=== PATIENT | female | born 1990 | race Caucasian/White ===

== ENCOUNTER 2023-03-21 16:25 | Emergency (ER) | payer OTHER, SELFPAY ==
[2023-03-21 16:32] VITALS: BP 110/76; PULSE 82; RESP 16; TEMP 36.8; O2SAT 100; BMI 21.0
--- NOTE | 2023-03-21 17:09 | ED.DENTAL1 ---
HPI - Dental/Oral General Chief complaint: Dental/Oral Stated complaint: DENTAL PAIN Time Seen by Provider: 03/21/23 16:53 Source: patient Mode of arrival: walk-in History of Present Illness HPI Narrative: patient is a 33-year-old female presents to the emergency department for continued swelling and pain to the left side of the face. Patient was seen at [facility] emergency department several weeks ago for swelling to the left side of face and was diagnosed with a dental abscess. Her pharmacy records, she was prescribed 300 mg of clindamycin 3 times a day for seven days. She states she has had a return of the swelling and no improvement of pain. She continues to have a foul taste in the mouth. No difficulty swallowing or breathing. No objective fevers or injuries. 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 She is not concerned for . Related Data Home Medications Medication Instructions Recorded Confirmed aripiprazole 2 mg tablet (Abilify) 2 mg PO DAILY 03/21/23 03/21/23 buprenorphine 300 mg/1.5 mL 300 mg subcut .monthy 03/21/23 03/21/23 solution,exten.rel.subcutaneous syringe (Sublocade) prazosin 1 mg capsule 1 mg PO DAILY 03/21/23 03/21/23 Previous Rx's Medication Instructions Recorded clindamycin HCl 150 mg capsule 300 mg PO Q6H 10 days #80 caps 03/21/23 ketorolac 10 mg tablet 10 mg PO TID PRN pain #10 tabs 03/21/23 ondansetron 4 mg disintegrating 4 mg PO Q6H PRN nausea and 03/21/23 tablet vomiting #12 tabs Allergies Allergy/AdvReac Type Severity Reaction Status Date / Time cefaclor [From [facility]] Allergy Severe Verified 03/21/23 16:32 Review of Systems ROS Constitutional Denies: fever or chills Ears, nose, mouth, and throat Denies: throat pain Cardiovascular Denies: chest pain Respiratory Denies: shortness of breath or cough Gastrointestinal Denies: nausea or vomiting Musculoskeletal Denies: back pain Integumentary/Breast Denies: rash Neurological Reports: headache Endocrine Denies: excessive urination Hematologic/Lymphatic Denies: easy bruising Exam Narrative Exam Narrative: Gen.: Awake, alert, in no distress Head: Normocephalic, atraumatic ENT: Moist mucous membranes; mild edema noted in the left mandible, airway widely open and patent with uvula midline. Normal speech. No trismus or drooling. Left tympanic membrane is clear. Multiple dental caries noted in the mouth with root exposure and erosion of tooth #16 and tooth #17. No redness or swelling under the tongue. Respiratory: No respiratory distress Extremities: Moves extremities equally Psych: Normal mood and affect Neuro: No focal neuro deficit Skin: Warm, dry, intact Constitutional Vital Signs, click to edit/add: Last Vital Signs Temp 98.2 F 03/21/23 16:32 Pulse 82 03/21/23 16:32 Resp 16 03/21/23 16:32 BP 110/76 03/21/23 16:32 Pulse Ox 100 03/21/23 16:32 O2 Del Method Room Air 03/21/23 16:32 Course Vital Signs Vital signs: Vital Signs Temperature 98.2 F 03/21/23 16:32 Pulse Rate 82 03/21/23 16:32 Respiratory Rate 16 03/21/23 16:32 Blood Pressure 110/76 03/21/23 16:32 Pulse Oximetry 100 03/21/23 16:32 Oxygen Delivery Method Room Air 03/21/23 16:32 Temperature 98.2 F 03/21/23 16:32 Pulse Rate 82 03/21/23 16:32 Respiratory Rate 16 03/21/23 16:32 Blood Pressure 110/76 03/21/23 16:32 Pulse Oximetry 100 03/21/23 16:32 Oxygen Delivery Method Room Air 03/21/23 16:32 MDM - Dental/Oral MDM Narrative Medical decision making narrative: patient with multiple dental caries and generally poor dentition. She is given a referral for [facility] dentistry so that she has a tertiary care referral for dentistry if needed. She is given topical analgesia and NSAIDs for pain. She is prescribed an appropriate length of clindamycin for dental abscess. He is encouraged to finish the antibiotics, follow-up with dentist and return to the Emergency Room if symptoms change or worsen. Medical Records Attestation: I reviewed the patient's medical records. Discharge Plan Discharge Chief Complaint: Dental/Oral Clinical Impression: Dental caries, Toothache, Dental abscess Patient Disposition: Home, Self-Care Time of Disposition Decision: 17:06 Condition: Good Prescriptions / Home Meds: New clindamycin HCl 150 mg capsule 300 mg PO Q6H 10 Days Qty: 80 0RF ketorolac 10 mg tablet 10 mg PO TID PRN (Reason: pain) Qty: 10 0RF ondansetron 4 mg tablet,disintegrating 4 mg PO Q6H PRN (Reason: nausea and vomiting) Qty: 12 0RF No Action aripiprazole [Abilify] 2 mg tablet 2 mg PO DAILY Sublocade 300 mg/1.5 mL solution, extended rel syringe 300 mg SUBCUT .monthy prazosin 1 mg capsule 1 mg PO DAILY Instructions: Dental Abscess (ED), Toothache (ED) Additional Instructions: Follow up dental; [facility] [phone] Stand Alone Forms: Portal Instructions Referrals: Physician,Non-Staff, MD [Primary Care Provider] - 1 week
[2023-03-21] MEDS: BENZOCAINE 30 ML, lidocaine HCL 15 ML MM (17:16)
== END 2023-03-21 17:19 | disposition home or self-care (01) ==
PROVIDERS: Emergency Provider Emergency Medicine Emergency Medical Services
DX: K04.7 Periapical abscess without sinus (principal); K02.9 Dental caries, unspecified; K08.89 Other specified disorders of teeth and supporting structures; Z79.899 Other long term (current) drug therapy
CPT/HCPCS: 99283

== ENCOUNTER 2023-11-26 12:35 | Emergency (ER) | payer OTHER, SELFPAY ==
[2023-11-26 12:45] VITALS: BP 142/75; PULSE 84; TEMP 36.9; O2SAT 99; BMI 23.4
--- NOTE | 2023-11-26 13:37 | ED.DENTAL1 ---
HPI - Dental/Oral General Chief complaint: Dental/Oral Stated complaint: MOUTH PAIN Time Seen by Provider: 11/26/23 12:51 Source: patient Mode of arrival: walk-in Limitations: no limitations History of Present Illness HPI Narrative: 33-year-old female presents for tooth ache. She is complaining of pain to the left lower dentition posteriorly. She is , 15 weeks, and she states they cannot take her tooth out until December. She has been on some antibiotics recently. No fever or difficulty swallowing. The pain is moderate to severe and throbbing and continuous. This is an ongoing problem that she has had for weeks. Related Data Home Medications ?Medication ?Instructions ?Recorded ?Confirmed aripiprazole 2 mg tablet (Abilify) 2 mg PO DAILY 03/21/23 03/21/23 buprenorphine 300 mg/1.5 mL 300 mg subcut .monthy 03/21/23 03/21/23 solution,exten.rel.subcutaneous syringe (Sublocade) prazosin 1 mg capsule 1 mg PO DAILY 03/21/23 03/21/23 Previous Rx's ?Medication ?Instructions ?Recorded clindamycin HCl 150 mg capsule 300 mg (2 x 150 mg) PO Q6H 10 days 03/21/23 #80 caps ketorolac 10 mg tablet 10 mg PO TID PRN pain #10 tabs 03/21/23 ondansetron 4 mg disintegrating 4 mg PO Q6H PRN nausea and 03/21/23 tablet vomiting #12 tabs clindamycin HCl 300 mg capsule 300 mg PO Q6H 10 days #40 caps 11/26/23 Allergies Allergy/AdvReac Type Severity Reaction Status Date / Time cefaclor [From [facility]] Allergy Severe Verified 03/21/23 16:32 Review of Systems ROS Narrative A ten point review of systems is negative except as noted above. Exam Narrative Exam Narrative: Nurses note and vital signs reviewed and patient is not hypoxic. General: The patient appears well and in no apparent distress. Patient is resting comfortably on cart. Skin: Warm, dry, no pallor noted. There is no rash noted. Head: Normocephalic, atraumatic Eye: Normal conjunctiva, no drainage Ears, Nose, Mouth, and Throat: oral mucosa is moist. Nares patent. No facial swelling or erythema. Dental caries is noted in the left lower posterior dentition. No bleeding or pus present. No gingival swelling or erythema. No swelling to the floor of her mouth. Cardiovascular: Regular Rate and Rhythm Respiratory: Patient is in no distress, no accessory muscle use, lungs are clear to auscultation, no wheezing, rales or rhonchi Back: non-tender GI: Soft and nontender Musculoskeletal: The patient has no evidence of calf tenderness, no pitting edema, symmetrical pulses noted bilaterally Neurological: A&O, normal speech Psychiatric: Cooperative Constitutional Vital Signs, click to edit/add: Last Vital Signs Temp 98.4 F 11/26/23 12:45 Pulse 84 11/26/23 12:45 Resp 16 11/26/23 12:45 BP 142/75 H 11/26/23 12:45 Pulse Ox 99 11/26/23 12:45 Course Vital Signs Vital signs: Vital Signs Temperature 98.4 F 11/26/23 12:45 Pulse Rate 84 11/26/23 12:45 Respiratory Rate 16 11/26/23 12:45 Blood Pressure 142/75 H 11/26/23 12:45 Pulse Oximetry 99 11/26/23 12:45 Temperature 98.4 F 11/26/23 12:45 Pulse Rate 84 11/26/23 12:45 Respiratory Rate 16 11/26/23 12:45 Blood Pressure 142/75 H 11/26/23 12:45 Pulse Oximetry 99 11/26/23 12:45 MDM - Dental/Oral MDM Narrative Medical decision making narrative: We discussed her and how it affects her care regarding the dental issue. She is prescribed clindamycin and will follow-up with her dentist. Treatment diagnosis and follow-up were discussed with the patient. Differential Diagnosis Differential diagnosis: Likely gingival abscess, dental caries, toothache and dental abscess Discharge Plan Discharge Stand Alone Forms: Portal Instructions Chief Complaint: Dental/Oral Clinical Impression: Dental caries, Toothache Patient Disposition: Home, Self-Care Time of Disposition Decision: 13:36 Condition: Good Mode of Transportation: Private Vehicle Prescriptions / Home Meds: New clindamycin HCl 300 mg capsule 300 mg PO Q6H 10 Days Qty: 40 0RF No Action aripiprazole [Abilify] 2 mg tablet 2 mg PO DAILY Sublocade 300 mg/1.5 mL solution, extended rel syringe 300 mg SUBCUT .monthy prazosin 1 mg capsule 1 mg PO DAILY clindamycin HCl 150 mg capsule 300 mg PO Q6H 10 Days Qty: 80 0RF ketorolac 10 mg tablet 10 mg PO TID PRN (Reason: pain) Qty: 10 0RF ondansetron 4 mg tablet,disintegrating 4 mg PO Q6H PRN (Reason: nausea and vomiting) Qty: 12 0RF Print Language: Wallisian Instructions: Toothache (ED) Additional Instructions: Follow-up with your dentist when able Referrals: Physician,Non-Staff, MD [Primary Care Provider] - 1 week
[2023-11-26 13:42] VITALS: PULSE 74; O2SAT 100
== END 2023-11-26 13:44 | disposition home or self-care (01) ==
PROVIDERS: Emergency Provider Emergency Medicine
DX: O99.611 Diseases of the digestive system complicating pregnancy, first trimester (principal); K02.9 Dental caries, unspecified; K08.89 Other specified disorders of teeth and supporting structures; Z3A.15 15 weeks gestation of pregnancy; Z79.899 Other long term (current) drug therapy
CPT/HCPCS: 99283

== ENCOUNTER 2024-02-05 09:40 | Emergency (ER) | payer OTHER, SELFPAY ==
[2024-02-05 09:44] VITALS: BP 119/62; PULSE 70; TEMP 36.6; O2SAT 99; BMI 25.8
--- OUTSIDE RECORDS SUMMARY | 2024-02-05 10:06 | XMS_ITS | CCD ---
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 Translations: [Tobacco use] Onset: 09-14-2016 01-12-2021 Episodic Residual codes; unclassified (12 sources) History of gestational hypertension; Translations: [Personal history of other complications of , childbirth and the puerperium] Onset: 08-04-2020 08-04-2020 Episodic Residual codes; unclassified (1 source) Personal history of other specified conditions; Translations: [Personal history of other specified conditions] Onset: 10-06-2023 Episodic Residual codes; unclassified (1 source) Personal history of other complications of , childbirth and the puerperium; Translations: [Personal history of other complications of , childbirth and the puerperium] Onset: 08-04-2020 Episodic Residual codes; unclassified (1 source) 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; Translations: [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] Onset: 09-26-2023 Episodic Residual codes; unclassified (1 source) Less than 8 weeks gestation of ; Translations: [Less than 8 weeks gestation of ] Onset: 09-26-2023 Episodic Sexually transmitted infections (not HIV or hepatitis) (11 sources) Chlamydial cervicitis; Translations: [Other chlamydial infection of lower genitourinary tract] Onset: 04-18-2017 Resolved: 09-11-2017 09-11-2017 Episodic Results Test Name Value Interpretation Reference Range Facility Buprenorphine Ql (U)on 01-16 BUPRENORPHINE, URINE QUALITATIVE Negative Normal NEG [facility] Comment on above: Result Comment: Urin e Buprenorphine cut of value = 10 ng/mL This report is intended for use in clinical monitoring or management of patients. Performed By: #### C BCA, FEPR, 2276-4, 3209-4 #### [facility] ([id number]) [address], [address] [place] [address] DRUG SCREEN, URINEon 024 AMPHETAMINE/METHAMP Negative Normal NEG [facility] Comment on above: Result Comment: AMPH /METH screening cut off = 1000 ng/mL Performed By: #### C BCA, FEPR, 2276-4, 3209-4 #### [facility] ([id number]) [address] [facility], [address] [place] [address] BARBITURATES Negative Normal NEG [facility] Comment on above: Result Comment: Pamela iturates screening cut off value = 200 ng/mL Performed By: #### C BCA, FEPR, 6-4, 3209-4 #### [facility] ([id number]) [address], [address] [place] [address] BENZODIAZEPINES Negative Normal NEG [facility] Comment on above: Result Comment: Chip odiazepines screening cut off value = 200 ng/mL Performed By: #### C BCA, FEPR, 6-4, 3209-4 #### [facility] ([id number]) [address], [address] [place] [address] CANNABINOIDS Negative Normal NEG [facility] Comment on above: Result Comment: Dm abinoids/THC screening cut off value = 50 ng/mL Performed By: #### C BCA, FEPR, 6-4, 3209-4 #### [facility] ([id number]) [address], [address] [place] [address] COCAINE METABOLITE Negative Normal NEG [facility] Comment on above: Result Comment: Coca ine screening cut off value = 300 ng/mL Performed By: #### C BCA, FEPR, 2275-4, 3209-4 #### [facility] ([id number]) [address], [address] [place] [address] ECSTASY Negative Normal NEG [facility] Comment on above: Result Comment: Ecst asy screening cut off value = 500 ng/mL This report is intended for use in clinical monitoring or management of patients. Performed By: #### C BCA, FEPR, 6-4, 3209-4 #### [facility] ([id number]) [address], [address] [place] [address] METHADONE Negative Normal NEG [facility] Comment on above: Result Comment: Meth adone screening cut off value = 300 ng/mL. Performed By: #### C BCA, FEPR, 6-4, 3209-4 #### [facility] ([id number]) [address] [place] [address], [address] [place] [address] OPIATES Negative Normal NEG [facility] Comment on above: Result Comment: Opia jason screening cut off value = 300 ng/mL NOTE: This test is used for the detection of codeine, hydrocodone (>1000 ng/mL), morphine and hydromorphone (>900 ng/mL) in urine. Performed By: #### C BCA, FEPR, 6-4, 3209-4 #### [facility] ([id number]) [address] [place] [address], [address] [place] [address] OXYCODONE Negative Normal NEG [facility] Comment on above: Result Comment: Oxyc odone screening cut off value = 300 ng/mL NOTE: This test is used for the detection of oxycodone and oxymorphone in urine. Performed By: #### C PRERNA, FEPR, 6-4, 3209-4 #### [facility] ([id number]) [address] [place] [address], [address] [place] [address] PHENCYCLIDINE Negative Normal NEG [facility] Comment on above: Result Comment: Phen cyclidine screening cut off value = 25 ng/mL Performed By: #### C PRERNA, FEPR, 6-4, 3209-4 #### [facility] ([id number]) [address] [place] [address], [address] [place] [address] fentaNYL+Norfentanyl Screen Ql (U)on 01-17-2024 FENTANYL, URINE QUAL. Negative Normal NEG [facility] Comment on above: Result Comment: Fent anyl screening cutoff = 5ng/ml This report is intended for use in clinical monitoring or management of patients. Performed By: #### C BCA, FEPR, 6-4, 3209-4 #### [facility] ([id number]) [address] [facility], [address] [place] [address] AFP panelon 12-20-2023 AFP SINGLE MARKER SCRN, MATERNAL, SERUM SEE COMMENTS 12/21/2023 02:04 PM Normal [facility] Comment on above: Result Comment: NOTE Test Result Flag Unit RefValue AFP Single Marker SCRN, Maternal, S Results Summary Normal risk Neural tube defect risk estimate 1/10,000 AFP 61.8 ng/mL AFP MoM 1.09 MoM <2.50 INTERPRETATION Screen negative for neural tube defects. RECOMMENDED FOLLOW UP None. Specimen collection date 12/20/23 Maternal date of 89 Calculated age at ZION 34 years Maternal Weight 146 lbs Insulin dependent diabetes No Patient race Black Current cigarette smoking status non-Smoker ZION by LMP 05/17/2024 GA on collection by dates 18,5 wk,d GA used in risk estimate Dates estimate Number of Fetuses 1 Number of Chorions Unknown IVF No Prev w/ Neural Tube Unknown Defect Patient or father of baby has a Unknown NTD Initial or repeat testing Initial testing Physician GENERAL TEST INFORMATION See Note This screening provides an estimation of risk, not a diagnosis. Incorrect or incomplete information may significantly alter results. Results may be unreliable in twin pregnancies with a demise. Results are not available for pregnancies with triplets and higher-order multiples. A positive result occurs when the AFP MoM equals or exceeds 2.5. Screen results and family history influence individual risk. If there is a family history of a neural tube defect, chromosome abnormality, or other inherited condition, consider the option of a genetic consultation. For further information, please contact the maternal screening laboratory at . ADDITIONAL INFORMATION This test was developed and its performance characteristics determined by [facility] in a manner consistent with CLIA requirements. This test has not been cleared or approved by the U.S. Food and Drug Administration. Test Performed by: [facility] - [address] [address] Dimensional Inspector: Vini Periera M.D. Ph.D.; CLIA# [id number] Buprenorphine Ql (U)on 12-19 BUPRENORPHINE, URINE QUALITATIVE Positive Abnormal NEG [facility] Comment on above: Result Comment: Urin e Buprenorphine cut of value = 10 ng/mL This report is intended for use in clinical monitoring or management of patients. Performed By: #### C PRERNA, FEPR, 6-4, 9-4 #### [facility] ([id number]) [address], [address] [place] [address] CHLAMYDIA/GC BY PCRon 2023 CHLAMYDIA/GC BY PCR SPECIMEN SOURCE CERVIX CHLAMYDIA DNA(PCR) Negative (qualifier value) Chlamydia trachomatis not detected by nucleic acid amplification. This does not exclude the possibility of infection because results are dependent on adequate specimen collection. GONORRHOEAE DNA(PCR) Negative (qualifier value) Neisseria gonorrhoeae not detected by nucleic acid amplification. This does not exclude the possibility of infection because results are dependent on adequate specimen collection. Normal [facility] Comment on above: Performed By: #### C PRERNA, FEPR, 2275-4, 3208-4 #### [facility] ([id number]) [address], [address] [place] [address] DRUG SCREEN, URINEon 024 AMPHETAMINE/METHAMP Negative Normal NEG [facility] Comment on above: Result Comment: AMPH /METH screening cut off = 1000 ng/mL Performed By: #### C PRERNA, FEPR, 2275-4, 3208-4 #### [facility] ([id number]) [address], [address] [place] [address] BARBITURATES Negative Normal NEG [facility] Comment on above: Result Comment: Pamela iturates screening cut off value = 200 ng/mL Performed By: #### C BCA, FEPR, 6-4, 3209-4 #### [facility] ([id number]) [address], [address] [place] [address] BENZODIAZEPINES Negative Normal NEG [facility] Comment on above: Result Comment: Chip odiazepines screening cut off value = 200 ng/mL Performed By: #### C BCA, FEPR, 6-4, 3209-4 #### [facility] ([id number]) [address], [address] [place] [address] [facility] Comment on above: Result Comment: Dm abinoids/THC screening cut off value = 50 ng/mL Performed By: #### C BCA, FEPR, 6-4, 9-4 #### [facility] ([id number]) [address], [address] [place] [address] COCAINE METABOLITE Negative Normal [facility] Comment on above: Result Comment: Coca ine screening cut off value = 300 ng/mL Performed By: #### C BCA, FEPR, 2275-4, 3209-4 #### [facility] ([id number]) [address], [address] [place] [address] ECSTASY Negative [facility] Comment on above: Result Comment: Ecst asy screening cut off value = 500 ng/mL This report is intended for use in clinical monitoring or management of patients. Performed By: #### C BCA, FEPR, 2275-4, 9-4 #### [facility] ([id number]) [address], [address] [place] [address] [address] [facility] Comment on above: Result Comment: Meth adone screening cut off value = 300 ng/mL. Performed By: #### C BCA, FEPR, 6-4, 3209-4 #### [facility] ([id number]) [address], [address] [place] [address] [address] [facility] Comment on above: Result Comment: Opia jason screening cut off value = 300 ng/mL NOTE: This test is used for the detection of codeine, hydrocodone (>1000 ng/mL), morphine and hydromorphone (>900 ng/mL) in urine. Performed By: #### C BCA, FEPR, 2275-4, 3208-4 #### [facility] ([id number]) [address], [address] [place] [address] OXYCODONE Negative Normal NEG [facility] Comment on above: Result Comment: Oxyc odone screening cut off value = 300 ng/mL NOTE: This test is used for the detection of oxycodone and oxymorphone in urine. Performed By: #### C BCA, FEPR, 2275-4, 3208-4 #### [facility] ([id number]) [address], [address] [place] [address] PHENCYCLIDINE Negative Normal NEG [facility] Comment on above: Result Comment: Phen cyclidine screening cut off value = 25 ng/mL Performed By: #### C BCA, FEPR, 2275-, 3208-4 #### [facility] ([id number]) [address], [address] [place] [address] HBV surface Ab IA Qnon 12-19 Anti HBs quant. 3751.65 mIU/mL Normal [facility] Comment on above: Result Comment: Vacc inated: >=12mIU/mL, Positive (Immune) Unvaccinated: <8mIU/mL, Negative (Not Immune) 8-11.99 mIU/mL: Indeterminate, (Considered Not Immune) Performed By: #### C BCA, FEPR, 2275-4, 3208-4 #### [facility] ([id number]) [address], [address] [place] [address] HBV surface Ag IA Qlon 12-19 HEPATITIS B SURF AG Negative Normal NEG [facility] Comment on above: Performed By: #### C BCA, FEPR, 6-4, 9-4 #### [facility] ([id number]) [address], [address] [place] [address] HCV Ab IA Qlon 12-20-2023 ANTI HCV W/PCR REFLX Non-Reactive Normal NRCT [facility] Comment on above: Result Comment: If recent infection suspected, recommend repeat testing (>2 months). Eiqjex-ts-kvzdik ratio is <0.80. Performed By: #### C PRERNA, NIKUNJ, 6-4, 3208-4 #### [facility] ([id number]) [address], [address] [place] [address] VAGINITIS PANEL PCRon 2023 VAGINITIS PANEL PCR BACT. VAGINOSIS DNA Not detected (qualifier value) Qualitative results are reported based on detection and quantitation of targeted organism markers which include: Lactobacillus spp. (L. crispatus and L. jensenii), Gardnerella vaginalis, Atopobium vaginae, Bacterial Vaginosis Associated Bacteria-2 (BVAB-2) and Megasphaera-1 BOO SPECIES DNA Not detected (qualifier value) Boo species not detected include: C. albicans, C. tropicalis, C. parapsilosis or C. dubliniensis BOO KRUSEI DNA Not detected (qualifier value) No Boo krusei detected BOO GLABRATA DNA Not detected (qualifier value) No Boo glabrata detected TRICHOMONAS VAG DNA Not detected (qualifier value) No Trichomonas vaginalis detected NOTE BD MAX Vaginal Panel has not been evaluated for patients under 18 years old. Results for these patients should be reviewed and assessed in accordance with clinical presentation to determine patient diagnosis. Normal [facility] Comment on above: Performed By: #### C NIKUNJ GRAFF, 2275-10, 3208-10 #### [facility] ([id number]) [address], [address] [place] [address] Coagulation factor VIII acti vity actual/normal Coag (PPP) [Relative time]on 12-19-2023 FACTOR 8 ASSAY 70 % act Normal 50-150 [facility] Comment on above: Performed By: #### C PRERNA, FEPR, 2275-4, 3208-4 #### [facility] ([id number]) [address], [address] [place] [address] Buprenorphine Ql (U)on 11-22 BUPRENORPHINE, URINE QUALITATIVE Positive Abnormal NEG [facility] Comment on above: Result Comment: Urin e Buprenorphine cut of value = 10 ng/mL This report is intended for use in clinical monitoring or management of patients. Performed By: #### C BCA, FEPR, 6-4, 3209-4 #### [facility] ([id number]) [address], [address] [place] [address] DRUG SCREEN, URINEon 024 AMPHETAMINE/METHAMP Negative Normal NEG [facility] Comment on above: Result Comment: AMPH /METH screening cut off = 1000 ng/mL Performed By: #### C BCA, FEPR, 6-4, 3209-4 #### [facility] ([id number]) [address], [address] [place] [address] BARBITURATES Negative Normal NEG [facility] Comment on above: Result Comment: Pamela iturates screening cut off value = 200 ng/mL Performed By: #### C BCA, FEPR, 6-4, 3209-4 #### [facility] ([id number]) [address], [address] [place] [address] BENZODIAZEPINES Negative Normal NEG [facility] Comment on above: Result Comment: Chip odiazepines screening cut off value = 200 ng/mL Performed By: #### C BCA, FEPR, 6-4, 3209-4 #### [facility] ([id number]) [address], [address] [place] [address] CANNABINOIDS Negative Normal NEG [facility] Comment on above: Result Comment: Dm abinoids/THC screening cut off value = 50 ng/mL Performed By: #### C BCA, FEPR, 6-4, 3209-4 #### [facility] ([id number]) [address], [address] [place] [address] COCAINE METABOLITE Negative Normal NEG [facility] Comment on above: Result Comment: Coca ine screening cut off value = 300 ng/mL Performed By: #### C BCA, FEPR, 2275-, 3208-4 #### [facility] ([id number]) [address] [facility], [address] [place] [address] ECSTASY Negative Normal NEG [facility] Comment on above: Result Comment: Ecst asy screening cut off value = 500 ng/mL This report is intended for use in clinical monitoring or management of patients. Performed By: #### C BCA, FEPR, 2275-, 3208-4 #### [facility] ([id number]) [address] [facility], [address] [place] [address] METHADONE Negative Normal NEG [facility] Comment on above: Result Comment: Meth adone screening cut off value = 300 ng/mL. Performed By: #### C BCA, FEPR, 2275-10, 3208-4 #### [facility] ([id number]) [address] [facility], [address] [place] [address] OPIATES Negative Normal NEG [facility] Comment on above: Result Comment: Opia jason screening cut off value = 300 ng/mL NOTE: This test is used for the detection of codeine, hydrocodone (>1000 ng/mL), morphine and hydromorphone (>900 ng/mL) in urine. Performed By: #### C BCA, FEPR, 2275-, 3208-4 #### [facility] ([id number]) [address] [facility], [address] [place] [address] OXYCODONE Negative Normal NEG [facility] Comment on above: Result Comment: Oxyc odone screening cut off value = 300 ng/mL NOTE: This test is used for the detection of oxycodone and oxymorphone in urine. Performed By: #### C BCA, FEPR, 2275-, 3208-4 #### [facility] ([id number]) [address] [facility], [address] [place] [address] PHENCYCLIDINE Negative Normal NEG [facility] Comment on above: Result Comment: Phen cyclidine screening cut off value = 25 ng/mL Performed By: #### C PRERNA, FEPR, 2276-4, 3209-4 #### [facility] ([id number]) [address] [facility], [address] [place] [address] fentaNYL+Norfentanyl Screen Ql (U)on 11-23-2023 FENTANYL, URINE QUAL. Negative Normal NEG [facility] Comment on above: Result Comment: Fent anyl screening cutoff = 5ng/ml This report is intended for use in clinical monitoring or management of patients. Performed By: #### C PRERNA, FEPR, 2276-4, 3209-4 #### [facility] ([id number]) [address] [facility], [address] [place] [address] CHLAMYDIA/GC BY PCRon 2023 CHLAMYDIA/GC BY PCR SPECIMEN SOURCE CERVIX Corrected on 11/12 AT 2154: Previously reported as URINE MULTISTIX NEGATIVE CONTROL CHLAMYDIA DNA(PCR) Negative (qualifier value) Chlamydia trachomatis not detected by nucleic acid amplification. This does not exclude the possibility of infection because results are dependent on adequate specimen collection. GONORRHOEAE DNA(PCR) Negative (qualifier value) Neisseria gonorrhoeae not detected by nucleic acid amplification. This does not exclude the possibility of infection because results are dependent on adequate specimen collection. Normal [facility] Comment on above: Performed By: #### C GS #### [facility] ([id number]) [address] [facility], [address] [place] [address] COMPLETE BLOOD COUNTon 11-12 Erythrocyte distribution width (RBC) [Ratio] 13.9 % Normal 11.5-15.0 [facility] Comment on above: Performed By: #### 2 0415-6, CBC, CMP #### [facility] ([id number]) [address] [place] [address], [place] [address] Hematocrit (Bld) [Volume fraction] 34.9 % Low 35-47 [facility] Comment on above: Performed By: #### 2 0415-6, CBC, CMP #### [facility] ([id number]) [address] [place] [address] Hemoglobin (Bld) [Mass/Vol] 12.2 g/dL Normal 11.7-15. 5 [facility] Comment on above: Performed By: #### 2 0415-6, CBC, CMP #### [facility] ([id number]) [address] [place] [address] MCH (RBC) [Entitic mass] 31.6 pg Normal 27-34 [facility] Comment on above: Performed By: #### 2 0415-6, CBC, CMP #### [facility] ([id number]) [address] [place] [address] MCHC (RBC) [Mass/Vol] 35.1 g/dL Normal 32-36 [facility] Comment on above: Performed By: #### 2 0415-6, CBC, CMP #### [facility] ([id number]) [address] [place] [address] MCV (RBC) [Entitic vol] 90 fL Normal 80-100 [facility] Comment on above: Performed By: #### 2 0415-6, CBC, CMP #### [facility] ([id number]) [address] [place] [address] Platelet mean volume (Bld) [Entitic vol] 9.0 fL Normal 7-12 [facility] Comment on above: Performed By: #### 2 0415-6, CBC, CMP #### [facility] ([id number]) [address] [place] [address] Platelets (Bld) [#/Vol] 220 10*3/uL Normal 150-450 [facility] Comment on above: Performed By: #### 2 0415-6, CBC, CMP #### [facility] ([id number]) [address] [place] [address] RBC COUNT 3.87 X10E12/L Normal 3.80-5.20 [facility] Comment on above: Performed By: #### 2 0415-6, CBC, CMP #### [facility] ([id number]) [address] [place] [address] WBC (Bld) [#/Vol] 10.7 10*3/uL Normal 4.0-11.0 [facility] Comment on above: Performed By: #### 2 0415-6, CBC, CMP #### [facility] ([id number]) [address] [place] [address] COMPREHENSIVE METABOLIC PANE Rohit 11-13-2023 Albumin [Mass/Vol] 3.8 g/dL Normal 3.2-5.3 [facility] Comment on above: Performed By: #### 2 0415-6, CBC, CMP #### [facility] ([id number]) [address] [place] [address] ALP [Catalytic activity/Vol] 44 U/L Normal 39-130 [facility] Comment on above: Performed By: #### 2 0415-6, CBC, CMP #### [facility] ([id number]) [address] [place] [address] ALT [Catalytic activity/Vol] 11 U/L Normal 0-31 [facility] Comment on above: Performed By: #### 2 0415-6, CBC, CMP #### [facility] ([id number]) [address] [place] [address] Anion gap [Moles/Vol] 6 mmol/L Normal 5-15 [facility] Comment on above: Performed By: #### 2 0415-6, CBC, CMP #### [facility] ([id number]) [address] [place] [address] [place] [address] AST [Catalytic activity/Vol] 19 U/L Normal 0-41 [facility] Comment on above: Performed By: #### 2 0415-6, CBC, CMP #### [facility] ([id number]) [address] [place] [address] Bilirubin [Mass/Vol] 0.3 mg/dL Normal 0.3-1.2 [facility] Comment on above: Performed By: #### 2 0415-6, CBC, CMP #### [facility] ([id number]) [address] [place] [address] Calcium [Mass/Vol] 8.8 mg/dL Normal 8.5-10.5 [facility] Comment on above: Performed By: #### 2 0415-6, CBC, CMP #### [facility] ([id number]) [address] [place] [address] Chloride [Moles/Vol] 102 mmol/L Normal 98-109 [facility] Comment on above: Performed By: #### 2 0415-6, CBC, CMP #### [facility] ([id number]) [address] [place] [address] CO2 [Moles/Vol] 27 mmol/L Normal 22-32 [facility] [facility] Comment [facility]: Performed By: #### 2 0415-6, CBC, CMP #### [facility] ([id number]) [address] [place] [address] 51132 Creatinine [Mass/Vol] 0.54 mg/dL Normal 0.40-1.00 [facility] Comment on above: Result Comment: METH OD TRACEABLE TO IDMS STANDARD Performed By: #### 2 0415-6, CBC, CMP #### [facility] ([id number]) [address] [place] [address] 75531 eGFR (CKD-EPI) NON-RACE DEPENDENT >90 Normal >59 [facility] Comment on above: Result Comment: Reported eGFR is based on the CKD-EPI 2020 equation that does not use a race coefficient. Performed By: #### 2 0415-6, CBC, CMP #### [facility] ([id number]) [address] [place] [address] 09655 Glucose [Mass/Vol] 101 mg/dL High 65-99 [facility] Comment on above: Performed By: #### 2 0415-6, CBC, CMP #### [facility] ([id number]) [address] [place] [address] 90008 Potassium [Moles/Vol] 3.9 mmol/L Normal 3.5-5.0 [facility] Comment on above: Performed By: #### 2 0415-6, CBC, CMP #### [facility] ([id number]) [address] [place] [address] 76596 Protein [Mass/Vol] 7.2 g/dL Normal 6.0-8.0 [facility] Comment on above: Performed By: #### 2 0415-6, CBC, CMP #### [facility] ([id number]) [address] [place] [address] 20596 Sodium [Moles/Vol] 135 mmol/L Normal 134-146 [facility] Comment on above: Performed By: #### 2 0415-6, CBC, CMP #### [facility] ([id number]) [address] [place] [address] 85799 Urea nitrogen [Mass/Vol] 10 mg/dL Normal 5-23 [facility] Comment on above: Performed By: #### 2 0415-6, CBC, CMP #### [facility] ([id number]) [address] [place] [address] 56338 HCG.beta subunit IA 3rd IS Q non 11-13-2023 [place] [address] m[IU]/mL Normal P [facility] Comment on above: Result Comment: NEW REFERENCE RANGE WEEKS (SINCE LMP) MIU/mL 3 WEEKS 5 - 50 4 WEEKS 5 - 426 5 WEEKS 18 - 7,340 6 WEEKS 1,080 - 56,500 7-8 WEEKS 7,650 - 229,000 9-12 WEEKS 25,700 - 288,000 13-16 WEEKS 13,300 - 254,000 17-24 WEEKS 4,060 - 165,400 25-40 WEEKS 3,640 - 117,000 MALES AND NON- FEMALES - <5 MIU/mL This test has been FDA approved for use in only. Elevated levels are not necessarily diagnostic for trophoblastic or nontrophoblastic neoplasms. Performed By: #### 2 0415-6, CBC, CMP #### [facility] ([id number]) [address] [place] [address] 44210 URINE CULTUREon 11-13-2023 Bacteria identified Cx Nom (U) CULTURE RESULTS <10,000 ORGANISMS/ML NORMAL URO GENITAL EBONI Normal [facility] Comment on above: Performed By: #### 6 30-4 #### [facility] ([id number]) [address], [address] [place] [address] URN MACROSCOPIC NURon 2023 BILIRUBIN BEN Negative Normal NEG [facility] Comment on above: Performed By: #### N UM #### [facility] ([id number]) [address] [place] [address] 97126 BLOOD/HGB BEN Negative Normal NEG [facility] Comment on above: Performed By: #### N UM #### [facility] ([id number]) [address] [place] [address] 73327 GLUCOSE BEN Negative Normal NEG [facility] Comment on above: Performed By: #### N UM #### [facility] ([id number]) [address] [place] [address] 89349 KETONES BEN Negative Normal NEG [facility] Comment on above: Performed By: #### N UM #### [facility] ([id number]) [address] [place] [address] 01110 LEUKOCYTE ESTERASE BEN Negative Normal NEG [facility] Comment on above: Performed By: #### N UM #### [facility] ([id number]) [address] [place] [address] 04213 NITRITE BEN Negative Normal NEG [facility] Comment on above: Performed By: #### N UM #### [facility] ([id number]) [address] [place] [address] 89980 PH BEN 6.0 Normal 5.0-8.5 [facility] Comment on above: Performed By: #### N UM #### [facility] ([id number]) [address] [place] [address] 95409 PROTEIN BEN Negative Normal NEG [facility] Comment on above: Performed By: #### N UM #### [facility] ([id number]) [address] [place] [address] 69284 SPECIFIC GRAVITY BEN >=1.030 Normal 1.003-1.035 [facility] Comment on above: Performed By: #### N UM #### [facility] ([id number]) [address] [place] [address] 98449 UROBILINOGEN BEN 0.2 eu/dL Normal <1.1 [facility] Comment on above: Performed By: #### N UM #### [facility] ([id number]) [address] [place] [address] 25763 US PREG LESS THAN 14 WKS OLGA Fernández 11-13-2023 US PREG LESS THAN 14 WKS SINGLE US PREG LESS THAN 14 WKS SINGLE Pelvic ultrasound History:Vaginal spotting and bleeding Comparison:None Findings: Single live IUP at 13 weeks 3 days. Glasford-rump length 7.42 cm. Heart rate 143 beats minute.. The gestational sac is normal in morphology. Gestational sac fluid volume is normal for this very early gestational age. Placental morphology and location cannot be determined based on this early gestational age. Maternal right ovary unremarkable. Left not visualized due to overlying bowel gas. Impression: * Single live IUP at 13 weeks 3 days. Workstation:[id number] Finalized by Jose Schultz MD on 11/13/2023 4:15 PM Normal [facility] VAGINITIS PANEL PCRon 2023 VAGINITIS PANEL PCR BACT. VAGINOSIS DNA Not detected (qualifier value) Qualitative results are reported based on detection and quantitation of targeted organism markers which include: Lactobacillus spp. (L. crispatus and L. jensenii), Gardnerella vaginalis, Atopobium vaginae, Bacterial Vaginosis Associated Bacteria-2 (BVAB-2) and Megasphaera-1 BOO SPECIES DNA Detected (qualifier value) Boo species result based on detection of one or more of the following species: C. albicans, C. tropicalis, C. parapsilosis or C. dubliniensis BOO KRUSEI DNA Not detected (qualifier value) No Boo krusei detected BOO GLABRATA DNA Not detected (qualifier value) No Boo glabrata detected TRICHOMONAS VAG DNA Not detected (qualifier value) No Trichomonas vaginalis detected NOTE BD MAX Vaginal Panel has not been evaluated for patients under 18 years old. Results for these patients should be reviewed and assessed in accordance with clinical presentation to determine patient diagnosis. Normal [facility] Comment on above: Performed By: #### V PPCR #### [facility] ([id number]) [address], [address] [place] [address] CHLAMYDIA/GC BY PCRon 2023 CHLAMYDIA/GC BY PCR SPECIMEN SOURCE CERVIX CHLAMYDIA DNA(PCR) Negative (qualifier value) Chlamydia trachomatis not detected by nucleic acid amplification. This does not exclude the possibility of infection because results are dependent on adequate specimen collection. GONORRHOEAE DNA(PCR) Negative (qualifier value) Neisseria gonorrhoeae not detected by nucleic acid amplification. This does not exclude the possibility of infection because results are dependent on adequate specimen collection. Normal [facility] Comment on above: Performed By: #### C BCA, FEPR, 2276-4, 3209-4 #### [facility] ([id number]) [address] [place] [address], [address] [place] [address] Cytologyon 10-27-2023 Cytology Normal [facility] Comment on above: Result Comment: [facility] [address] [place] [address] Gynecologic Cytology Consultation Patient Name:NAHOMY GALVAN:1990 (Age: 33)Gender:FTaken:4Reported:11/14/2023hysician(s) :Nicole Kern CNP ([phone])Copy To: Rec. #:[id number]: #[id number] Final Cytologic Interpretation ThinPrep Pap Test (Vaginal/Cervical): Satisfactory for evaluation. A transformation zone component was not noted. The lack of a transformation zone component in a patient is not unusual. NEGATIVE FOR INTRAEPITHELIAL LESION OR MALIGNANCY. jja/11/14/2023 Interpretation performed at [facility], [address] [place] [address], License number: [id number]. 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 Normal [facility] Comment on above: Performed By: #### C PRERNA, FEPR, 2276-4, 3209-4 #### [facility] ([id number]) [address], [address] [place] [address] Buprenorphine Ql (U)on 10-05 Interpretation and review of laboratory results Abnormal [facility] BUPRENORPHINE, URINE QUALITATIVE Positive Abnormal NEG [facility] Comment on above: Result Comment: Resulted with reagent depletion. Most common causes include recent dose, change in meds or adulterated sample. Clinical correlation necessary. Urine Buprenorphine cut of value = 10 ng/mL This report is intended for use in clinical monitoring or management of patients. Performed By: #### C PRERNA, FEPR, 2276-4, 3209-4 #### [facility] ([id number]) [address] [facility], [address] [place] [address] Buprenorphine, urineon 10-05 Buprenorphine Ql (U) Positive Abnormal Negativ e^Neg ative [facility] Comment on above: Resulted with reagent depletion. Most common causes include recent dose, change in meds or adulterated sample. Clinical correlation necessary. Urine Buprenorphine cut of value = 10 ng/mL This report is intended for use in clinical monitoring or management of patients. CBC without diffon Erythrocyte distribution width (RBC) [Ratio] 13.5 % 11.5 - 15.0 % [facility] Hematocrit (Bld) [Volume fraction] 37.9 % 35 - 47 % [facility] Hemoglobin (Bld) [Mass/Vol] 12.9 g/dL 11.7 - 15.5 g/dL [facility] MCH (RBC) [Entitic mass] 30.8 pg 27 - 34 pg [facility] MCHC (RBC) [Mass/Vol] 34.2 g/dL 32 - 36 g/dL P [facility] MCV (RBC) [Entitic vol] 90 fL 80 - 100 fL [facility] Platelet mean volume (Bld) [Entitic vol] 10.0 fL 7 - 12 fL [facility] Platelets (Bld) [#/Vol] 215 10*3/uL [facility] RBC (Bld) [#/Vol] 4.21 10*6/uL [facility] WBC corrected for nucl RBC Auto (Bld) [#/Vol] 10.8 [facility] COMPLETE BLOOD COUNTon 10-05 Erythrocyte distribution width (RBC) [Ratio] 13.5 % Normal 11.5-15.0 [facility] Comment on above: Performed By: #### C BC, CMP, 2532-0, 3084-1, 5196-1, 82218-6, 44968-3, 30915-2, 51035-0, 20048-8 #### [facility] ([id number]) [address], [address] [place] [address] Hematocrit (Bld) [Volume fraction] 37.9 % Normal 35-47 [facility] Comment on above: Performed By: #### C BC, CMP, 2532-0, 3084-1, 5196-1, 47818-5, 74121-3, 21914-7, 28465-0, 69750-4 #### [facility] ([id number]) [address], [address] [place] [address] Hemoglobin (Bld) [Mass/Vol] 12.9 g/dL Normal 11.7-15. 5 [facility] Comment on above: Performed By: #### C BC, CMP, 2532-0, 3084-1, 5196-1, 52715-1, 99271-4, 95816-6, 49134-3, 93341-2 #### [facility] ([id number]) [address], [address] [place] [address] MCH (RBC) [Entitic mass] 30.8 pg Normal 27-34 [facility] Comment on above: Performed By: #### C BC, CMP, 2532-0, 3084-1, 5196-1, 86786-0, 05600-4, 63601-2, 26629-0, 92468-2 #### [facility] ([id number]) [address], [address] [place] [address] MCHC (RBC) [Mass/Vol] 34.2 g/dL Normal 32-36 [facility] Comment on above: Performed By: #### C BC, CMP, 2532-0, 3084-1, 5196-1, 27833-6, 69364-1, 05612-5, 94368-0, 83639-9 #### [facility] ([id number]) [address], [address] [place] [address] MCV (RBC) [Entitic vol] 90 fL Normal 80-100 [facility] Comment on above: Performed By: #### C BC, CMP, 2532-0, 3084-1, 5196-1, 65042-1, 07533-9, 98403-6, 90786-5, 01438-2 #### [facility] ([id number]) [address], [address] [place] [address] Platelet mean volume (Bld) [Entitic vol] 10.0 fL Normal 7-12 [facility] Comment on above: Performed By: #### C BC, CMP, 2532-0, 3084-1, 5196-1, 91744-0, 64142-1, 76048-8, 03281-0, 54882-0 #### [facility] ([id number]) [address], [address] [place] [address] Platelets (Bld) [#/Vol] 215 10*3/uL Normal 150-450 [facility] Comment on above: Performed By: #### C BC, CMP, 2532-0, 3084-1, 5196-1, 17029-1, 74066-5, 50162-8, 68840-5, 90802-7 #### [facility] ([id number]) [address], [address] [place] [address] RBC COUNT 4.21 X10E12/L Normal 3.80-5.20 [facility] Comment on above: Performed By: #### C BC, CMP, 2532-0, 3084-1, 5196-1, 56468-7, 68709-7, 46639-0, 29363-1, 56162-7 #### [facility] ([id number]) [address], [address] [place] [address] WBC (Bld) [#/Vol] 10.8 10*3/uL Normal 4.0-11.0 [facility] Comment on above: Performed By: #### C BC, CMP, 2532-0, 3084-1, 5196-1, 48559-6, 03334-0, 86970-4, 80910-4, 44512-8 #### [facility] ([id number]) [address] [place] [address] COMPREHENSIVE METABOLIC PANE Rohit 10-06-2023 Albumin [Mass/Vol] 4.3 g/dL Normal 3.2-5.3 [facility] Comment on above: Performed By: #### C BC, CMP, 2532-0, 3084-1, 5196-1, 73847-2, 18840-6, 58038-1, 34209-7, 14056-9 #### [facility] ([id number]) [address], [address] [place] [address] ALP [Catalytic activity/Vol] 63 U/L Normal 39-130 [facility] Comment on above: Performed By: #### C BC, CMP, 2532-0, 3084-1, 5196-1, 46326-3, 85501-0, 66958-4, 07529-9, 92969-1 #### [facility] ([id number]) [address], [address] [place] [address] ALT [Catalytic activity/Vol] 11 U/L Normal 0-31 [facility] Comment on above: Performed By: #### C BC, CMP, 2532-0, 3084-1, 5196-1, 20653-9, 52969-3, 63479-0, 79099-4, 15884-6 #### [facility] ([id number]) [address], [address] [place] [address] Anion gap [Moles/Vol] 9 mmol/L Normal 5-15 [facility] Comment on above: Performed By: #### C BC, CMP, 2532-0, 3084-1, 5196-1, 41521-9, 08342-8, 66695-2, 33974-8, 24501-8 #### [facility] ([id number]) [address], [address] [place] [address] AST [Catalytic activity/Vol] 20 U/L Normal 0-41 [facility] Comment on above: Performed By: #### C BC, CMP, 2532-0, 3084-1, 5196-1, 50026-4, 63692-9, 02921-3, 83152-0, 10761-7 #### [facility] ([id number]) [address], [address] [place] [address] Bilirubin [Mass/Vol] 0.5 mg/dL Normal 0.3-1.2 [facility] Comment on above: Performed By: #### C BC, CMP, 2532-0, 3084-1, 5196-1, 40115-0, 29269-3, 92185-8, 69925-1, 24543-6 #### [facility] ([id number]) [address], [address] [place] [address] Calcium [Mass/Vol] 9.7 mg/dL Normal 8.5-10.5 [facility] Comment on above: Performed By: #### C BC, CMP, 2532-0, 3084-1, 5196-1, 15290-6, 49246-6, 37120-5, 20222-8, 27607-0 #### [facility] ([id number]) [address], [address] [place] [address] Chloride [Moles/Vol] 101 mmol/L Normal 98-109 [facility] Comment on above: Performed By: #### C BC, CMP, 2532-0, 3084-1, 5196-1, 34131-6, 63253-3, 73542-0, 82639-7, 87796-1 #### [facility] ([id number]) [address], [address] [place] [address] CO2 [Moles/Vol] 27 mmol/L Normal 22-32 [facility] Comment on above: Performed By: #### C BC, CMP, 2532-0, 3084-1, 5196-1, 68769-7, 32299-8, 13962-9, 58658-2, 62513-7 #### [facility] ([id number]) [address], [address] [place] [address] Creatinine [Mass/Vol] 0.66 mg/dL Normal 0.40-1.00 [facility] Comment on above: Result Comment: METH OD TRACEABLE TO IDMS STANDARD Performed By: #### C BC, CMP, 2532-0, 3084-1, 5196-1, 85853-7, 36549-7, 88721-2, 28701-4, 55983-2 #### [facility] ([id number]) [address], [address] [place] [address] eGFR (CKD-EPI) NON-RACE DEPENDENT >90 Normal >59 [facility] Comment on above: Result Comment: Reported eGFR is based on the CKD-EPI 2020 equation that does not use a race coefficient. Performed By: #### C BC, CMP, 2532-0, 3084-1, 5196-1, 17012-6, 41282-8, 98622-5, 23643-3, 06168-2 #### [facility] ([id number]) [address] [place] [address] Glucose [Mass/Vol] 89 mg/dL Normal 65-99 [facility] Comment on above: Performed By: #### C BC, CMP, 2532-0, 3084-1, 5196-1, 19814-3, 84560-2, 22377-7, 21501-7, 29956-8 #### [facility] ([id number]) [address], [address] [place] [address] Potassium [Moles/Vol] 4.3 mmol/L Normal 3.5-5.0 [facility] Comment on above: Performed By: #### C BC, CMP, 2532-0, 3084-1, 5196-1, 16674-9, 11371-4, 41344-3, 27057-6, 27224-4 #### [facility] ([id number]) [address], [address] [place] [address] Protein [Mass/Vol] 7.6 g/dL Normal 6.0-8.0 [facility] Comment on above: Performed By: #### C BC, CMP, 2532-0, 3084-1, 5196-1, 45869-7, 28644-9, 27047-6, 26269-2, 14869-1 #### [facility] ([id number]) [address] [place] [address] Sodium [Moles/Vol] 137 mmol/L Normal 134-146 [facility] Comment on above: Performed By: #### C BC, CMP, 2532-0, 3084-1, 5196-1, 46137-3, 87870-2, 82065-1, 45243-9, 26086-9 #### [facility] ([id number]) [address] [place] [address] Urea nitrogen [Mass/Vol] 8 mg/dL Normal 5-23 [facility] Comment on above: Performed By: #### C BC, CMP, 2532-0, 3084-1, 5196-1, 20309-4, 44253-3, 75042-5, 12589-6, 95794-3 #### [facility] ([id number]) [address] [place] [address] Comprehensive metabolic pane rohit 10-06-2023 Albumin [Mass/Vol] 4.3 g/dL 3.2 - 5.3 g/dL [facility] ALP [Catalytic activity/Vol] 63 U/L 39 - 13 0 U/L [facility] ALT No additional P-5'-P [Catalytic activity/Vol] 11 U/L 0 - 31 U/L [facility] Anion gap [Moles/Vol] 9 mmol/L 5 - 15 mmol/L [facility] AST [Catalytic activity/Vol] 20 U/L 0 - 41 U/L [facility] Bilirubin [Mass/Vol] 0.5 mg/dL 0.3 - 1 .2 mg/dL [facility] Calcium [Mass/Vol] 9.7 mg/dL 8.5 - 10. 5 mg/dL [facility] Chloride [Moles/Vol] 101 mmol/L 98 - 10 9 mmol/L [facility] CO2 [Moles/Vol] 27 mmol/L 22 - 32 mmol/L [facility] Creatinine [Mass/Vol] 0.66 mg/dL 0.40 - 1.00 mg/dL [facility] Comment on above: METHOD TRACEABLE TO ID[facility] STANDARD eGFR (CKD-EPI)non-race dependent - PINF [facility] Comment on above: Reported eGFR is based on the CKD-EPI 2020 equation that does not use a race coefficient. Glucose [Mass/Vol] 89 mg/dL 65 - 99 mg/dL [facility] Potassium [Moles/Vol] 4.3 mmol/L 3.5 - 5.0 mmol/L [facility] Protein [Mass/Vol] 7.6 g/dL 6.0 - 8.0 g/dL [facility] Sodium [Moles/Vol] 137 mmol/L 134 - 146 mmol/L [facility] Urea nitrogen [Mass/Vol] 8 mg/dL 5 - 23 mg/d L [facility] DRUG SCREEN, URINEon 024 AMPHETAMINE/METHAMP Negative Normal NEG [facility] Comment on above: Result Comment: AMPH /METH screening cut off = 1000 ng/mL Performed By: #### C BCA, FEPR, 6-4, 3209-4 #### [facility] ([id number]) [address], [address] [place] [address] BARBITURATES Negative Normal NEG [facility] Comment on above: Result Comment: Pamela iturates screening cut off value = 200 ng/mL Performed By: #### C BCA, FEPR, 6-4, 3209-4 #### [facility] ([id number]) [address], [address] [place] [address] BENZODIAZEPINES Negative Normal NEG [facility] Comment on above: Result Comment: Chip odiazepines screening cut off value = 200 ng/mL Performed By: #### C BCA, FEPR, 2275-4, 3209-4 #### [facility] ([id number]) [address], [address] [place] [address] CANNABINOIDS Positive Abnormal NEG [facility] Comment on above: Result Comment: Conf irmation available upon request. Cannabinoids/THC screening cut off value = 50 ng/mL Performed By: #### C BCA, FEPR, 6-4, 3209-4 #### [facility] ([id number]) [address], [address] [place] [address] COCAINE METABOLITE Negative Normal NEG [facility] Comment on above: Result Comment: Coca ine screening cut off value = 300 ng/mL Performed By: #### C BCA, FEPR, 6-4, 3209-4 #### [facility] ([id number]) [address], [address] [place] [address] ECSTASY Negative Normal NEG [facility] Comment on above: Result Comment: Ecst asy screening cut off value = 500 ng/mL This report is intended for use in clinical monitoring or management of patients. Performed By: #### C BCA, FEPR, 6-4, 3209-4 #### [facility] ([id number]) [address], [address] [place] [address] METHADONE Negative Normal NEG [facility] Comment on above: Result Comment: Meth adone screening cut off value = 300 ng/mL. Performed By: #### C BCA, FEPR, 6-4, 3208-4 #### [facility] ([id number]) [address], [address] [place] [address] [facility] Comment on above: Result Comment: Opia jason screening cut off value = 300 ng/mL NOTE: This test is used for the detection of codeine, hydrocodone (>1000 ng/mL), morphine and hydromorphone (>900 ng/mL) in urine. Performed By: #### C BCA, FEPR, 2275-4, 3208-4 #### [facility] ([id number]) [address], [address] [place] [id number] OXYCODONE Negative Normal NEG [facility] Comment on above: Result Comment: Oxyc odone screening cut off value = 300 ng/mL NOTE: This test is used for the detection of oxycodone and oxymorphone in urine. Performed By: #### C BCA, FEPR, 6-4, 9-4 #### [facility] ([id number]) [address], [address] [place] [address] [facility] Comment on above: Result Comment: Phen cyclidine screening cut off value = 25 ng/mL Performed By: #### C BCA, FEPR, 6-4, 3209-4 #### [facility] ([id number]) [address], [address] [place] [address] Drug Screen, Urineon 024 Amphetamines Screen method >1000 ng/mL Ql (U) Negative Negative^Neg [facility] Comment on above: AMPH/METH screening cut off = 1000 ng/mL Barbiturates Screen Ql (U) Negative N egative^Neg [facility] Comment on above: Barbiturates screeni ng cut off value = 200 ng/mL Benzodiazepines Ql (U) Negative Negat chika^Neg [facility] Comment on above: Benzodiazepines scre ening cut off value = 200 ng/mL Cocaine Ql (U) Negative Negative^Neg [facility] Comment on above: Cocaine screening cu t off value = 300 ng/mL Interpretation and review of laboratory results Abnormal [facility] Methadone Screen Ql (U) Negative Nega tive^Neg [facility] Comment on above: Methadone screening cut off value = 300 ng/mL. Methylenedioxymethamphetamin e Screen Ql (U) Negative Negative^Neg [facility] Comment on above: Ecstasy screening cu t off value = 500 ng/mL This report is intended for use in clinical monitoring or management of patients. Opiates Screen Ql (U) Negative Negati ve^Neg [facility] Comment on above: Opiates screening cu t off value = 300 ng/mL NOTE: This test is used for the detection of codeine, hydrocodone (>1000 ng/mL), morphine and hydromorphone (>900 ng/mL) in urine. oxyCODONE Ql (U) Negative [facility]: Oxycodone screening cut off value = 300 ng/mL NOTE: This test is used for the detection of oxycodone and oxymorphone in urine. Phencyclidine Screen method >25 ng/mL Ql (U) Negative Negative^Neg [facility] Comment on above: Phencyclidine screen ing cut off value = 25 ng/mL Tetrahydrocannabinol Screen method >50 ng/mL Ql (U) Positive Abnormal Negative^Neg [facility] Comment on above: Confirmation availab le upon request. Cannabinoids/THC screening cut off value = 50 ng/mL [facility] Fentanyl, Urine Qualitativeo n 10-06-2023 fentaNYL+Norfentanyl Screen Ql (U) Negative Negative^Neg ative [facility] Comment on above: Fentanyl screening c utoff = 5ng/ml This report is intended for use in clinical monitoring or management of patients. HBV surface Ag IA Qlon 10-05 HEPATITIS B SURF AG Negative Normal NEG [facility] [place] Comment on above: Performed By: #### C BC, CMP, 2532-0, 3084-1, 5196-1, 39662-3, 66826-5, 78454-6, 29799-5, 06005-0 #### [facility] ([id number]) [address], [address] [place] [address] HCV Ab IA Qlon 10-06-2023 ANTI HCV W/PCR REFLX Non-Reactive Normal NRCT Pr [facility] Comment on above: Result Comment: If recent infection suspected, recommend repeat testing (>2 months). Uzvfcc-sp-sxvbba ratio is <0.80. Performed By: #### C BC, [facility], 2532-0, 3084-1, 5196-1, 78029-7, 21112-1, 16854-7, 91998-8, 34321-9 #### [facility] ([id number]) [address] [facility], [address] [place] [address] HIV 1&2 AB/AG Screen (P24 AG )on 10-06-2023 HIV 1+2 Ab+HIV1 p24 Ag IA Ql Non-Reactive Non-Reactive ^Non-Reactiv e [facility] Comment on above: This information has been disclosed to you from confidential records protected from disclosure by state law. You shall make no further disclosure of this information without the specific, written and informed release of the individual to whom it pertains, or as otherwise permitted by state law. A general authorization for the release of medical or other information is not sufficient for the purpose of the release of HIV test results or diagnoses. HIV 1+2 Ab+HIV1 p24 Ag IA Ql on 10-06-2023 HIV 1 and 2 Ab/Ag Screen Non-Reactive Normal NRCT [facility] Comment on above: Result Comment: This information has been disclosed to you from confidential records protected from disclosure by state law. You shall make no further disclosure of this information without the specific, written and informed release of the individual to whom it pertains, or as otherwise permitted by state law. A general authorization for the release of medical or other information is not sufficient for the purpose of the release of HIV test results or diagnoses. Performed By: #### C BCA, FEPR, 2276-4, 3209-4 #### [facility] ([id number]) [address] [place] [address], [place] [address] Hepatitis B surface antigeno n 10-06-2023 HBV surface Ag IA Ql Negative Negativ e^Neg ative [facility] Hepatitis C(HCV) Ab w/ Refle x to PCRon 10-06-2023 HCV Ab IA Ql Non-Reactive Non-Reactive ^Non-Reactiv e [facility] Comment on above: If recent infection suspected, recommend repeat testing (>2 months). Kmnhja-ou-gayhxy ratio is <0.80. LDHon 10-06-2023 LDH [Catalytic activity/Vol] 242 U/L High 100 - 235 U/L [facility] LDH [Catalytic activity/Vol] on 10-06-2023 Interpretation and review of laboratory results Abnormal [facility] LDH 242 U/L High 100-235 [facility] Comment on above: Performed By: #### C BC, CMP, 2532-0, 3084-1, 5196-1, 49348-4, 53797-4, 37766-1, 95323-0, 43655-2 #### [facility] ([id number]) [address] [place] [address], [address] [place] [address] No Panel Informationon 10-[address] [facility] PROTEIN CREAT RATIOon 2023 RANDOM URINE PROTEIN 120 mg/L High <120 [facility] Comment on above: Performed By: #### C BCA, FEPR, 2276-4, 3209-4 #### [facility] ([id number]) [address], [address] [address] U/PRO/STEAM BOX HAND RATIO CALC 0.06 Normal <0.2 [facility] Comment on above: Result Comment: Neph rotic Syndrome is associated with ratios >3.5 Performed By: #### C BCA, FEPR, 2276-4, 3209-4 #### [facility] ([id number]) [address], [address] [address] URINE CREATININE,RDM 185.32 mg/dL Normal Pr [facility] Comment on above: Performed By: #### C BCA, FEPR, 2276-4, 3209-4 #### [facility] ([id number]) [address], [address] [address] Rubella IGG immune statuson 10-06-2023 Rubella virus Ab Ql (S) 2.4 AI P [facility] Comment on above: Interpretation-------- <0.8 NEGATIVE-considered Not Immune 0.8-0.9 EQUIVOCAL-consider retesting with new specimen >0.9 POSITIVE-considered Immune Rubella virus Ab Ql (S)on RUBELLA IMMUNE IgG 2.4 AI Normal [facility] Comment on above: Result Comment: Interpretation-------- <0.8 NEGATIVE-considered Not Immune 0.8-0.9 EQUIVOCAL-consider retesting with new specimen >0.9 POSITIVE-considered Immune Performed By: #### C PRERNA, FEPR, 2276-4, 3209-4 #### [facility] ([id number]) [address], [address] [place] [address] Syphilis Total(Unknown Syphi lis Status)on 10-06-2023 T. pallidum IgG+IgM IA Ql (S) 0.3 [facility] Comment on above: NON REACTIVE No serologic evidence of infection to Treponema pallidum (syphilis). Repeat testing may be considered in patients with suspected acute or primary syphilis in 2 to 4 weeks. T. pallidum IgG+IgM IA Ql (S )on 10-06-2023 [facility] Syphilis Total 0.3 AI Normal 0.0-0.8 [facility] Comment on above: Result Comment: NON REACTIVE No serologic evidence of infection to Treponema pallidum (syphilis). Repeat testing may be considered in patients with suspected acute or primary syphilis in 2 to 4 weeks. Performed By: #### C PRERNA, FEPR, 6-4, 4469-4 #### [facility] ([id number]) [address] [place] [address], [address] [place] [address] Type and screenon 10-06-2023 ABO B [facility] Rh Nom (Bld) Positive [facility] URIC ACIDon 10-06-2023 Urate [Mass/Vol] 3.2 mg/dL Normal 2.6-7.2 [facility] Comment on above: Performed By: #### C BC, CMP, 2532-0, 3084-1, 5196-1, 73071-9, 45887-9, 23016-7, 77903-4, 27844-3 #### [facility] ([id number]) [address] [place] [address], [address] [place] [address] URINALYSISon 10-06-2023 Bilirubin Ql (U) Negative Normal NEG [facility] Comment on above: Performed By: #### C BCA, FEPR, 2276-4, 3209-4 #### [facility] ([id number]) [address], [address] [place] [address] BLOOD/HGB Negative Normal NEG [facility] Comment on above: Performed By: #### C BCA, FEPR, 2276-4, 3209-4 #### [facility] ([id number]) [address], [address] [place] [address] Color (U) YELLOW Normal YELLOW [facility] Comment on above: Performed By: #### C BCA, FEPR, 2276-4, 3209-4 #### [facility] ([id number]) [address], [address] [place] [address] Glucose Ql (U) Negative Normal NEG [facility] Comment on above: Performed By: #### C BCA, FEPR, 2276-4, 3209-4 #### [facility] ([id number]) [address], [address] [place] [address] Ketones Ql (U) Negative Normal NEG [facility] Comment on above: Performed By: #### C BCA, FEPR, 2276-4, 3209-4 #### [facility] ([id number]) [address], [address] [place] [address] Leukocyte esterase Test stri p Ql (U) Negative Normal NEG [facility] Comment on above: Performed By: #### C BCA, FEPR, 2276-4, 3209-4 #### [facility] ([id number]) [address], [address] [place] [address] MUCOUS PRESENT Abnormal NONE [facility] Comment on above: Performed By: #### C BCA, FEPR, 2276-4, 3209-4 #### [facility] ([id number]) [address], [address] [place] [address] Nitrite Ql (U) Negative Normal NEG [facility] Comment on above: Performed By: #### C BCA, FEPR, 6-4, 3209-4 #### [facility] ([id number]) [address], [address] [place] [address] pH (U) 7.0 [pH] Normal 5.0-8.5 [facility] Comment on above: Performed By: #### C BCA, FEPR, 6-4, 3209-4 #### [facility] ([id number]) [address], [address] [place] [address] Protein Ql (U) Trace Abnormal NEG [facility] Comment on above: Performed By: #### C BCA, FEPR, 6-4, 3209-4 #### [facility] ([id number]) [address], [address] [place] [address] R.B.CELLS <1 Normal 0-5 [facility] Comment on above: Performed By: #### C BCA, FEPR, 2275-4, 3209-4 #### [facility] ([id number]) [address], [address] [place] [address] Specific gravity (U) [Rel density] 1.025 Normal 1.003-1.035 [facility] Comment on above: Performed By: #### C BCA, FEPR, 6-4, 9-4 #### [facility] ([id number]) [address], [address] [place] [address] SQUAMOUS EPITHELIUM <1 Normal 0-5 [facility] Comment on above: Performed By: #### C BCA, FEPR, 2276-4, 3209-4 #### [facility] ([id number]) [address], [address] [place] [address] TURBIDITY CLEAR Normal CLEAR [facility] Comment on above: Performed By: #### C BCA, FEPR, 6-4, 3209-4 #### [facility] ([id number]) [address], [address] [place] [address] Urobilinogen (U) [Mass/Vol] mg/dL Normal <1.1 [facility] Comment on above: Performed By: #### Sheron GRAFF, FEPR, 6-4, 3209-4 #### [facility] ([id number]) [address], [address] [place] [address] W.B.CELLS <1 Normal 0-5 [facility] Comment on above: Performed By: #### Sheron GRAFF, FEPR, 6-4, 3209-4 #### [facility] ([id number]) [address], [address] [place] [address] URINE CULTUREon 10-06-2023 Bacteria identified Cx Nom (U) CULTURE RESULTS 10-50,000 ORGANISMS/mL NORMAL UROGENITAL EBONI Normal [facility] Comment on above: Performed By: #### Sheron GRAFF, FEPR, 6-4, 3209-4 #### [facility] ([id number]) [address], [address] [place] [address] Uric acidon 10-06-2023 Urate [Mass/Vol] 3.2 mg/dL 2.6 - 7.2 mg/dL [facility] Urinalysison 10-06-2023 Bilirubin Ql (U) Negative Negative^Ne g ative [facility] Color (U) YELLOW YELLOW^YELLO W [facility] Epithelial cells Auto (Urine sed) [#/Area] [facility] Glucose (U) [Mass/Vol] Negative Negat chika^Neg ative mg/dL [facility] Hemoglobin Auto test strip Q l (U) Negative Negative^Neg ative [facility] Interpretation and review of laboratory results Abnormal [facility] Ketones (U) [Mass/Vol] Negative Negat chika^Neg ative mg/dL [facility] Leukocyte esterase Auto test strip Ql (U) Negative Negative^Neg ative [facility] Mucus Ql (Urine sed) PRESENT Abnormal NONE^NONE [facility] Nitrite Auto test strip Ql (U) Negative Negative^Neg ative [facility] pH (U) 7.0 [pH] 5.0 - 8.5 [facility] Protein (U) [Mass/Vol] Trace Abnormal Negat chika^Neg ative mg/dL [facility] RBC Auto (Urine sed) [#/Area] [facility] Specific gravity Refractometry automated (U) [Rel density] 1.025 1.003 - 1.035 [facility] Turbidity Ql (U) CLEAR CLEAR^CLEAR [facility] Urobilinogen Qn (U) NINF [facility] WBC Auto (Urine sed) [#/Area] [facility] Urine protein creatinine rat ioon 10-06-2023 Creatinine (U) [Mass/Vol] 185.32 mg/dL [facility] Interpretation and review of laboratory results Abnormal [facility] Protein (U) [Mass/Vol] 120 mg/L High [facility] - 120 mg/L [facility] Protein/Creatinine (U) [Ratio] 0.06 [facility] - 0.2 [facility] Comment on above: Nephrotic Syndrome i s associated with ratios >3.5 [facility] VZV IgG IA Ql (S)on 10-06-19 Interpretation and review of laboratory results Abnormal [facility] VARICELLA IgG 6.2 AI High <0.9 [facility] Comment on above: Result Comment: Interpretation-------- <0.9 Negative 0.9 - 1.0 Equivocal >1.0 Positive Performed By: #### C BCA, FEPR, 2276-4, 3209-4 #### [facility] ([id number]) [address] [place] [address], [address] [place] [address] Varicella zoster antibody, I gGon 10-06-2023 VZV IgG IA Ql (S) 6.2 High NINF [facility] Comment on above: Interpretation-------- <0.9 Negative 0.9 - 1.0 Equivocal >1.0 Positive fentaNYL+Norfentanyl Screen Ql (U)on 10-06-2023 [facility] FENTANYL, URINE QUAL. Negative Normal NEG [facility] Comment on above: Result Comment: Fent anyl screening cutoff = 5ng/ml This report is intended for use in clinical monitoring or management of patients. Performed By: #### C NIKUNJ GRAFF, 2275-, 3208-4 #### [facility] ([id number]) [address], [address] [place] [address] CBC AND AUTO DIFFon 09-26-19 24 ABSOLUTE BASOPHIL 0.0 X10E9/L Normal 0.0-0.2 [facility] Comment on above: Performed By: #### NIKUNJ Holbrook BCA, 2275-10, 3208-4 #### [facility] ([id number]) [address], [address] [place] [address] ABSOLUTE NEUTROPHIL 6.2 X10E9/L Normal 1.5-6.6 [facility] Comment on above: Performed By: #### Sheron GRAFF FEPMaryanne, 2275-, 3208-4 #### [facility] ([id number]) [address], [facility] [address] [place] [address] Basophils/100 WBC (Bld) 0.6 % Normal P [facility] Comment on above: Performed By: #### Sheron GRAFF, FEPR, 2275-10, 9-4 #### [facility] ([id number]) [address], [address] [place] [address] Eosinophils (Bld) [#/Vol] 0.1 10*3/uL Normal 0.0-0.4 [facility] Comment on above: Performed By: #### C BCA, FEPR, 2275-4, 3208-4 #### [facility] ([id number]) [address], [address] [place] [address] Eosinophils/100 WBC (Bld) 0.9 % Normal [facility] Comment on above: Performed By: #### C BCA, FEPR, 2275-4, 3208-4 #### [facility] ([id number]) [address], [facility] [address] [place] [address] Erythrocyte distribution width (RBC) [Ratio] 13.3 % Normal 11.5-15.0 [facility] Comment on above: Performed By: #### C BCA, FEPR, 2275-, 3208-4 #### [facility] ([id number]) [address], [address] [place] [address] Hematocrit (Bld) [Volume fraction] 36.3 % Normal 35-47 [facility] Comment on above: Performed By: #### C BCA, FEPR, 2275-, 3208-4 #### [facility] ([id number]) [address], [facility] [address] [place] [address] Hemoglobin (Bld) [Mass/Vol] 12.4 g/dL Normal 11.7-15. 5 [facility] Comment on above: Performed By: #### C BCA, FEPR, 2275-4, 9-4 #### [facility] ([id number]) [address], [facility] [address] [place] [address] Lymphocytes (Bld) [#/Vol] 2.0 10*3/uL Normal 1.0-3.5 [facility] Comment on above: Performed By: #### C BCA, FEPR, 6-4, 9-4 #### [facility] ([id number]) [address], [address] [place] [address] Lymphocytes/100 WBC (Bld) 22.2 % Normal [facility] Comment on above: Performed By: #### C BCA, FEPR, 6-4, 3209-4 #### [facility] ([id number]) [address], [address] [place] [address] MCH (RBC) [Entitic mass] 31.0 pg Normal 27-34 [facility] Comment on above: Performed By: #### C BCA, FEPR, 6-4, 3209-4 #### [facility] ([id number]) [address], [address] [place] [address] MCHC (RBC) [Mass/Vol] 34.0 g/dL Normal 32-36 [facility] Comment on above: Performed By: #### C BCA, FEPR, 2275-4, 3208-4 #### [facility] ([id number]) [address], [address] [place] [address] MCV (RBC) [Entitic vol] 91 fL Normal 80-100 P [facility] Comment on above: Performed By: #### C BCA, FEPR, 2275-4, 9-4 #### [facility] ([id number]) [address], [address] [place] [address] Monocytes (Bld) [#/Vol] 0.5 10*3/uL Normal 0-0.9 [facility] Comment on above: Performed By: #### C BCA, FEPR, 6-4, 3209-4 #### [facility] ([id number]) [address], [address] [place] [address] Monocytes/100 WBC (Bld) 5.4 % Normal P [facility] Comment on above: Performed By: #### C BCA, FEPR, 6-4, 3209-4 #### [facility] ([id number]) [address] [address] [place] [address] Neutrophils/100 WBC (Bld) 70.9 % Normal [facility] Comment on above: Performed By: #### Sheron BCA, FEPR, 6-4, 3209-4 #### [facility] ([id number]) [address] [address] [place] [address] Platelet mean volume (Bld) [Entitic vol] 9.0 fL Normal 7-12 [facility] Comment on above: Performed By: #### Sheron GRAFF, FEPR, 6-4, 3209-4 #### [facility] ([id number]) [address] [address] Platelets (Bld) [#/Vol] 230 10*3/uL Normal 150-450 [facility] Comment on above: Performed By: #### Sheron GRAFF, FEPR, 6-4, 9-4 #### [facility] ([id number]) [address] [address] [place] [address] RBC COUNT 3.99 X10E12/L Normal 3.80-5.20 [facility] Comment on above: Performed By: #### Sheron BCA, FEPR, 6-4, 9-4 #### [facility] ([id number]) [address] [address] WBC (Bld) [#/Vol] 8.8 10*3/uL Normal 4.0-11.0 [facility] Comment on above: Performed By: #### Sheron GRAFF, FEPR, 6-4, 3209-4 #### [facility] ([id number]) [address] [address] [place] [address] CBC auto differentialon 09-14 Basophils (Bld) [#/Vol] 0.0 10*3/uL [facility] Basophils/100 W[facility] (Bld) 0.6 % [facility] Eosinophils (Bld) [#/Vol] 0.1 10*3/uL [facility] Eosinophils/100 WBC (Bld) 0.9 % [facility] Erythrocyte distribution width (RBC) [Ratio] 13.3 % 11.5 - 15.0 % [facility] Hematocrit (Bld) [Volume fraction] 36.3 % 35 - 47 % [facility] Hemoglobin (Bld) [Mass/Vol] 12.4 g/dL 11.7 - 15.5 g/dL [facility] Lymphocytes (Bld) [#/Vol] 2.0 10*3/uL [facility] Lymphocytes/100 WBC (Bld) 22.2 % [facility] MCH (RBC) [Entitic mass] 31.0 pg 27 - 34 pg [facility] MCHC (RBC) [Mass/Vol] 34.0 g/dL 32 - 36 g/dL P [facility] MCV (RBC) [Entitic vol] 91 fL 80 - 100 fL [facility] Monocytes (Bld) [#/Vol] 0.5 10*3/uL [facility] Monocytes/100 WBC (Bld) 5.4 % [facility] Neutrophils (Bld) [#/Vol] 6.2 10*3/uL [facility] Neutrophils/100 WBC (Bld) 70.9 % [facility] Platelet mean volume (Bld) [Entitic vol] 9.0 fL 7 - [address] [facility] Platelets (Bld) [#/Vol] 230 10*3/uL [facility] RBC (Bld) [#/Vol] 3.99 10*6/uL [facility] WBC corrected for nucl RBC Auto (Bld) [#/Vol] 8.8 [facility] Coagulation factor VIII acti vity actual/normal Coag (PPP) [Relative time]on 09-26-2023 FACTOR 8 ASSAY 35 % act Low 50-150 [facility] Comment on above: Performed By: #### C BCA, FEPR, 2276-4, 3209-4 #### [facility] ([id number]) [address], [address] [place] [address] FERRITINon 09-26-2023 Ferritin [Mass/Vol] 16 ng/mL Normal 11-307 [facility] Comment on above: Performed By: #### C BCA, FEPR, 2276-4, 3209-4 #### [facility] ([id number]) [address], [address] [place] [address] Ferritinon 09-26-2023 Ferritin [Mass/Vol] 16 ng/mL 11 - 307 ng/mL [facility] Ferritin [Mass/Vol]on [address] [facility] IRON PROFILEon 09-26-2023 Iron [Mass/Vol] 129 ug/dL Normal 50-170 [facility] Comment on above: Performed By: #### C BCA, FEPR, 2276-4, 3209-4 #### [facility] ([id number]) [address] [facility] [facility], [address] [place] [address] IRON BINDING 318 ug/dL Normal 250-425 [facility] Comment on above: Performed By: #### C BCA, FEPR, 2276-4, 3209-4 #### [facility] ([id number]) [address] [facility], [address] [place] [address] IRON SATURATION 41 % SATURATION Normal 15-50 [facility] Comment on above: Performed By: #### C BCA, FEPR, 2276-4, 3209-4 #### [facility] ([id number]) [address], [address] [place] [address] Iron and TIBCon 09-26-2023 Iron [Mass/Vol] 129 ug/dL 50 - 170 ug/dL [facility] Iron binding capacity [Mass/Vol] 318 ug/dL 250 - 425 ug/dL [facility] Iron saturation [Mass fraction] 41 [facility] Telephone Encounteron 2023 Twister Hand Authentication Interface Message Text Situation: Caller is 7 weeks and 3 days and lives in [place] and is taking Suboxone and is asking about MH Substance Program. Caller states they are referring her there from her doctor in [place]. Was just going to update her phone number and address and the phone disconnected. Background: N/A Assessment: N/A Recommendation: Did speak with Sendy on L AND [facility] and she states pt would be a candidate for this program, but she would need to speak with L AND D doctor aviation consultant. Did try to call pt back and left message on her voice mail to call [facility] Nurse Advice Line back at # [phone] for further assistance. Did try a second time to reach caller and she did answer the phone, and did update her phone number and address, and discussed what Sendy said in L AND [facility], transferred caller there to talk with an [employer] doctor aviation consultant. No further questions. Vivian Mcgrath, RN, RN Normal [facility] Coding Summaryon 03-04-2023 Coding Summary HTMLBase 64 HyxodyybGUa5eHj+P GhlYWQ+LJ6OEWIiT8 6gvDGfhL2uJ0WVNJw OSywgQVBQTElOSyIg avIkEN9ifLRkCHBs IC8+NE0bYPZdAjcvz LQxw2G6aSK0S82xjd 8iAJaelFM0RBSzXkF ecsais2mylEe3DUfg NmluOyBt VMOlpH57DLS8xJ33Q p05fIUnpEUiy4cteI l1HwLkOSJcLFI8rAq jLKsxe2LiSZKcG64m vYEkr6P6 IGNvbGxhcHNlOyBlb VV6sU3cZKieuitqa4 txjfmbUyr9hc88vCB gu6K0rXZ8B4EtvqP1 IGJvbGQg ZtgfeHMItS8cpshet 2xvcjogIzAwMDAwMD g3YFf8AJPcfZgcIhW iWN70JWU0RCYswsWp L6ElRFDy oUnyPcR4g3P2Nh1WS 4XCIjtvX9MSCCVPLS wvdGQ+FM29bj45H7Y fKfyqWqe9VOJtTFS8 xKG2dA4e XSGmZTdyn4N4eRF7U 4SzfnStrc5cn4dbJJ VjRGxtC59vhBDac2U 3EZBoaJQ5XASecQew LrKmbM31 Oyc+ZNTnlZzob6KsT szzp5rav6ajcLe2Sp gwJSIgdmFsaWduPSJ 7d9GfZl4hULNcsWN2 rPH3nM1z QdTbBiY0RTvcQ804Y yCbvXNhBwpxY12xL4 JvdXA+FEKkJev7FWE fhBwhUL2mX0YrAVSd bmctbGVm uSldPW3sWZRcgspoL QEtgK2kTQZaT6j2Ch AoOvV5UUynA4HlNEF uegslFf13qD9gPwTb WjL3ISfo S3HuypL5OGYgnXMqJ VkmBJO4U49kk7J8OU KbGBMqPCE2dIU5bD2 hbGlnbjogbGVmdDsg dmVydGlj UPvcHAryK952UJCkb DsnPkNvZGluZyBEYX RlOiAgMDgvMTkvMjA yMzwvdGQ+PHRkIHN0 eWxlPSAn sNXzDGxuKy2lbBrcj BgfDM7tHVZjsejqIB BnoJ8yDZUurACtyCz nEU7bMUDiexhgf724 OiAxMHB0 WTNasZKfI0HanV1vE lHbDWKwVROdO6GhfC ZfKVssP404HRehGdQ 2FQZthlGqG3KaLSUs aWduOiB0 n7N1Er1Cx0LzifriG 3RhdHVzOiAgRmluYW q8Y2CqAnzmpOD+PC9 6SWAiAA24VCh6QGM8 eWxlPSdi MRJeS0GaqE3cGfDaT GRkZGRkOyc+PHRhYm xlIHdpZHRoPScxMDA uCtXkvEjsMQ2zAd6b ZGVyLWNv hYqkwAKjOsUog8xqA SPcTYhdLJ0rwSuqM8 TywRI9HRGbk0v7Zq2 7B06aC9QuaIM+PGNv cRC3wIS6 yA0tGfLjUsD9MVgsH 233TpUugJPgIhbwy4 soj3kgmVr3VsT5SFN iisTuvEbbUUV4b0Zk Na10X54l IHdpZHRoPSIxNSUiI UYsfThcho5nxY8hRr 8+WQTosOP6oZU0hF6 yLdKzVrG1VSovI911 InRvcCIv Yuamv6luj7chwRg8U jIwJSIgdmFsaWduPS H4p8PuSz50T3VegVb yn1JqVez6qq56dUMu i2F9hES1 T1GdGYPjprrvpYKvc HhkWV1aLYVcbtxkLE IhlR4xISTvC1a7ZgM tKzX1GIahB3ApwiL8 IGJvbGQg XLNzaYUNhE7rhucri 2xvcjogIzAwMDAwMD b1PNw8QZHsvTvuTuQ fFDT9JlO5KDQ3nZYo qV9luLua rcxtkS4lTls+UGF0a HIolSAIOV3iPdwruD Q+LILzQUU4yGetTQv lJYFgrE7lNSZcH7z3 OiAwLjA1 HJmgX4VzthZ0ZDKzr ZWiMREtmDDAjB2ycx hbb4serfebKoXmFIX nFNw6AQa9HOGagAhc OiBsZWZ0 DtC9CAX9xZBbvE3to TkdlauhkZ0zVnu+Qm rxdYpdFJF8WRu9E8C kTlf2UGFohOrcAP2t cGFkZGlu Dg0eeOxtoMrfXQ3dW IVwxuijo422AzBqw7 xkIDEwcHQgVGltZXM 8L91zo7Z6GEPtRFMe FAU8rFG7 uM0emJhnlhuxuCCnv DsgdmVydGljYWwtYW ntS688CLAvjIshMpD gYUq0D8SyWug7YYDo kFxcOK9d sFFkBMgzQg5oyVruj JjeCU0oUNMqaigzj8 89XmIex2maFRJohDE dLAxiUMI0J34zy0U5 ICMwMDAw QAI4uZG1yI1raMmaq jogbGVmdDsgdmVydG vrUSxdJJlgI199BNG ajZvbElCbsFd3Q3Yc Lru2RMIn dSafKA2qmSEbRFlrN h6xvBkdnUlkOY1fXN Sbqcnib849VtCqu8a kIDEwcHQgVGltZXM7 Z54sb4B3 ILCxBZQwRZF7eSL0h Y2jjWraqvnhvMEmfT sgdmVydGljYWwtYWx dX163QKAykFraYfFz dGllbnQg ZGpsRQq8J0NnCwztd HI+XZ61YCEfGL44xJ AltSMgs6ytoTb8MnP sMKJpVEL2aQbgQDqq z5MoNWRy G17tuHXvx3Z5WKZgk CmyrJJrBfBmkOG8eG 9wGRdancmxj4hyaut fFmlks6qvrw85mX31 J89sYMqo ZHRoPSIzMCUiIHZhb Epuke5jxV4rYb8+PG BliHG9hHC8yR9jHMX dRnT4UFztP700CyJx cCIvPjxj a1hhc8zhfIx6WhP9G SRcbjByxCsuHSC9z6 KeOl57Q24cWImzETM oPSIyMCUiIHZhbGln ls7qzW1g Ii8+RNDosJZ7qFG2c A7wLvCvGtF2ADxrW2 97IaPqwGDoGxzgQ64 fR5MgkMO+PHRyPjx0 ZCBzdHls GB7viPXxGXuzAh4hS EZ3OeDcEgQbBLzvF9 BhZGRpbmctcmlnaHQ 2AYKnSOUpfS52Hm5t dDogMTBw yVKBrU3wzmxyq3adb izuInNzEZSfSZs0VF d3CKPiiNmyZlUmQOP 5RdD1RPR3tPUilQ4v bGlnbjog uA6mA2DcGDQaatsdU k57bY3nBiMkZiN6AM luOyc+THwBZ1lXGjb cZ5ABX6AASTRGKtK4 Z3LyDhw2 EDDqcDoqBU6hcNDzR RymWu5avDyitFplND 1lTLFmuvktEHVowJ2 bGJHmfHGroNwuIC1l NTBpbjtm p601JlVeHKE2FCWdk SMsY4YuhQ8eXtZsVD KkMPUqU5NobDJtEJm uL039JDjeBgU0QOTw heBgJ7Wa JFWtlUmyNdI1x6K6Y u9tVy1sNq0fACjoDA 69IE67lBYgc8N5aDB 4V2BlZSMsawwlmjzq yWK6RRRg MEEclM46lBNvLMtzO c3wq3Q6n035JIIzUV AflV09Xf5gnLtySIK asBYMqT8yhpatc1uz cjogIzAw BWGwZLn4QDv5OGSfd JcgOuUcKQB9ReH0XM C2sDOwdL3xzRspvcu czK2oEux+MzEgWWVh izG2F0Jc Cxl1FLKsmUgmXX1rr PWdFHrsKp9plKhqdK uyAZ7iPZBqwastMUD baK6wQAFuaWNamYaj UJ3bZWGj yeixw137CjFeYPK3V SGivCWoY5QmaR5oKd VhGGPlPDKsI3CnaSV dOYseN104AZrxWoK3 IHZlcnRp H1QiJCPrsAcuNgI0s 8I2Pe2EBP3GULG7I2 IgAsd9MKAjwGxvBP8 bzHBmBEogTt7nfDcm tQwpDK1m KUGqnphlMGEbfI7yI FCtqBDjvEodVH8pUQ Bhearsr114LlSqYZA 2VNSceVHyX3MziK4m OiAjMDAw OVBvC5ZdeRPyRHmkU 433TTlgArE3YELrhc LvH5KlVGAypVgtMcR 0u6B5Ti5RSJayyCQ+ IB14kr60 T7OaIgvaEdt9KLCmH OF6dMI6eA5nIBXdYY zyj2J4kER2P3CthoL mcx1qj7hlNNKtCAmi E30yzRNw w8O5MJLloWF2HEQrr AwaPyAsnF35Mfb+PG VicZwey9FuRkeob5p uo4ikfUy7VqGsOLTx dmFsaWdu XBO1g2ApXz25J04wR HdpZHRoPSIzMCUiIH RdhTvtai9icT3aLg0 +FWGtfTZ1nKS3aK2g MjAlIiB2 NZneC040EvChmVCnJ ruwq2hev5abjVo4Qq IwJSIgdmFsaWduPSJ 1d8PiJc66M3RauQhu d2YuRri0 of99fQQap3F7gGH4M 3BhZGRpbmctbGVmdD ubRE2mYJTixqnvOBH zaW0zXEJxF4y9JcJs PkH2DAdh K4ScroT8AAWadPLsX ECyjSHWjB8wuyvga1 xvcjogIzAwMDAwMDt 1TAh7PMBebBnhIrIo AHD3NvM8 LNM1zZZchT6ivOthv frwrG0xZzv+UGh5c2 yrrXCcTO7bjPN6GY0 1ZS64qVOes7C5oBG7 I6DyLJUa srhtfmgjeAS8UCPcB BEshF00Hf8jxSuwPe 0mUMYlMPN9ZEVuvXK cX0HtyK2aWdUjRBQe HSBiO7Oh mYSkXHheY207KXqnH mP0IDLakdHeF4OtLL MmyGgkXhJ5r8U6Hr4 AKZ92LO27BJ52aDZu j9I1tNX2 R3ThABTzjkgnykpjs IE6HSBzBPQmmF37Nu 8koAwjCt4dSWHlJPG 1QHRfnOPeT5EtxL0c OiAjMDAw OJLxJ8UvhIAeQEypH 403LNwsDvA9PCZvuw HgQ4TtWOBexYvuUkP 6t7N7Na6VXj26JN68 UM64hKEl a9P8kOP2S7BaSSYyh hgadrqzjGW3QIQkJZ OxuN96Jp4exQzsZs9 eRNUfFSB1ELBmyCJx B6JqwM5z BqDjACTiNWOcY3Xng EImWDifN495RUdrWo M8DQQvrxUpD0KnRUL viMugOjB5b0S7Fq1A YXllcjo8 N4UdSaqbeDM+PC90Y MEqUQ08eRLbbREnu0 bvkMz7CcMvRAVmMMV 7sEfdVUdod7YnHBDd D41pcBYq c2U (more content not included)... Normal [facility] ED Clinical Summaryon [address] [facility] ? Urgent Care [address] [place], [place] [id number] Clinical Summary PERSON INFORMATION Name: NAHOMY GALVAN Age: 33 Years Sex: FEMALE : 1990 MRN: Acct#: Visit Reason: Dental pain; DENTAL PAIN Arrival: 02/23/2023 13:01:25 Discharge: 02/23/2023 13:33:00 LOS: 000 00:32 Check In: 02/23/2023 13:01:25 Checkout: 02/23/2023 13:33:00 Address: [address] [place] [address] PCP: Provider, None PROVIDER INFORMATION Provider Role Assigned Unassigned Benjie Xavier ED PA 02/23/2023 13:03:00 Kandy Louis CSO Nurse 02/23/2023 13:18:45 VITALS INFORMATION Vital Sign Triage Latest Temperature Tympanic Temperature Temporal Artery Pulse Rate O2 Sat 96 % 96 % Respiratory Rate Blood Pressure /70 mmHg /70 mmHg MEDICAL INFORMATION Medications Given: Allergy Information: Ceclor PHYSICIAN DOCUMENTATION DISCHARGE INFORMATION: Discharge Disposition: Home Discharge Location: Home PATIENT EDUCATION INFORMATION Instructions: Dental Abscess Follow-Up: With: Address: When: [facility] Within 3 to 5 days Comments: Diagnosis is dental infection. From evaluation you have pain and swelling in the localized area of your mouth. We are starting you on antibiotics take these as prescribed. Also providing medication the form of antibiotic rinse, use as prescribed. May take Tylenol ibuprofen to help with pain relief, do not take more than 4000 mg of Tylenol in 24. Follow-up with your own dentist, or I gave you multiple dental options with information pamphlets, in the next 3-5 days for evaluation. Follow-up with [facility] dental clinic,[phone], You may also follow-up with [facility] . From Adult Dental emergency, Call Return to emergency department/urgent care for worsening symptoms or concerns, spiking high fevers, redness going up or down the side your face, swollen eyes, any questions. With: Address: When: None Provider [address] [place] [address] DIAGNOSIS: 1:Dental abscess Patient Understands: Yes - Patient/family/ca regiver verbalizes understanding of instructions given Comment: Normal [facility] ED Patient Summaryon [address] [facility] ? Urgent Care [address] [place] [address] PATIENT DISCHARGE INSTRUCTIONS Patient Information Name: NAHOMY GALVAN Age: 33 Years Date of : 1990 Reason For Visit: Dental pain; DENTAL PAIN Arrival Time: 02/23/2023 13:01:25 Primary Care Physician: Provider, None Attending Physician: Benjie Xavier Comment: Patient Education With: Address: When: [facility] Within 3 to 5 days Comments: Diagnosis is dental infection. From evaluation you have pain and swelling in the localized area of your mouth. We are starting you on antibiotics take these as prescribed. Also providing medication the form of antibiotic rinse, use as prescribed. May take Tylenol ibuprofen to help with pain relief, do not take more than 4000 mg of Tylenol in 24. Follow-up with your own dentist, or I gave you multiple dental options with information pamphlets, in the next 3-5 days for evaluation. Follow-up with [facility] dental clinic,[phone], You may also follow-up with [facility] . From Adult Dental emergency, Call Return to emergency department/urgent care for worsening symptoms or concerns, spiking high fevers, redness going up or down the side your face, swollen eyes, any questions. With: Address: When: None Provider [address] [place] [address] Dental Abscess A dental abscess is an infection around a tooth that may involve pain, swelling, and a collection of pus, as well as other symptoms. Treatment is important to help with symptoms and to prevent the infection from spreading. The general types of dental abscesses are: ? Pulpal abscess. This abscess may form from the inner part of the tooth (pulp). ? Periodontal abscess. This abscess may form from the gum. What are the causes? This condition is caused by a bacterial infection in or around the tooth. It may result from: ? Severe tooth decay (cavities). ? Trauma to the tooth, such as a broken or chipped tooth. What increases the risk? This condition is more likely to develop in males. It is also more likely to develop in people who: ? Have cavities. ? Have severe gum disease. ? Eat sugary snacks between meals. ? Use tobacco products. ? Have diabetes. ? Have a weakened disease-fighting system (immune system). ? Do not brush and care for their teeth regularly. What are the signs or symptoms? Mild symptoms of this condition include: ? Tenderness. ? Bad breath. ? Fever. ? A bitter taste in the mouth. ? Pain in and around the infected tooth. Moderate symptoms of this condition include: ? Swollen neck glands. ? Chills. ? Pus drainage. ? Swelling and redness around the infected tooth, in the mouth, or in the face. ? Severe pain in and around the infected tooth. Severe symptoms of this condition include: ? Difficulty swallowing. ? Difficulty opening the mouth. ? Nausea. ? Vomiting. How is this diagnosed? This condition is diagnosed based on: ? Your symptoms and your medical and dental history. ? An examination of the infected tooth. During the exam, your dental care provider may tap on the infected tooth. You may also need to have X-rays taken of the affected area. How is this treated? This condition is treated by getting rid of the infection. This may be done with: ? Antibiotic medicines. These may be used in certain situations. ? Antibacterial mouth rinse. ? Incision and drainage. This procedure is done by making an incision in the abscess to drain out the pus. Removing pus is the first priority in treating an abscess. ? A root canal. This may be performed to save the tooth. Your dental care provider accesses the visible part of your tooth (crown) with a drill and removes any infected pulp. Then the space is filled and sealed off. ? Tooth extraction. The tooth is pulled out if it cannot be saved by other treatment. You may also receive treatment for pain, such as: ? Acetaminophen or NSAIDs. ? Gels that contain a numbing medicine. ? An injection to block the pain near your nerve. Follow these instructions at home: Medicines ? Take isyh-tup-prkzogk and prescription medicines only as told by your dental care provider. ? If you were prescribed an antibiotic, take it as told by your dental care provider. Do not stop taking the antibiotic even if you start to feel better. ? If you were prescribed a gel that contains a numbing medicine, use it exactly as told in the directions. Do not use these gels for children who are younger than 2 years of age. ? Use an antibacterial mouth rinse as told by your dental care provider. General instructions ? Gargle with a mixture of salt and water 3?4 times a day or as needed. To make salt water, completely dissolve ??1 tsp (3?6 g) of salt in 1 cup (237 mL (more content not included)... Normal [facility] [address] [facility] ? Urgent Care [address] [place] [address] PATIENT DISCHARGE INSTRUCTIONS Patient Information Name: NAHOMY GALVAN Age: 33 Years Date of : 1990 Reason For Visit: Dental pain; DENTAL PAIN Arrival Time: 02/23/2023 13:01:25 Primary Care Physician: Provider, None Attending Physician: Benjie Xavier Comment: Visit Diagnosis: Diagnoses This Visit Dental abscess (K04.7) Dental pain ([id number]) If you received any narcotics, sedation, or any other medication that causes drowsiness for the next 24 hours, unless otherwise directed: ? Do not drive a car. ? Do not operate machinery such as power tools, lawn mowers, drills, sewing machines, or stoves ? Avoid alcoholic beverages and drugs for allergies, nerves, or sleep ? Do not make important personal or business decisions or sign any legal documents With: Address: When: [facility] Within 3 to 5 days Comments: Diagnosis is dental infection. From evaluation you have pain and swelling in the localized area of your mouth. We are starting you on antibiotics take these as prescribed. Also providing medication the form of antibiotic rinse, use as prescribed. May take Tylenol ibuprofen to help with pain relief, do not take more than 4000 mg of Tylenol in 24. Follow-up with your own dentist, or I gave you multiple dental options with information pamphlets, in the next 3-5 days for evaluation. Follow-up with [facility] dental clinic,[phone], You may also follow-up with [facility] . From Adult Dental emergency, Call Return to emergency department/urgent care for worsening symptoms or concerns, spiking high fevers, redness going up or down the side your face, swollen eyes, any questions. With: Address: When: None Provider [address] [place] [address] Medication Information: The exam and treatment you received today in the [facility] were for an urgent problem and are not intended as complete care. It is important for you to follow up with a doctor, nurse practitioner, or physician?s marketing assistant manager for ongoing care. If your symptoms become worse or you do not improve as expected and you are unable to reach your usual health care provider, you should return to the Emergency Department, we are available 24 hours a day. For those patients who have received Radiology results, the interpretation of your X-ray as given to you by our Urgent Care physician is only a preliminary report. The Radiologist will review your films and if there is a change in the diagnosis you will be notified by phone. Please make sure you have provided a working phone number so we can reach you if necessary. In the event that you had a lab culture while you were a patient in the Urgent Care, you will be notified by phone if there is a need to change your antibiotic. Please make sure you have provided a working phone number so we can reach you if necessary. [facility] has provided you with a complete list of medications post discharge. 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 Any specific questions regarding your chronic medications and dosages should be discussed with your primary care physician(s) and/or pharmacist. New Medications [facility], [address] [place] [phone], [phone] chlorhexidine topical (Peridex 0.12% mucous membrane liquid) 15 Milliliter Oral 2 times a day for 7 Days. (swish and spit; do not swallow). Refills: 0. clindamycin (clindamycin 150 mg oral capsule) 2 cap(s) Oral Every 8 hours for 7 Days. Refills: 0. Additional medications on your home medication list not specifically addressed. Please contact the ordering physician if you have questions about these medications. buprenorphine-nal oxone (Suboxone 12 mg-3 mg sublingual film) 1 Each Sublingual every day. cloNIDine (cloNIDine 0.1 mg oral tablet) 1 tab(s) Oral 2 times a day. hydrOXYzine (hydrOXYzine pamoate 25 mg oral capsule) 1 cap(s) Oral 4 times a day as needed for anxiety. naloxone (naloxone 4 mg/0.1 mL nasal spray) Visit Information Allergies: Substance Reaction Symptoms Type Comments Ceclor Rash Drug Vital Signs: Vitals and Measurements this Visit (last charted value for your 02/23/2023 visit) Vital Signs This Visit Temperature Tympanic: 37.2 DegC Peripheral Pulse Rate: 82 bpm Respiratory Rate: 16 br/min Systolic Blood Pressure: 114 mmHg Diastolic Blood Pressure: 70 mmHg SpO2: 96 % Oxygen Therapy: Room air Blood Pressure Method: Manual Measurements This Visit Height/Length Measured: 170.18 cm Weight Measured: 62.78 kg Body Mass Index: 21.68 kg/m2 BSA Measured: 1.72 m2 Problems List: Problem Onset Comments No Problems found Patient Education Dental Abscess (Ins (more content not included)... Normal [facility] Alanine aminotransferase [En zymatic activity/volume] in Serum or PlasmaOrdered By: Jj Salinas on 01-28-2023 ALT [Catalytic activity/Vol] 10 U/L 7-52 [facility] Albumin [Mass/volume] in Ser um or Plasma by Bromocresol green (BCG) dye binding methoOrdered By: Jj Salinas on 01-28-2023 Albumin BCG dye [Mass/Vol] 4.8 g/dL 3.5-5.7 [facility] Alkaline phosphatase [Enzyma tic activity/volume] in Serum or PlasmaOrdered By: Jj Salinas on 01-28-2023 ALP [Catalytic activity/Vol] 84 U/L 34-104 [facility] Amylaseon 01-28-2023 Amylase [Catalytic activity/Vol] 71 U/L Normal [facility] Comment on above: Result Comment: PERF ORMED BY: [place] [address] PATHOLOGIST STILL CLEANER ARA AGUILAR M.D. Performed By: #### A MY #### [address] Amylase [Enzymatic activity/ volume] in Serum or PlasmaOrdered By: Jj Salinas on 01-28-2023 Amylase [Catalytic activity/Vol] 71 U/L 29103 [facility] Aspartate aminotransferase [ Enzymatic activity/volume] in Serum or PlasmaOrdered By: Jj Salinas on 01-28-2023 AST [Catalytic activity/Vol] 13 U/L 13-39 [facility] Automated erythrocytes count in urine sediment (number/area)Ordered By: Jj Salinas on 01-28-2023 RBC Auto (Urine sed) [#/Area] 3-4 [HPF] 0-4 [facility] Automated leukocytes count i n urine sediment (number/area)Ordered By: Jj Salinas on 01-28-2023 WBC Auto (Urine sed) [#/Area] 0-1 [HPF] 0-4 [facility] Automated urine sediment fátima cium oxalate crystal count by microscopy (number/high powOrdered By: Jj Salinas on 01-28-2023 Calcium oxalate crystals LM.HPF (Urine sed) [#/Area] 1+ [HPF] [facility] Basic Metabolic Panelon 01-14 Anion gap [Moles/Vol] 11.1 mmol/L Normal 6.0-15.0 [facility] Comment on above: Performed By: #### B MP, HEPATIC, CBC, LIPASE #### [facility] [address] Calcium [Mass/Vol] 10.2 mg/dL Normal 8.6-10.3 [facility] Comment on above: Performed By: #### B MP, HEPATIC, CBC, LIPASE #### [facility] [address] [place] [address] [place] Chloride [Moles/Vol] 100 mmol/L Normal 98-107 [facility] Comment on above: Performed By: #### B MP, HEPATIC, CBC, LIPASE #### [facility] [address] [place] [address] [place] CO2 [Moles/Vol] 30.3 mmol/L Normal 21.0-31.0 [facility] Comment on above: Performed By: #### B MP, HEPATIC, CBC, LIPASE #### [facility] [address] [place] [address] [place] Creatinine [Mass/Vol] 0.91 mg/dL Normal 0.60-1.20 [facility] Comment on above: Performed By: #### B MP, HEPATIC, CBC, LIPASE #### [facility] [address] [place] [address] [place] Creatinine Clr Calc Pharmacy 87.11 [facility] Comment on above: Performed By: #### B MP, HEPATIC, CBC, LIPASE #### [facility] [address] [place] [address] [place] GFR/1.73 sq M.predicted MDRD (S/P/Bld) [Vol rate/Area] mL/min/{1.73_m2} [facility] Comment on above: Performed By: #### B MP, HEPATIC, CBC, LIPASE #### [facility] [address] Glucose [Mass/Vol] 89 mg/dL Normal 70-100 [facility] Comment on above: Result Comment: [facility] Glucose Reference Range is dependent on time and content of last meal. Glucose of more than 200 mg/dL in a nonstressed, ambulatory subject supports the diagnosis of Diabetes Mellitus. ADA recommended reference range Performed By: #### B MP, HEPATIC, CBC, LIPASE #### [facility] [address] Potassium [Moles/Vol] 3.4 mmol/L Low 3.5-5.1 [facility] Comment on above: Performed By: #### B MP, HEPATIC, CBC, LIPASE #### [facility] [address] Sodium [Moles/Vol] 138 mmol/L Normal 136-145 [facility] Comment on above: Performed By: #### B MP, HEPATIC, CBC, LIPASE #### [facility] [address] Urea nitrogen [Mass/Vol] 11 mg/dL Normal 7-25 [facility] Comment on above: Performed By: #### B MP, HEPATIC, CBC, LIPASE #### [facility] [address] Basophils Auto (Bld) [#/Vol] Ordered By: Jj Salinas on 01-28-2023 Basophils (Bld) [#/Vol] 0.1 10*3/uL 0.0-0.2 [facility] Basophils/100 WBC Auto (Bld) Ordered By: Jj Salinas on 01-28-2023 Basophils/100 WBC (Bld) 0.5 % . F [facility] Bilirubin Test strip Ql (U)O rdered By: Jj Salinas on 01-28-2023 Bilirubin Ql (U) Negative Negative [facility] Bilirubin.direct [Mass/volum e] in Serum or PlasmaOrdered By: Jj Salinas on 01-28-2023 Bilirubin.direct [Mass/Vol] 0.10 mg/dL 0.03-0.1 8 [facility] Bilirubin.total [Mass/volume ] in Serum or PlasmaOrdered By: Jj Salinas on 01-28-2023 Bilirubin [Mass/Vol] 0.6 mg/dL 0.3-1.0 [facility] Calcium [Mass/volume] in Ser um or PlasmaOrdered By: Jj Salinas on 01-28-2023 Calcium [Mass/Vol] 10.2 mg/dL 8.6-10.3 [facility] Carbon dioxide, total [Moles /volume] in Serum or PlasmaOrdered By: Jj Salinas on 01-28-2023 CO2 [Moles/Vol] 30.3 mmol/L 21.0-31.0 [facility] Chloride [Moles/volume] in S berna or PlasmaOrdered By: Jj Salinas on 01-28-2023 Chloride [Moles/Vol] 100 mmol/L 98-107 [facility] Color Auto (U)Ordered By: Dahiana Salinas on 01-28-2023 Color (U) Yellow Yellow [facility] Complete Blood Count Auto Di ffon 01-28-2023 Basophils (Bld) [#/Vol] 0.1 10*3/uL Normal 0.0-0.2 [facility] Comment on above: Result Comment: PERF ORMED BY: [place] [address] PATHOLOGIST STILL CLEANER ARA AGUILAR M.D. Performed By: #### B MP, HEPATIC, CBC, LIPASE #### [facility] [address] [place] [address] [place] Basophils/100 WBC (Bld) 0.5 % Normal . F [facility] Comment on above: Performed By: #### B MP, HEPATIC, CBC, LIPASE #### [facility] [address] [place] [address] [place] Eosinophils (Bld) [#/Vol] 0.0 10*3/uL Normal 0.0-0.45 [facility] Comment on above: Performed By: #### B MP, HEPATIC, CBC, LIPASE #### [facility] [address] [place] [address] [place] Eosinophils/100 WBC (Bld) 0.1 % Normal . [facility] Comment on above: Performed By: #### B MP, HEPATIC, CBC, LIPASE #### [address] Erythrocyte distribution width (RBC) [Ratio] 13.6 % Normal 11.9-15.3 [facility] Comment on above: Performed By: #### B MP, HEPATIC, CBC, LIPASE #### [address] Hematocrit (Bld) [Volume fraction] 44.0 % Normal 34.0-46.4 [facility] Comment on above: Performed By: #### B MP, HEPATIC, CBC, LIPASE #### [address] Hemoglobin (Bld) [Mass/Vol] 14.9 g/dL Normal 11.8-15. 4 [facility] Comment on above: Performed By: #### B MP, HEPATIC, CBC, LIPASE #### [address] Lymphocytes (Bld) [#/Vol] 1.7 10*3/uL Normal 1.00-4.8 [facility] Comment on above: Performed By: #### B MP, HEPATIC, CBC, LIPASE #### [address] Lymphocytes/100 WBC (Bld) 14.8 % Normal . [facility] Comment on above: Performed By: #### B MP, HEPATIC, CBC, LIPASE #### [address] MCH (RBC) [Entitic mass] 30.3 pg Normal 24.7-34.3 [facility] Comment on above: Performed By: #### B MP, HEPATIC, CBC, LIPASE #### [address] MCV (RBC) [Entitic vol] 89.8 fL Normal 80-100 F [facility] Comment on above: Performed By: #### B MP, HEPATIC, CBC, LIPASE #### [facility] [address] Mean Corpuscular HGB Conc 33.8 g/dL Normal 32.0-35.0 [facility] Comment on above: Performed By: #### B MP, HEPATIC, CBC, LIPASE #### [facility] [address] Monocytes (Bld) [#/Vol] 0.7 10*3/uL Normal 0.0-0.8 [facility] Comment on above: Performed By: #### B MP, HEPATIC, CBC, LIPASE #### [facility] [address] [place] [address] [place] Monocytes/100 WBC (Bld) 16.71 % Normal 0.00-20.00 [facility] Comment on above: Performed By: #### B MP, HEPATIC, CBC, LIPASE #### [facility] [address] [place] [address] [place] Monocytes/100 WBC (Bld) 6.0 % Normal . [facility] Comment on above: Performed By: #### B MP, HEPATIC, CBC, LIPASE #### [facility] [address] [place] [address] [place] Neutrophils (Bld) [#/Vol] 9.2 10*3/uL High 1.8-7.7 [facility] Comment on above: Performed By: #### B MP, HEPATIC, CBC, LIPASE #### [place] [address] [place] Neutrophils/100 WBC (Bld) 78.6 % Normal . [facility] Comment on above: Performed By: #### B MP, HEPATIC, CBC, LIPASE #### [facility] [address] [place] [address] [place] NRBC% 0.0 /100{WBC} Normal 0-0.5 [facility] Comment on above: Performed By: #### B MP, HEPATIC, CBC, LIPASE #### [facility] [address] [place] [address] [place] Platelet mean volume (Bld) [Entitic vol] 9.0 fL Normal 6.3-10.7 [facility] Comment on above: Performed By: #### B MP, HEPATIC, CBC, LIPASE #### [facility] [address] Platelets (Bld) [#/Vol] 288 10*3/uL Normal 150-450 [facility] Comment on above: Performed By: #### B MP, HEPATIC, CBC, LIPASE #### [address] RBC (Bld) [#/Vol] 4.90 10*6/uL Normal 3.60-5.00 [facility] Comment on above: Performed By: #### B MP, HEPATIC, CBC, LIPASE #### [address] WBC (Bld) [#/Vol] 11.7 10*3/uL High 3.8-11.6 [facility] Comment on above: Performed By: #### B MP, HEPATIC, CBC, LIPASE #### [address] Creatinine [Mass/volume] in Serum or PlasmaOrdered By: Jj Salinas on 01-28-2023 Creatinine [Mass/Vol] 0.91 mg/dL 0.60-1.20 [facility] Dipstick and Microscopicon 0 01-28-2023 Appearance (U) Cloudy Critically abnormal Clear [facility] Comment on above: Order Comment: Name Collection Type:: Clean-Voided Midstream Performed By: #### U HCG, ADDONUAPLUS #### [address] Bacteria,Urine 2+ High None Seen [facility] Comment on above: Order Comment: Name Collection Type:: Clean-Voided Midstream Performed By: #### U HCG, ADDONUAPLUS #### [address] Bilirubin,Urine Negative Normal Negative [facility] Comment on above: Order Comment: Name Collection Type:: Clean-Voided Midstream Performed By: #### U HCG, ADDONUAPLUS #### [facility] [address] [place] [address] Calcium Oxalate Crystals,Urine 1+ Normal [facility] Comment on above: Order Comment: Name Collection Type:: Clean-Voided Midstream Performed By: #### U HCG, ADDONUAPLUS #### [facility] [address] [place] [address] Color (U) Yellow Normal Yellow [facility] Comment on above: Order Comment: Name Collection Type:: Clean-Voided Midstream Performed By: #### U HCG, ADDONUAPLUS #### [facility] [address] [place] [address] Glucose Ql (U) Normal Normal Normal [facility] Comment on above: Order Comment: Name Collection Type:: Clean-Voided Midstream Performed By: #### U HCG, ADDONUAPLUS #### [facility] [address] [place] [address] Hyaline Casts,Urine 0-8 Normal 0-8 [facility] Comment on above: Order Comment: Name Collection Type:: Clean-Voided Midstream Performed By: #### U HCG, ADDONUAPLUS #### [facility] [address] [place] [address] Ketones Ql (U) Trace High Negative [facility] Comment on above: Order Comment: Name Collection Type:: Clean-Voided Midstream Performed By: #### U HCG, ADDONUAPLUS #### [facility] [address] [place] [address] Leukocyte esterase Test stri p Ql (U) 1+ High Negative [facility] Comment on above: Order Comment: Name Collection Type:: Clean-Voided Midstream Performed By: #### U HCG, ADDONUAPLUS #### [facility] [address] [place] [address] [place] Nitrite,Urine Negative Normal Negative [facility] Comment on above: Order Comment: Name Collection Type:: Clean-Voided Midstream Performed By: #### U HCG, ADDONUAPLUS #### [facility] [address] [place] [address] Occult Blood,Urine Negative Normal Negative [facility] Comment on above: Order Comment: Name Collection Type:: Clean-Voided Midstream Performed By: #### U HCG, ADDONUAPLUS #### [facility] [address] [place] [address] pH (U) 6.5 [pH] Normal 5.0-9.0 [facility] Comment on above: Order Comment: Name Collection Type:: Clean-Voided Midstream Performed By: #### U HCG, ADDONUAPLUS #### [address] Protein,Urine Trace High Negative [facility] Comment on above: Order Comment: Name Collection Type:: Clean-Voided Midstream Performed By: #### U HCG, ADDONUAPLUS #### [address] RBC,Urine 3-4 Normal 0-4 [facility] Comment on above: Order Comment: Name Collection Type:: Clean-Voided Midstream Performed By: #### U HCG, ADDONUAPLUS #### [address] Specificy [place],Urine 1.029 Normal 1.001-1.030 [facility] Comment on above: Order Comment: Name Collection Type:: Clean-Voided Midstream Performed By: #### U HCG, ADDONUAPLUS #### [address] Squamous Epithelial Cell,Urine 10-19 High 0-2 [facility] Comment on above: Order Comment: Name Collection Type:: Clean-Voided Midstream Performed By: #### U HCG, ADDONUAPLUS #### [address] Urobilinogen,Urine Normal Normal Normal [facility] Comment on above: Order Comment: Name Collection Type:: Clean-Voided Midstream Performed By: #### U HCG, ADDONUAPLUS #### [address] WBC LM.HPF (Urine sed) [#/Area] 0 /[HPF] Normal 0-4 [facility] Comment on above: Order Comment: Name Collection Type:: Clean-Voided Midstream Performed By: #### U HCG, ADDONUAPLUS #### [facility] [address] Eosinophils Auto (Bld) [#/Vo l]Ordered By: Jj Salinas on 01-28-2023 Eosinophils (Bld) [#/Vol] 0.0 10*3/uL 0.0-0.45 [facility] Eosinophils/100 WBC Auto (Bl d)Ordered By: Jj Salinas on 01-28-2023 Eosinophils/100 WBC (Bld) 0.1 % . [facility] Erythrocyte distribution wid th Auto (RBC) [Ratio]Ordered By: Jj Salinas on 01-28-2023 Erythrocyte distribution width (RBC) [Ratio] 13.6 % 11.9-15.3 [facility] Globulin Calc (S) [Mass/Vol] Ordered By: Jj Salinas on 01-28-2023 Globulin (S) [Mass/Vol] 3.9 g/dL F [facility] Glucose [Mass/volume] in Ser um or PlasmaOrdered By: Jj Salinas on 01-28-2023 Glucose [Mass/Vol] 89 mg/dL 70-100 [facility] Comment on above: ADA recommended refe rence rangeRandom Glucose Reference Range is dependent on time and content of last meal. Glucose of more than 200 mg/dL in a nonstressed, ambulatory subject supports the diagnosis of Diabetes Mellitus. HCG ( test) IA.rapi d Ql (U)Ordered By: Jj Salinas on 01-28-2023 HCG ( test) Ql (U) Negative [facility] HCG,Urineon 01-28-2023 Beta HCG ( test) Ql (U) Negative Normal [facility] Comment on above: Order Comment: Name Collection Type:: Clean-Voided Midstream Result Comment: PERF ORMED BY: [place] [address] PATHOLOGIST STILL CLEANER ARA AGUILAR M.D. Performed By: #### U HCG, ADDONUAPLUS #### [facility] [address] Hematocrit Auto (Bld) [Volum e fraction]Ordered By: Jj Salinas on 01-28-2023 Hematocrit (Bld) [Volume fraction] 44.0 % 34.0-46.4 [facility] Hemoglobin [Mass/volume] in BloodOrdered By: Jj Salinas on 01-28-2023 Hemoglobin (Bld) [Mass/Vol] 14.9 g/dL 11.8-15. 4 [facility] Hepatic Panelon 01-28-2023 Albumin [Mass/Vol] 4.8 g/dL Normal 3.5-5.7 [facility] Comment on above: Performed By: #### B MP, HEPATIC, CBC, LIPASE #### [facility] [address] Albumin/Globulin [Mass ratio] 1.2 {ratio} Normal [facility] Comment on above: Performed By: #### B MP, HEPATIC, CBC, LIPASE #### [facility] [address] ALP [Catalytic activity/Vol] 84 U/L Normal 34-104 [facility] Comment on above: Performed By: #### B MP, HEPATIC, CBC, LIPASE #### [facility] [address] [place] [id number] [place] ALT [Catalytic activity/Vol] 10 U/L Normal 7-52 [facility] Comment on above: Performed By: #### B MP, HEPATIC, CBC, LIPASE #### [facility] [address] [place] [id number] [place] AST [Catalytic activity/Vol] 13 U/L Normal 13-39 [facility] Comment on above: Performed By: #### B MP, HEPATIC, CBC, LIPASE #### [facility] [address] [place] [id number] [place] Bilirubin [Mass/Vol] 0.6 mg/dL Normal 0.3-1.0 [facility] Comment on above: Performed By: #### B MP, HEPATIC, CBC, LIPASE #### [facility] [address] [place] [id number] [place] Bilirubin,Indirect 0.5 mg/dL Normal [facility] Comment on above: Performed By: #### B MP, HEPATIC, CBC, LIPASE #### [facility] [address] Bilirubin.indirect [Mass/Vol] 0.10 mg/dL Normal 0.03-0 .18 [facility] Comment on above: Performed By: #### B MP, HEPATIC, CBC, LIPASE #### [facility] [address] Globulin (S) [Mass/Vol] 3.9 g/dL Normal [facility] Comment on above: Performed By: #### B MP, HEPATIC, CBC, LIPASE #### [facility] [address] Protein [Mass/Vol] 8.7 g/dL Normal 6.4-8.9 [facility] Comment on above: Performed By: #### B MP, HEPATIC, CBC, LIPASE #### [address] Ketones Auto test strip (U) [Mass/Vol]Ordered By: Jj Salinas on 01-28-2023 Ketones (U) [Mass/Vol] Trace Negative [facility] - UrinalysisOrder ed By: Jj Salinas on 01-28-2023 Hyaline casts LM Ql (Urine sed) 0-8 [LPF] 0-8 [facility] Leukocytes [#/volume] correc carmelita for nucleated erythrocytes in Blood by Automated counOrdered By: Jj Salinas on 01-28-2023 WBC corrected for nucl RBC Auto (Bld) [#/Vol] 11.7 10*3/uL 3.8-11.6 [facility] Lipaseon 01-28-2023 Lipase [Catalytic activity/Vol] 271.0 U/L High 11.0-82.0 [facility] Comment on above: Result Comment: PERF ORMED BY: [place] [address] PATHOLOGIST STILL CLEANER ARA AGUILAR M.D. Performed By: #### B MP, HEPATIC, CBC, LIPASE #### [facility] [address] Lipase [Enzymatic activity/v olume] in Serum or PlasmaOrdered By: Jj Salinas on 01-28-2023 Lipase [Catalytic activity/Vol] 271.0 U/L 11.0-82.0 [facility] Lymphocytes Auto (Bld) [#/Vo l]Ordered By: Jj Salinas on 01-28-2023 Lymphocytes (Bld) [#/Vol] 1.7 10*3/uL 1.00-4.8 [facility] Lymphocytes/100 WBC Auto (Bl d)Ordered By: Jj Salinas on 01-28-2023 Lymphocytes/100 WBC (Bld) 14.8 % . [facility] MCH Auto (RBC) [Entitic mass ]Ordered By: Jj Salinas on 01-28-2023 MCH (RBC) [Entitic mass] 30.3 pg 24.7-34.3 [facility] MCHC Auto (RBC) [Mass/Vol]Or dered By: Jj Slainas on 01-28-2023 MCHC (RBC) [Mass/Vol] 33.8 g/dL 32.0-35.0 [facility] MCV Auto (RBC) [Entitic vol] Ordered By: Jj Salinas on 01-28-2023 MCV (RBC) [Entitic vol] 89.8 fL 80-100 F [facility] Monocyte distribution width [Entitic volume] in Blood by AutomatedOrdered By: Jj Salinas on 01-28-2023 Monocyte distribution width Auto (Bld) [Entitic vol] 16.71 % 0.00-20.00 [facility] Monocytes Auto (Bld) [#/Vol] Ordered By: Jj Salinas on 01-28-2023 Monocytes (Bld) [#/Vol] 0.7 10*3/uL 0.0-0.8 [facility] Monocytes/100 WBC Auto (Bld) Ordered By: Jj Salinas on 01-28-2023 Monocytes/100 WBC (Bld) 6.0 % . F [facility] Neutrophils Auto (Bld) [#/Vo l]Ordered By: Jj Salinas on 01-28-2023 Neutrophils (Bld) [#/Vol] 9.2 10*3/uL 1.8-7.7 [facility] Neutrophils/100 WBC Auto (Bl d)Ordered By: Jj Salinas on 01-28-2023 Neutrophils/100 WBC (Bld) 78.6 % . [facility] Nitrite Test strip Ql (U)Ord ered By: Jj Salinas on 01-28-2023 Nitrite Ql (U) Negative Negative [facility] No Panel InformationOrdered By: Jj Salinas on 01-28-2023 Estimated GFR (CKD-EPI) > 60.0 mL/Min [facility] Creatinine Clearanc e (Chem 87.11 [facility] Nucleated erythrocytes [Pres ence] in Blood by Automated countOrdered By: Jj Salinas on 01-28-2023 Nucleated RBC Auto Ql (Bld) 0.0 /100{WBC} 0-0.5 [facility] Platelet mean volume Auto (B ld) [Entitic vol]Ordered By: Jj Salinas on 01-28-2023 Platelet mean volume (Bld) [Entitic vol] 9.0 fL 6.3-10.7 [facility] Platelets Auto (Bld) [#/Vol] Ordered By: Jj Salinas on 01-28-2023 Platelets (Bld) [#/Vol] 288 10*3/uL 150-450 [facility] Potassium [Moles/volume] in Serum or PlasmaOrdered By: Jj Salinas on 01-28-2023 Potassium [Moles/Vol] 3.4 mmol/L 3.5-5.1 [facility] Protein Auto test strip (U) [Mass/Vol]Ordered By: Jj Salinas on 01-28-2023 Protein (U) [Mass/Vol] Trace mg/dL Negative F [facility] Protein [Mass/volume] in Ser um or PlasmaOrdered By: Jj Salinas on 01-28-2023 Protein [Mass/Vol] 8.7 g/dL 6.4-8.9 [facility] RBC Auto (Bld) [#/Vol]Ordere d By: Jj Salinas on 01-28-2023 RBC (Bld) [#/Vol] 4.90 10*6/uL 3.60-5.00 [facility] Serum or plasma albumin/glob ulin mass ratioOrdered By: Jj Salinas on 01-28-2023 Albumin/Globulin [Mass ratio] 1.2 {ratio} [facility] Serum or plasma anion gap de terminationOrdered By: Jj Salinas on 01-28-2023 Anion gap [Moles/Vol] 11.1 mmol/L 6.0-15.0 [facility] Serum or plasma non-glucuron idated bilirubin measurement (mass/volume)Ordered By: Jj Salinas on 01-28-2023 Bilirubin.indirect [Mass/Vol] 0.5 mg/dL [facility] Sodium [Moles/volume] in Ser um or PlasmaOrdered By: Jj Salinas on 01-28-2023 Sodium [Moles/Vol] 138 mmol/L 136-145 [facility] Specific gravity Auto test s trip (U) [Rel density]Ordered By: Jj Salinas on 01-28-2023 Specific gravity (U) [Rel density] 1.029 1.001-1.030 [facility] Squamous epithelial cells de tection in urine sediment by light microscopyOrdered By: Jj Salinas on 01-28-2023 Epithelial cells.squamous LM Ql (Urine sed) 10-19 [HPF] 0-2 [facility] Urea nitrogen [Mass/volume] in Serum or PlasmaOrdered By: Jj Salinas on 01-28-2023 Urea nitrogen [Mass/Vol] 11 mg/dL 7-25 [facility] Urine bacteria detection by automated methodOrdered By: Jj Salinas on 01-28-2023 Bacteria Auto Ql (U) 2+ None Seen [facility] Urine clarity by refractomet ry automatedOrdered By: Jj Salinas on 01-28-2023 Clarity Refractometry automated (U) Cloudy Clear [facility] Urine glucose measurement by automated test strip (mass/volume)Ordered By: Jj Salinas on 01-28-2023 Glucose Auto test strip (U) [Mass/Vol] Normal mg/dL Normal [facility] Urine hemoglobin detection b y automated test stripOrdered By: Jj Salinas on 01-28-2023 Hemoglobin Auto test strip Q l (U) Negative Negative [facility] Urine leukocyte esterase det ection by automated test stripOrdered By: Jj Salinas on 01-28-2023 Leukocyte esterase Auto test strip Ql (U) 1+ Negative [facility] Urine sediment crystal ident ification by light microscopyOrdered By: Jj Salinas on 01-28-2023 Crystals LM Nom (Urine sed) N/A [facility] Urobilinogen Auto test strip (U) [Mass/Vol]Ordered By: Jj Salinas on 01-28-2023 Urobilinogen (U) [Mass/Vol] Normal mg/dL Normal [facility] WBC Auto (Bld) [#/Vol]Ordere d By: Jj Salinas on 01-28-2023 WBC (Bld) [#/Vol] 11.7 10*3/uL 3.8-11.6 [facility] pH Auto test strip (U)Ordere d By: Jj Salinas on 01-28-2023 pH (U) 6.5 [pH] 5.0-9.0 [facility] Coding Summaryon 04-21-2022 Coding Summary HTMLBase 64 MyksabwqQIm2ySy+P GhlYWQ+HV2BDJFjO5 3ihMMnyE3PX2wMWP6 DMGMXUVHVQB2RES1j cJS6CAufP8LtnfVl BlbijUVeRF07HGb7R WF4sXndPVogfO6lnF WeZ4h9UhNfBN55aV0 2THadZESjVjN0XmSq bjsgbWFy X9haCvXdsHBjRip+P HRhYmxlIHdpZHRoPS cxMDAlJyBzdHlsZT0 bUw0vWACfLBZgsIwl cHNlOiBj r6usPOLaLOwvLI6jp RbuW2CcdZB2BUDul2 n3Lt30sBO+PHRkIHN 3mXpaCYxlx533SuFm x2ycGRC8 kMRnJVvrQWJ8A06qz 0D8EFUsANDmPVM9iD S9xL2avIorpqlvV9J cdGYrZbL1ATH3yMBk eU2dcZia dlhayT1sEue+Q09ES I0SWHSXYF1QYmp7P4 RkPjwvdHI+KQ81SAC wTV27jNZduGKni9aj hZa1XaCh CMZmNUV1oIosLLwyj 7DeEPGaX63dsPCyb0 Y7LUOslEfrbTDpOwR zfFG0gI8uNOwscpgi c9rblhuq Aglch0dsaz41hP43M 64tOMkyHOInPKD8GF PoZDAziTdezt4giE0 wIi8+AVykr2gon1mi qBo3NxPe VCRpyiHxiEbzBXC4a 4VfUy75M9BzcRapq2 PyUgu7ak33gONyq6Y 1wGB2RHteMAUarY7k LWxlZnQ6 VJJxJyUqkH76tJBnZ DpvYx9agMlplPigRV 5zXWNceyguUFXasR5 eOSRbqBRdkAroSM9z NTBpbjtm t111YxXgEQX4TFTvw CYdV8YbaI9iSjXcVC NlXDEdK7SoiXWaPLj yS462QVufFbR9JZRq csAmP4Wn JSKuuYakRkI8x3B8M e0Hg0XzdjotRDL9YQ zfBHBwUoX2KfWsMfQ 0D5FpLpc0INBtrRha BY0sF6Dz VEYbvdeuxkjvwVJ0P OCtASJlyD27gWTcZG buTt1xl0R5n465MGW iEGNslS32Fo7siStq MTBwdCBU bV9dpchih5niizdtS vVrAEYpEMb6YPz2VG GlqLdoFyMwBCX6HwW 0WRA2zTFxfH6boGwe herwdV3l Oyc+F51doS2aKKM1I NJ8lxdxKMBepyAxWT 39WB10F2XhDrrwqUT ibGU+PGRpdiBzdHls LO5eJyPy u4nlg8SyEVudP5BmU WWhPPjeTnc7JMFoMY U7hFH7yT9kLCMxUAe df9J5rVT3A7FxplWj lt4tv7qg NMNwTMerN89llDFpc 8P1IDFmmHN3WMHkwT zyAjTwpF67Ele+PGN xuGbvk7TcCfefy4tr z9nkzMd6 IjMwJSIgdmFsaWduP BO9u9HgJj28C38iYU dpZHRoPSIxNSUiIHZ gnSsrea5ejX3qPz3+ PGNvbCB3 rZI7sY0xECXrEdG8N UkrF745GdQcaILfUm vni4wuk3jtvJj9XiC wJSIgdmFsaWduPSJ0 a6CmOq29 G09qDVrpDQCeSVNiM PEfCPTxwEelss7ajL 9wIi8+FE8as7bvhc9 7aQ24nAI+PHRkIHN0 eWxlPSdw HUMowO3gDLswNcA0J ILgPnSisS76jXLgWF hxTd9cbVwseBbfKR7 jTMUedooav618SaQc b8uoKYHc yHStTGglJZF5M53zl 1E7OVGyCMRyPWD9vG O8oV0jwTrzulfwoEH mdDsgdmVydGljYWwt ZOmjM169 IHRvcDsnPlBhdGllb wBySoFfNGj3M3WmFm h8YYElkBofJG7tkOT kAGnkZq2tjAhieZfc XA2pGYBk qufad846HcLvk7ohF OCbvEPsQYvmNAF1D2 2id1O1WWVqFIAqRHG 2dXX6rE7bcOxyotly bGVmdDsg dmVydGljYWwtYWxpZ 246IHRvcDsnPkJpcn AwYKRsqVY3CB10HT2 9nSTmu2I9vIB1E4Ez ZGRpbmct pmvcuDL1CKBrAUVhz R11Pi5xgYaoRa8yHS RsVBK6NAQvvZNmL4H xeD3dYcRmKYKcSJAh A7YhsHGr XCuqL246UCjpXmZ5V FExavWgG4CzRIXdqK rfHhX6m9Q6Vj7NK8F 8BQ81NL09sJKwy7D1 dZD9U1Gz GGFyjsievydlmAW3I CTrOUXkiC04Ay9rkT nvIl6aNHDqOLU0BSB nuWIkF0RylF4yFmRo MDAwMDAw F2ZweIHwLAsaT674Z EvkBwE5NAVnrcDaS7 NvJTPteWqzOpG1c8D 8Ea6LUGe8KC24HD18 fIPyy2U9 wXA2V9QjSXMhqoaci ejfmUH9PLLtDUJziJ 33Ec8ogSckGm5bCED qEVQ2CHWlhFGcN7Kr hK6cRwIe PVFrBGJjG2LztLOgD TiaT673XDflUjC7RR QvriKuB9UzGVQzcEd kJoZ6q9D4Wx4EZRZv IX03XZC4 tZT3RV07ZY63R9TtZ jwvdGFibGU+PHRhYm xlIHdpZHRoPScxMDA eZiThrVnbML2tSt2x ZGVyLWNv cHvxuUAhFaZbf0yoH OZhZLqrKX9vnJfhL8 XdvPQ4NQNlj6p0Po1 8S73jR7DdeYI+PGNv zXY7aZG9 hB8zMbEcZfC0FOrmX 357GgRclDPvTazsb4 vwe9jrcFr3CgZ9PMS sgvVyhCpgWRD0o8Fx Nk03T30r IHdpZHRoPSIxNSUiI FBceEahgg0ahI5cQu 8+OLYdnKW0fVL5vH1 xPyHoAzR2WJvoP327 InRvcCIv Covdi7rng5yepNd4R jIwJSIgdmFsaWduPS I7g2GoZw15S0WbqHr ag5AfLsq5gm44vAOz v9C7fNX5 N9JjOIWbtdabuNVfr HenOB3fTRJpjkwfSI JnlU5mPKXrI8e7EbS dUzS2ILhgA5UhtuH5 IDEwcHQg DWeoAMN6D01es6R9T MFaXVGvNKD7lXC6hC 1hbGlnbjogbGVmdDs gdmVydGljYWwtYWxp H379HSGj wBriKNAdxA9iNAMpg IEeaTtnIR2qIVKqzz lkKw8JT0YIHYUrJSi BPIUGYESBUV6TUK52 CV38qWTm v6Q4bWI8P1MtCFUtm jvrhiqssNJ7CDCtWC TxwZ79uOXwECheRs8 zu6X6i465YNJhFTNs vP03Dk9r mUioSDPecCOFcV0mt tugk5gjbqudOpSgAD XuYHu5MCf3GHYefCb nTgCwSIY1BtJ8DOG1 nLSclF6s pXimdpswsL2mBpz+M DZsCQrdRQe6TlhmbY Q+MMHjBZN3wUwkOMo sYVLjmT6yJZMkR7t9 OiAwLjA1 MIjfF0UuFFMxdzrgJ q93zV8cJvFqKwH6OO oaE1XdnjE5VLGnoOZ wXHheDCP2Z42mc8L9 ICMwMDAw JOG8aBI1eY9dpMhka jogbGVmdDsgdmVydG zfTPweRXwfM445PNJ vcDsnPjMwIFllYXJz DG76AL16 sYFaa3S9gNF2W2HhA MOghdsuqggxkCQ4BO GbGKPapM29vYTvIJg nZp5oo3H6f079EDKq GWCktI59 Gm8rrUokRKIbfPMTp L2woggtg4cfftziRu CuCOQsLLm3JQh7FNV eiSdeUdZjEFT2WnC0 NTZ7nOIl gH5wkSmvecvuxZ5pJ yc+SqNPMUeSDR67KS 46xMCrn4D4aDP0F1V hZGRpbmctcmlnaHQ6 IDAuMDUw hY30yCGxGKjgIo9of 7S4j770LPGcYUSvoJ 36It9trWttZBEilWV BeV4wblniw9jenmqw IzAwMDAw GZs0XYx4KQErrUscH oHmZJX6KgO8QQK5zH UsrL9vdUprafblfW2 wOyc+H8P1P1CpKnrg dHI+PC90 CTPdPZ66cPDtuDRra 5vqqQg6YtJtWYIyRX T8wQmnMMene4TdBMN kN55fsDZge9J0YYTb bGxhcHNl YiWfwRK8aH2cUUmgu xkgr3xrumlaYgmoy4 ihxj29eV82Y10zTYq pZHRoPSIzMCUiIHZh iUyzjj5n bB0eSk4+WXUaeSH5v LS4mZ6gMvVxAfU3FV ulC838InZgwOHlHws xx8rei7ejtZz8KyKp JSIgdmFs pEaxEYY5d3MqWb10L 29sIHdpZHRoPSIyMC NiWUSchVgrbo1cwS0 wIi8+JU7ic8bzll74 rE62oDR+ KJZzHCE9lNvcYSiaY SLxiH8nKKpcJwJ3NJ ArZdNwrL74iMNzEOo dKt2heTwfrXztGW6o NTBpbjtm b137ItXps7mfPRWan TIbWMjoWDB5Z54af9 G8TKRgPFIrBNJ8qXH 2hL3ysMqkvarowFMm dDsgdmVy uLctSJkeVJyqT884I HRvcDsnPlBoeXNpY2 exrxWCGF6vLtiuqZV +YHLcLVR9tUdlUCwu LZJjmA6i QUDmF6w1ZtKkVqR7Z OwhK6TipbE4XBAxzF MeTUIcaQJDrW8khkf im7xkenwlFyGtCCSl EWc4XGf5 MWNvvFdmMiFeCHJ8C cU9NGB6rSOctF4duB ypnmmruT1nUgk+Rkl OOjwvdGQ+PHRkIHN0 eWxlPSdw HZFehY6uFSWvC3a9V hCqKjS4GZoqU6Idxu V1PZTsaWEwZLTuuQT UdT2zecgxr4ythzsj IzAwMDAw MCb8EIg7XWCwuTskG wXfDHB0QjG1UIQ7qR GilG5hqYapgslkkN6 wOyc+TVJOOjwvdGQ+ PHRkIHN0 pKqqDDmyZUVddD8aZ QTyT8v9VpNuLlV2DY zyP3OyecM1SVKzwVJ cHCZiaILPmS8ahsoe c3whtijy KbSxRLIsSAq0DDj7B KZowGloPgEiAWP0Sp Y4ADN8vKJpsG2daNw phzvgoH8fNgl+UGF5 RIY9SH69 OL80X2GoHczuvYWhx +PHRhYmxlIHdpZH RoPScxMDAlJyBzdHl rJJ2iNr5fTOYaXYCy bGxhcHNl OiB (more content not included)... [facility] Coding Summary HTMLBase 64 FjxltsufPTh5xJi+P GhlYWQ+IO3EHQJbP5 3tuWEktW7ZF3dECY0 XYQUYNBTCRJ6BYC9l yOH6KQhlO9HmqqBe JmadxHJfVI03IIu1R XX6iIcwOHuwsJ0dhO QwQ1l4WcPtJS20gK3 9BZgnAIDsMlE1RsMu bjsgbWFy Z2gdStBjkJWfIcc+P HRhYmxlIHdpZHRoPS cxMDAlJyBzdHlsZT0 sPx7fBTVeMJNmsTzm cHNlOiBj i9vmHBUyISehKR3kn KmfB5QwdLG7MSNae4 f4Ok07nLN+PHRkIHN 9iZopKSpnk740GfHo r1poCKA4 vTXnDCesXQM2Y87zw 3W1ERYcXZEjYDT1qV L8mX4xmFyvmugzY6Z hmTIpKaM5AJA5xXCa uR5ioTke dnhrhX4sYym+Q09ES G2DXEJBHZ0CRzw5X3 RkPjwvdHI+LR87MEP tAW01fSNmeUSqq9hk zFm3ZdDh RSWlMEN5xTrlQDidu 9VyRYGtJ59pnNFgt5 T8QQOjyGmiaLLuZnV ldYO7iF9mPZxknvqt u9mnggye Rwjdh7gvey01rB52N 13oUQouSKEyACR6BI VsMJCafJbzpz6xqM9 wIi8+OOwag2kkx7ob rLd0SmSp EHIyawAmfAphIDY6o 1OqYk01F3PhfKixr4 BjNem8su00gQKte7N 7eYH5PRwnXTOpoO1z LWxlZnQ6 TBClBeAvgE69dUPoO JheHh8zcHusbJecBI 2qZLGsirooBCGegV9 eLEQxaMZsnQivZN8f NTBpbjtm o716IsLsLRE2AQLyu KCaH8GjcF8jNeLeUU BqIGChY5RqwTReQHn kK605BStzEeW6JGHg msCfP5Rx YTOaaFjfBxA1u3C1A w3Qp2CbjrafJXA1VR xsZWIbNhG0EuPeRhD 9M2BeZfe9IQIdnPhw WZ9yG6Ck QRAinpdrdjopiIO6A ZIuUOWzeP17xUNfBN gxKg6yb9C4d025EWH dCIZdmJ69Wi4zxLpl MTBwdCBU oS6mxjxym8grtcflA jAvHVHeCWg8ANd6GN DtoIqxGbKnHDN9HeW 3NNN9kIXbgQ9scIbh xhwsxH1g Oyc+T32itQ3lRXB0D JE3gjmcZUPipdWjPS 17MI52M8DoDcayyRT ibGU+PGRpdiBzdHls JG7bWkLh w6rki9SeXXxgX1OzG LIbKVcnPia0OJIuEU T0uQJ5zX1cDSOsRMx bp5H1tSH4Z0MxbxQl ed1qr4lj VLMbZQwlZ39tsSKip 7U7UYPhbVV1CGYmjU wuMwWyzQ10Ckg+PGN ppDkcr6GqOtgar4np a4uzvNh4 IjMwJSIgdmFsaWduP DG9k4CiTc34A76bQP dpZHRoPSIxNSUiIHZ unXqjyh0hsB7qWw9+ PGNvbCB3 kPW2jM6pFWJaMtO2K XoiH644IkZdzODtIh ajq5hci7fndVw5MxE wJSIgdmFsaWduPSJ0 p9KkKj88 D27bAVpbZCLvZGFbV LRyAYTvqLweao1lzF 9wIi8+YW9gw2bzlx2 6sL65wHO+PHRkIHN0 eWxlPSdw WAVbtB4fNYgkDbW0F EYzQgIrpQ32gVEvNR dwLt9puJjbhJecGA2 mTWWybxdlx732GnQf w6rrQEKm mLRgFLxbKHS6Y94ev 7O6RYJgIYDdMPG5bL B4iA0tzRhebdnnzYB mdDsgdmVydGljYWwt SJcjC923 IHRvcDsnPlBhdGllb bZlJvQtFRk1U0AzAk b2DLZpuGewEP6jyYC qMBqdRu9qeZvkpKqt HT3nGHFu lnyuo883TaTmo3ncQ KAyhKHiMPrrCOB4N2 3qy9C7YWPlHFSoYPI 3gLD6cI7ymDuesdvc bGVmdDsg dmVydGljYWwtYWxpZ 246IHRvcDsnPkJpcn LgVRXryBS9FG49VX4 4mDPlg4B7fJI9P9Ed ZGRpbmct dclubNA9FFNmOYZqu D13Wm8eaKftBb1gOV ApKKI7QEZehERaZ9E nbA7ySiHkLSTdKZRf I2AupWZj AJlkP061SWyrIyU1D YHvswZcQ6XbHMXwrV yhBrS5t8J7Yb9HR8J 2SR92PM20vLChn0N9 yCV3H2My GFBuffsqgpaetPR7M NNuUHVshO92Nx3boS xyPw3hSBBhIXM3KFX kaKLtE0YoeZ3sWuHx MDAwMDAw L3TedYOsHYsnJ339D OrjHoK5IOHyosPuP6 PmJHAhbLicJjT2v1Z 0Xt0HRXz1EW35WW35 nQZwx3A9 rWS2O4XsUESahwiqq ydxyBV1HJEsZVFkbE 47Bx8qsVooLw4tQJE mPWD0PVAfdABkM3Cx sF3oFoOx ADOtUFTaL1GyjSYfE KxdY999IMorDqI2AO TdkaVjF7GrUTZfqCg zAcR4h9J9Oj8MMASg XK58XBI2 oYM8EN15KY07G7MlR jwvdGFibGU+PHRhYm xlIHdpZHRoPScxMDA kVvCltMzaRV7gYo3y ZGVyLWNv cOdkxHZhPyFnn7mxG BPlGXyuZN3knTxwQ0 NmaWU4IMCug7o1Pg3 7N66nG1AfeOG+PGNv iSS4iNQ2 bG5nZyTxZnZ8MCmsK 852RwXojZRjJxlsm1 pcn8mrcTi6BpT1PBY fjtMhuVeqYIQ5d9Li Tq13M58y IHdpZHRoPSIxNSUiI QNqcTisfc9mnU9aNd 8+CZHqqDM3pUZ4aY4 kVfFcAwG3VUbbA264 InRvcCIv Geizi3bzc4gncKr9E jIwJSIgdmFsaWduPS Z5b2JdOb12A4UsnEh bh0OaCgk9bu97gUKb e4O0rKX8 E6QqZLFkvzcjvRSpj PnzPQ3gFYIzjjtkHK CnrW9iYNCwF0h6AdR lFzM7WTlbQ6InckV3 IDEwcHQg UOiwNVQ8Y66vf8J0A NNwNWCgJOT1lSW1fU 1hbGlnbjogbGVmdDs gdmVydGljYWwtYWxp G125BMHb gTmkRNBjxU9jMJSre RYvrWkrKV8eIDMtlz zvEw1JF5HRPZWdGYz NFHVCFQXTJA4BZL95 JU50bZIu x0N9wTQ0P4KpACNqf yokayvpxHN9VHEvUS UxaS81lYWgMNwhDs4 vd8W6x988DNNpMMXk eM60Ye0i aQmaSYPlaGDRmA6mk bvqz5awadjfNcRmCU LeYSk6HPh4ZKEejNs aOcJuXKH8KwU3QMF6 zOEusV6d yWbomgszwC2vZit+M SMuGRtlTEd8VyrusB Q+NVNeYLD2oTifZMu uEDVkaY1vAUFbV8e5 OiAwLjA1 UJbzV6LuADElbjwwG j83kY5gVwLmRvT6YE nwZ5HgzwT9LXQgxVR eWFkeXEC5G34ye6O2 ICMwMDAw DPA2tKY4hU7ssXrbl jogbGVmdDsgdmVydG bbHNvxHMihC857AGP vcDsnPjMwIFllYXJz GL42UY36 xHEyd4V2aSU4O8DrR YWnejczaxpbhQL9XR WbZIEtwW50oUAkFKf dYh6qn5S2l428YYVs CLLwcO68 Uh7jxIagBGDdtZGIk N8pirxgi8cfawzoTp HfAGZsDJj8WYg3MGG zkBnfVqTnHEE7BdN7 RLI1oQDk mD4xmAgkblsbdU9gK yc+CwHGNToVYW45AI 51hMSwl2O5uJH4N3A hZGRpbmctcmlnaHQ6 IDAuMDUw rU57rPPsLJobBu5qq 8L9q709DKBwMIXhdL 22Hb2xcJkrYBGfjGL YmM0jioavh7cdyapc IzAwMDAw FBg6RGa7DETtfZpwF uJvCFS6DiI1IRT3hT MlkW3jaTvahskfkA4 wOyc+ZN2cyjdifsZ4 SK91FQ30 Z6DgKebvuODhvMX+P HRhYmxlIHdpZHRoPS cxMDAlJyBzdHlsZT0 mTd2eYZXdUPWhjQat cHNlOiBj g9kxIQYgDTntJT4uo JaaD6SwhAN5PVRaq8 g4Xx59F25tQ9CiaWL +VMQjcCY0jFE4pF0m MzAlIiB2 OQtsD949ThCnzZHpP urxk8exm7aboSt6Qc MwJSIgdmFsaWduPSJ 3h0XaPj21M96rPQxp ZHRoPSIy UAWkEJJmaXtetv9nl G9wIi8+ANCywYI5aJ W9nT9uAmGcKpL9GCx tU249UvLleXNwNyvz L15fE3Zr dXA+LPLnWqi4ULRqj YtcCN0vhVRvAVrvEc 3sSJI5DvAlYdKsVDy gM2PmYJMnwcduetyo zLX3QIVp DTEcrD76Pe6ysBujL d9sSOHjSGT8QDZevA PwX2CzjZ0wMmKqWGI oBBNhO9MdtGPeDUnr G776GZbi PyK3EPHywqBlQ2UaU FEcvUsyOaL8m8A1Sp 4EkFyvmUSnTU3kYmI oMRp4G9CwUey8GNRy dYsqMX7a rRLxBWtbVt5hbIwkq DyiXW7iYQQenhixz3 39LpZtj0rkCWRktXT fRLwzPIX3K50yv3A8 ICMwMDAw EBC8nZN0nR9xqXztb jogbGVmdDsgdmVydG glVYrdHLcmF524AQO laUzlDzARDmt2I6Lk Hej9RAXg eNbrEA7ldVZqTDmqD i5ggZzhoJanTC6jPV Odjmtnp873OxIfo5v kIDEwcHQgVGltZXM7 L19ui6S5 AFBiMLWnBMP0tZO8w L5roGlupkmiqBFsfJ sgdmVydGljYWwtYWx uS895GMZjtFfrJr8R Txe7A2Fa Ntc3BTWsxXtcGV5dr KTrTWthYr7stBzfbR rtHE9yJWCqxwgxj56 6AlOoc5gdRQBpxFZb VGltZXM7 H46qz5Z0RXXoLGLsA ZV3fXV3mU5axWpabp ogbGVmdDsgdmVydGl aPYmiJEexT777PBOs cDsnPlBh eWVyOjwvdGQ+PC90c w46P5LuBqfpCqv9EP GxTJK0yAM3lY6dUZH cQWdmp6C8pXV6J1Di mhOkxy0f b2x (more content not included)... Normal [facility] ED Note-Nursingon 04-15-2022 ED Note-Nursing Patient called for urine results Normal [facility] Chlamydia/GC Amplification L Con 04-08-2022 Chlamydia trachomatis, FUAD LC Negative In valid Interpretation Code Negative [facility] Comment on above: Performed By: #### 1 [id number] ####[facility] (DEFAULT)[address] [place] [address] Neisseria gonorrhoeae, FUAD LC Negative In valid Interpretation Code Negative [facility] Comment on above: Result Comment: Perf ormed At: =[facility] [place] [id number] Siva Roblero MD Ph:[phone] Performed By: #### 1 [id number] ####[facility] (DEFAULT)[address] [place] [address] ED Clinical Summaryon [address] [facility] - Emergency Department [address] [place] [address] ED Clinical Summary PERSON INFORMATION Name: NAHOMY GALVAN Age: 32 Years Sex: FEMALE : 1990 MRN: Acct#: Visit Reason: Urinary frequency; PAINFUL URINATION Arrival: 04/05/2022 23:10:24 Discharge: 04/06/2022 00:17:00 LOS: 000 01:07 Check In: 04/05/2022 23:10:24 Checkout: 00:17:00 Address: [address] [place] [address] PCP: James Yung PROVIDER INFORMATION Provider Role Assigned Unassigned Toribio Schuster MD ED Provider 04/05/2022 23:14:25 Azeb Magana RN ED Nurse 04/05/2022 23:28:16 VITALS INFORMATION Vital Sign Triage Latest Temperature Tympanic Temperature Temporal Artery Pulse Rate 100 bpm 100 bpm O2 Sat 98 % 98 % Respiratory Rate 16 br/min 16 br/min Blood Pressure /78 mmHg /78 mmHg MEDICAL INFORMATION Medications Given: Medication Dose Route doxycycline (doxycycline hyclate) 100 mg PO cefTRIAXone 1 gm IM Allergy Information: Ceclor PHYSICIAN DOCUMENTATION DISCHARGE INFORMATION: Discharge Disposition: Home Discharge Location: PATIENT EDUCATION INFORMATION Instructions: Dysuria Follow-Up: With: Address: When: James Yung [address] [place], [place] [id number] Within 3 to 5 days DIAGNOSIS: 1:Dysuria; 2:Hematuria Patient Understands: Yes - Patient/family/ca regiver verbalizes understanding of instructions given Comment: Normal [facility] ED Note-Nursingon 04-06-2022 ED Note-Nursing Patient arrives to ED and ambulated back to room 8. Patient states her urine is dark and it hurts with urinations. Patient states she has had frequent UTI's in the past. Patient states she has protein and blood in my urine. Patient states I'm confused and this happens every time when I get a UTI, I know what this is. Patient states she tried to call her pcp but she was unable to be seen. Patient states she does not drink water because I don't like the taste of it. Patient states she hasn't been eating or drinking much the last few days. Patient denies back pain or fevers. Patient states she took tylenol today at noon and denies taking any other medications. Patient states she began her menstrual cycle today. Normal [facility] ED Patient Summaryon [address] [facility] - Emergency Department [address] [id number] PATIENT DISCHARGE INSTRUCTIONS Patient Information Name: NAHOMY GALVAN Age: 32 Years Date of : 1990 Reason For Visit: Urinary frequency; PAINFUL URINATION Arrival Time: 04/05/2022 23:10:24 Primary Care Physician: James Yung Attending Physician: Toribio Schuster MD Comment: Visit Diagnosis: Diagnoses This Visit Dysuria (R30.0) Hematuria (R31.9) Urinary frequency ([id number]) The Pharmacy at [facility] is open Monday through Monday from 9A to 6P and Monday and Monday from 9A to 5P Prescription Information: If you have been given a prescription for narcotics, seek immediate medical attention if you have any difficulty breathing or any sudden status changes such as confusion and sleepiness. If you or anyone you know is experiencing suicidal thoughts, mental health, alcohol and/or drug addiction problems; contact the Mental Health & Recovery Board [facility] 06/02 Crisis Hotline -Text 1KZWJ mt 797846. If you received any narcotics, sedation, or any other medication that causes drowsiness for the next 24 hours, unless otherwise directed: ? Do not drive a car. ? Do not operate machinery such as power tools, lawn mowers, drills, sewing machines, or stoves ? Avoid alcoholic beverages and drugs for allergies, nerves, or sleep ? Do not make important personal or business decisions or sign any legal documents With: Address: When: James Yung [address] [id number] Within 3 to 5 days Medication Information: The exam and treatment you received today in the [facility] Emergency Department were for an urgent problem and are not intended as complete care. It is important for you to follow up with a doctor, nurse practitioner, or physician?s marketing assistant manager for ongoing care. If your symptoms become worse or you do not improve as expected and you are unable to reach your usual health care provider, you should return to the Emergency Department, we are available 24 hours a day. For those patients who have received Radiology results, the interpretation of your X-ray as given to you by our Emergency Department physician is only a preliminary report. The Radiologist will review your films and if there is a change in the diagnosis you will be notified by phone. Please make sure you have provided a working phone number so we can reach you if necessary. In the event that you had a lab culture while you were a patient in the Emergency Department, you will be notified by phone if there is a need to change your antibiotic. Please make sure you have provided a working phone number so we can reach you if necessary. [facility] Emergency Department has provided you with a complete list of medications post discharge. 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 Any specific questions regarding your chronic medications and dosages should be discussed with your primary care physician(s) and/or pharmacist. New Medications [facility] [id number] [place], [place] [id number], [phone] doxycycline (doxycycline hyclate 100 mg oral capsule) 1 cap(s) Oral 2 times a day for 10 Days. Refills: 0. Additional medications on your home medication list not specifically addressed. Please contact the ordering physician if you have questions about these medications. cloNIDine (cloNIDine 0.1 mg oral tablet) 1 tab(s) Oral 2 times a day. dicyclomine (dicyclomine 10 mg oral capsule) 1 cap(s) Oral 4 times a day for 10 Days. doxepin (doxepin 25 mg oral capsule) 1 cap(s) Oral 2 times a day. gabapentin (gabapentin 300 mg oral capsule) 1 cap(s) Oral every other day. hydrOXYzine (hydrOXYzine pamoate 25 mg oral capsule) 1 cap(s) Oral 4 times a day as needed for anxiety. ibuprofen (ibuprofen 400 mg oral tablet) 1 tab(s) Oral Every 4 hours as needed for fever. naloxone (naloxone 4 mg/0.1 mL nasal spray) ondansetron (ondansetron 4 mg oral tablet) 1 tab(s) Oral once. prazosin (prazosin 2 mg oral capsule) 1 cap(s) Oral 3 times a day. traZODone (traZODone 50 mg oral tablet) 1 tab(s) Oral once a day (at bedtime). Visit Information Allergies: Substance Reaction Symptoms Type Comments Ceclor Rash Drug Vital Signs: Vitals and Measurements this Visit (last charted value for your 04/05/2022 visit) Vital Signs This Visit Temperature Oral: 36.9 DegC Peripheral Pulse Rate: 100 bpm Respiratory Rate: 16 br/min Systolic Blood Pressure: 128 mmHg Diastolic Blood Pressure: 78 mmHg SpO2: 98 % Oxygen Therapy: Room air Measurements This Visit Height/Length Dosin.000 cm Height/Length Estimated: 168.000 cm Weight Dosin.650 kg Weight Estimated: 81.650 kg Problems List: Problem Onset Comments No Problems (more content not included)... [facility] UA Dbtug2js 04-06-2022 UA Bacteria None [facility] Comment on above: Order Comment: Urina lysis Microscopic order added on by [employer] Expert Rules system. Performed By: #### 5 [id number], [id number] ####[facility] (DEFAULT)[address] [place] [address] UA Hyal Cast 15-20 [facility] Comment on above: Order Comment: Urina lysis Microscopic order added on by [employer] Rules system. Performed By: #### 5 [id number], [id number] ####[facility] (DEFAULT)[address] [place] [address] UA Mucous 3+ [facility] Comment on above: Order Comment: Urina lysis Microscopic order added on by [employer] Rules system. Performed By: #### 5 [id number], [id number] ####[facility] (DEFAULT)[address] [place] [address]95 UA RBC 3-5 [facility] Comment on above: Order Comment: Urina lysis Microscopic order added on by [employer] Rules system. Performed By: #### 5 [id number], [id number] ####[facility] (DEFAULT)[address] [place] [address] UA WBC 0-2 [facility] Comment on above: Order Comment: Urina lysis Microscopic order added on by [employer] Rules system. Performed By: #### 5 [id number], [id number] ####[facility] (DEFAULT)[address] [place] [address] UA w Culture if Ind Standard on 04-06-2022 Breakpoint UA [facility] Comment on above: Performed By: #### 5 [id number], [id number] ####[facility] (DEFAULT)[address] [place] [address] Color (U) Yellow [facility] Comment on above: Performed By: #### 5 [id number], [id number] ####[facility] (DEFAULT)[address] [place] [address] Culture? Not Indicated Invalid Interpretation Code [facility] Comment on above: Result Comment: Resu lt created by rule GL_MAGR_ADD_UA_CULT Result created by rule GL_MAGR_ADD_UA_CULT Result created by rule GL_MAGR_ADD_UA_CULT1 Performed By: #### 5 [id number], [id number] ####[facility] (DEFAULT)[address] [place] [address] Glucose (U) [Mass/Vol] Negative [facility] Comment on above: Performed By: #### 5 [id number], [id number] ####[facility] (DEFAULT)[address] [place] [address] Ketones Ql (U) TRACE [facility] Comment on above: Performed By: #### 5 [id number], [id number] ####[facility] (DEFAULT)[address] [place] [address] Micro? Indicated Invalid Interpretation Code [facility] Comment on above: Result Comment: Resu lt created by rule GL_MAGR_ADD_UA_MICRO Performed By: #### 5 [id number], [id number] ####[facility] (DEFAULT)[address] [place] [address] UA Bilirubin MODERATE Abnormal [facility] Comment on above: Performed By: #### 5 [id number], [id number] ####[facility] (DEFAULT)[address] [place] [address] UA Blood LARGE Abnormal NEGATIVE [facility] Comment on above: Performed By: #### 5 [id number], [id number] ####[facility] (DEFAULT)[address] [place] [address]873 UA Clarity SL CLOUDY Abnormal CLEAR [facility] Comment on above: Performed By: #### 5 [id number], [id number] ####[facility] (DEFAULT)[address] [place] [address]77 UA Leuk Est Negative Normal NEGATIVE [facility] Comment on above: Performed By: #### 5 [id number], [id number] ####[facility] (DEFAULT)[address] [place] [address] UA Nitrite Negative Normal NEGATIVE [facility] Comment on above: Performed By: #### 5 [id number], [id number] ####[facility] (DEFAULT)[address] [place] [address]245 UA pH 6.0 Normal 5-8 [facility] Comment on above: Performed By: #### 5 [id number], [id number] ####[facility] (DEFAULT)[address] [place] [address] UA Protein [address] [facility] Comment on above: Performed By: #### 5 [id number], [id number] ####[facility] (DEFAULT)[address] [place] [address]593 UA Spec Grav >=1.030 Normal 1.001-1.035 [facility] Comment on above: Performed By: #### 5 [id number], [id number] ####[facility] (DEFAULT)[address] [place] [address] UA Urobilinogen 1.0 mg/dL Normal 0.2-1.0 [facility] Comment on above: Performed By: #### 5 [id number], [id number] ####[facility] (DEFAULT)[address] [place] [address] Urine Source Clean Catch Normal [facility] Comment on above: Performed By: #### 5 [id number], [id number] ####[facility] (DEFAULT)[address] [place] [address] ALLIED HEALTHon 04-04-2022 ALLIED HEALTH HNO ID: [id number] Author: RT Avril(R) Service: Radiology Author Type: Pharmacy Scheduler Type: [facility] Filed: 04/04/2022 7:30 AM Note Text: Radiology Service Progress Note PATIENT NAME: Nahomy Galvan DATE OF SERVICE: April 04, 2022 TIME: 7:29 AM PATIENT IDENTITY VERIFICATION COMPLETED USING TWO (2) IDENTIFIERS: Name and Date of confirmed by patient verbally and Name and Date of confirmed by identification band. FALL SCREENING: Has the patient had 2 falls in the last year or 1 fall with injury or currently using an Ambulatory Assistive Device (Walker, Cane, Wheelchair,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 reported to be 3.0 to 10.0 mg/dL for anti pyretic/analgesic conditions and 15.0 to 30.0 mg/dL for anti inflammatory/rheumatic fever conditions. Ranges published by the instrument slate splitting supervisor. Reference ranges and high/low indicator flags are provided as general guidelines only. The treating physician must determine appropriate target levels/dosing based on the specific clinical situation. Performed By: #### 4 024-6, 3298-7 ####[facility] LABORATORYCLIA [id number] [address] STATES OF [facility] CBCon 01-10-2022 Erythrocyte distribution width (RBC) [Ratio] 13.0 % Normal 11.8-14.4 [facility] Comment on above: Performed By: #### P HEP, HIVCMB #### [address] [address] Dimensional Inspector: Kashmir Oliver MD #### CP, CBC, HCG #### [address] [place], [place] [id number] Dimensional Inspector: Blaze Aguilar MD Hematocrit (Bld) [Volume fraction] 41.1 % Normal 36.3-47.1 [facility] Comment on above: Performed By: #### P HEP, HIVCMB #### [address] [id number] Dimensional Inspector: Kashmir Oliver MD #### CP, CBC, HCG #### [address] [place] [id number] Dimensional Inspector: Blaze Aguilar MD Hemoglobin (Bld) [Mass/Vol] 13.8 g/dL Normal 11.9-15. 1 [facility] Comment on above: Performed By: #### P HEP, HIVCMB #### [address] [address] Dimensional Inspector: Kashmir Oliver MD #### CP, CBC, HCG #### [address] [place] [address] Dimensional Inspector: Blaze Aguilar MD MCH (RBC) [Entitic mass] 30.1 pg Normal 25.2-33.5 [facility] Comment on above: Performed By: #### P HEP, HIVCMB #### [address] [address] Dimensional Inspector: Kashmir Oliver MD #### CP, CBC, HCG #### [address] [place] [address] Dimensional Inspector: Blaze Aguilar MD MCHC (RBC) [Mass/Vol] 33.6 g/dL Normal 28.4-34.8 [facility] Comment on above: Performed By: #### P HEP, HIVCMB #### [id number] [place] [address] Dimensional Inspector: Kashmir Oliver MD #### CP, CBC, HCG #### [address] [place], [place] [id number] Dimensional Inspector: Blaze Aguilar MD MCV (RBC) [Entitic vol] 89.5 fL Normal 82.6-102.9 M [facility] Comment on above: Performed By: #### P HEP, HIVCMB #### [address] [id number] Dimensional Inspector: Kashmir Oliver MD #### CP, CBC, HCG #### [address] [place] [address] Dimensional Inspector: Blaze Aguilar MD NRBC Automated 0.0 per 100 WBC Normal 0.0 [facility] Comment on above: Performed By: #### P HEP, HIVCMB #### [address] [id number] Dimensional Inspector: Kashmir Oliver MD #### CP, CBC, HCG #### [address] [place] [address] Dimensional Inspector: Blaze Aguilar MD Platelet mean volume (Bld) [Entitic vol] 11.0 fL Normal 8.1-13.5 [facility] Comment on above: Performed By: #### P HEP, HIVCMB #### [address] [id number] Dimensional Inspector: Kashmir Oliver MD #### CP, CBC, HCG #### [address] [place] [address] Dimensional Inspector: Blaze Aguilar MD Platelets (Bld) [#/Vol] 315 10*3/uL Normal 138-453 [facility] Comment on above: Performed By: #### P HEP, HIVCMB #### [id number] [place], [place] [id number] Dimensional Inspector: Kashmir Oliver MD #### CP, CBC, HCG #### [facility] [address] [place] [address] Dr. [place], [place] [id number] Dimensional Inspector: Blaze Aguilar MD RBC (Bld) [#/Vol] 4.59 10*6/uL Normal 3.95-5.11 [facility] Comment on above: Performed By: #### P HEP, HIVCMB #### [address] [id number] Dimensional Inspector: Kashmir Oliver MD #### CP, CBC, HCG #### [facility] [address] [place] [address] [place] [address] Dimensional Inspector: Blaze Aguilar MD WBC (Bld) [#/Vol] 7.1 10*3/uL Normal 3.5-11.3 [facility] Comment on above: Performed By: #### P HEP, HIVCMB #### [address] [id number] Dimensional Inspector: Kashmir Oliver MD #### CP, CBC, HCG #### [address] [place] [address] Dimensional Inspector: Blaze Aguilar MD Hematocrit (Bld) [Volume fraction] 41.1 % 36.3 - 47.1 % [facility] Hemoglobin (Bld) [Mass/Vol] 13.8 g/dL 11.9 - 15.1 g/dL [facility] MCH (RBC) [Entitic mass] 30.1 pg 25. 2 - 33.5 pg [facility] MCHC (RBC) [Mass/Vol] 33.6 g/dL 28.4 - 34.8 g/dL [facility] MCV (RBC) [Entitic vol] 89.5 fL 82.6 - 102.9 fL [facility] NRBC Automated 0.0 0.0 per 100 WBC [facility] Platelet distribution width (Bld) [Ratio] 13.0 % 11.8 - 14.4 % [facility] Platelet mean volume (Bld) [Entitic vol] 11.0 fL 8.1 - 13.5 fL [facility] Platelets (Bld) [#/Vol] 315 10*3/uL [facility] RBC (Bld) [#/Vol] 4.59 10*6/uL 3.95 - 5.1 1 m/uL [facility] WBC (Bld) [#/Vol] 7.1 10*3/uL [facility] Comp Metabolic Profon 2021 (cont.) Normal [facility] Comment on above: Result Comment: Aver age GFR for 30-39 years old: 107 mL/min/1.73sq m Chronic Kidney Disease: <60 mL/min/1.73sq m Kidney failure: <15 mL/min/1.73sq m eGFR calculated using average adult body mass. Additional eGFR calculator available at: http://www.Thumb.ServerEngines/multiple_crcl_2012.htm Performed By: #### P HEP, HIVCMB #### [id number] Dimensional Inspector: Kashmir Oliver MD #### CRIS, CBC, HCG #### [address] [place] [address] Dimensional Inspector: Blaze Aguilar MD Albumin [Mass/Vol] 4.4 g/dL Normal 3.5-5.2 [facility] Comment on above: Performed By: #### P HEP, HIVCMB #### [address] [id number] Dimensional Inspector: Kashmir Oliver MD #### CP, CBC, HCG #### [facility] [address] [place] [address] [place] [address] Dimensional Inspector: Blaze Aguilar MD Albumin/Glob Ratio 1.4 Normal 1.0-2.5 [facility] Comment on above: Performed By: #### P HEP, HIVCMB #### [address] [address] Dimensional Inspector: Kashmir Oliver MD #### CP, CBC, HCG #### [address] [place] [id number] Dimensional Inspector: Blaze Aguilar MD Alkaline Phos 103 U/L Normal 35-104 [facility] Comment on above: Performed By: #### P HEP, HIVCMB #### [address] [address] Dimensional Inspector: Kashmir Oliver MD #### CP, CBC, HCG #### [address] [place] [id number] Dimensional Inspector: Blaze Aguilar MD ALT [Catalytic activity/Vol] 13 U/L Normal 5-33 [facility] Comment on above: Performed By: #### P HEP, HIVCMB #### [address] [address] Dimensional Inspector: Kashmir Oliver MD #### CP, CBC, HCG #### [address] [place] [id number] Dimensional Inspector: Blaze Aguilar MD Anion gap [Moles/Vol] 11 mmol/L Normal 9-17 [facility] Comment on above: Performed By: #### P HEP, HIVCMB #### [address] [address] Dimensional Inspector: Kashmir Oliver MD #### CP, CBC, HCG #### [address] [place] [id number] Dimensional Inspector: Blaze Aguilar MD AST [Catalytic activity/Vol] 14 U/L Normal <32 [facility] Comment on above: Performed By: #### P HEP, HIVCMB #### [facility] [address] [place] [address] Dimensional Inspector: Kashmir Oliver MD #### CP, CBC, HCG #### [facility] [address] [place], [place] [id number] Dimensional Inspector: Blaze Aguilar MD Bilirubin [Mass/Vol] 0.21 mg/dL Low 0.3-1.2 [facility] Comment on above: Performed By: #### P HEP, HIVCMB #### [address] [address] Dimensional Inspector: Kashmir Oliver MD #### CP, CBC, HCG #### [facility] [address] [place] [address] [place] [address] Dimensional Inspector: Blaze Aguilar MD BUN/CRE Ratio 9 Normal 9-20 [facility] Comment on above: Performed By: #### P HEP, HIVCMB #### [address] [address] Dimensional Inspector: Kashmir Oliver MD #### CP, CBC, HCG #### [facility] [address] [place] [address] Dr. [place], [place] [id number] Dimensional Inspector: Blaze Aguilar MD Calcium [Mass/Vol] 9.3 mg/dL Normal 8.6-10.4 [facility] Comment on above: Performed By: #### P HEP, HIVCMB #### [address] [address] Dimensional Inspector: Kashmir Oliver MD #### CP, CBC, HCG #### [facility] [address] [place], [place] [id number] Dimensional Inspector: Blaze Aguilar MD Chloride [Moles/Vol] 105 mmol/L Normal 98-107 [facility] Comment on above: Performed By: #### P HEP, HIVCMB #### [address] [address] Dimensional Inspector: Kashmir Oliver MD #### CP, CBC, HCG #### [facility] [address] [place], [place] 8245783 Dimensional Inspector: Blaze Aguilar MD CO2 [Moles/Vol] 25 mmol/L Normal 20-31 [facility] Comment on above: Performed By: #### P HEP, HIVCMB #### [address] [address] Dimensional Inspector: Kashmir Oliver MD #### CP, CBC, HCG #### [facility] [address] [place], [place] [id number] Dimensional Inspector: Blaze Aguilar MD Creatinine [Mass/Vol] 0.87 mg/dL Normal 0.50-0.90 [facility] Comment on above: Performed By: #### P HEP, HIVCMB #### [address] [address] Dimensional Inspector: Kashmir Oliver MD #### CP, CBC, HCG #### [facility] [address] [place] [address] Dr. [place], [place] [id number] Dimensional Inspector: Blaze Aguilar MD GFR, Amer >60 Normal >60 [facility] Comment on above: Performed By: #### P HEP, HIVCMB #### [address] [address] Dimensional Inspector: Kashmir Oliver MD #### CP, CBC, HCG #### [facility] [address] [place] [address] [place], [place] [id number] Dimensional Inspector: Blaze Aguilar MD GFR,non Amer >60 Normal >60 [facility] Comment on above: Performed By: #### P HEP, HIVCMB #### [address] [address] Dimensional Inspector: Kashmir Oliver MD #### CP, CBC, HCG #### [address] [place], [place] [id number] Dimensional Inspector: Blaze Aguilar MD Glucose [Mass/Vol] 79 mg/dL Normal 70-99 [facility] Comment on above: Performed By: #### P HEP, HIVCMB #### [address] [address] Dimensional Inspector: Kashmir Oliver MD #### CP, CBC, HCG #### [address] [place], [place] 9696383 Dimensional Inspector: Blaze Aguilar MD Potassium [Moles/Vol] 3.7 mmol/L Normal 3.7-5.3 [facility] Comment on above: Performed By: #### P HEP, HIVCMB #### [address] [address] Dimensional Inspector: Kashmir Oliver MD #### CP, CBC, HCG #### [address] [place], [place] 9573983 Dimensional Inspector: Blaze Aguilar MD Protein [Mass/Vol] 7.6 g/dL Normal 6.4-8.3 [facility] Comment on above: Performed By: #### P HEP, HIVCMB #### [address] [address] Dimensional Inspector: Kashmir Oliver MD #### CP, CBC, HCG #### [address] [place] [address] Dimensional Inspector: Blaze Aguilar MD Sodium [Moles/Vol] 141 mmol/L Normal 135-144 [facility] Comment on above: Performed By: #### P HEP, HIVCMB #### [address], [place] [id number] Dimensional Inspector: Kashmir Oliver MD #### CP, CBC, HCG #### [facility] [address] [place] [address] Dimensional Inspector: Blaze Aguilar MD Staging: Normal [facility] Comment on above: Result Comment: Stag e 1: Some kidney damage normal GFR Stage 2: Mild kidney damage GFR 60-89 Stage 3: Moderate kidney damage GFR 30-59 Stage 4: Severe kidney damage GFR 15-29 Stage 5: Severe kidney damage GFR <15 ESRD - chronic treatment by dialysis or transplant Performed By: #### P HEP, HIVCMB #### [address] [place], [place] [id number] Dimensional Inspector: Kashmir Oliver MD #### CP, CBC, HCG #### [facility] [address] [place] [address] [place] [address] Dimensional Inspector: Blaze Aguilar MD Urea nitrogen [Mass/Vol] 8 mg/dL Normal 6-20 [facility] Comment on above: Performed By: #### P HEP, HIVCMB #### [id number] [place], [place] [id number] Dimensional Inspector: Kashmir Oliver MD #### CP, CBC, HCG #### [facility] [address] [place] [address] [place] [address] Dimensional Inspector: Blaze Aguilar MD Comprehensive Metabolic Pane [facility] 01-10-2022 Albumin [Mass/Vol] 4.4 g/dL 3.5 - 5.2 g/dL [facility] Albumin/Globulin [Mass ratio] 1.4 {ratio} [facility] ALP (Bld) [Catalytic activity/Vol] 103 U/L 35 - 104 U/L [facility] ALT [Catalytic activity/Vol] 13 U/L 5 - 33 U/L [facility] Anion gap [Moles/Vol] 11 mmol/L 9 - 17 mmol/L [facility] AST [Catalytic activity/Vol] 14 U/L <32 [facility] Bilirubin [Mass/Vol] 0.21 mg/dL Low 0.3 - 1 .2 mg/dL [facility] Calcium [Mass/Vol] 9.3 mg/dL 8.6 - 10. 4 mg/dL [facility] Chloride [Moles/Vol] 105 mmol/L 98 - 10 7 mmol/L [facility] CO2 [Moles/Vol] 25 mmol/L 20 - 31 mmol/L [facility] Creatinine [Mass/Vol] 0.87 mg/dL 0.50 - 0.90 mg/dL [facility] Free PSA/Total PSA [Mass fraction] 7.6 g/dL 6.4 - 8.3 g/dL [facility] GFR >60 >60 mL/min [facility] GFR Non- >60 >60 mL/min [facility] Glucose [Mass/Vol] 79 mg/dL 70 - 99 mg/dL [facility] Interpretation and review of laboratory results Abnormal [facility] Potassium [Moles/Vol] 3.7 mmol/L 3.7 - 5.3 mmol/L [facility] Sodium [Moles/Vol] 141 mmol/L 135 - 144 mmol/L [facility] Urea nitrogen (BldV) [Mass/Vol] 8 mg/dL 6 - 20 mg/dL [facility] Urea nitrogen/Creatinine (Bld) [Mass ratio] 9 [facility] HCG Qualitative, Serumon hCG Qual Negative NEGATIVE [facility] Comment on above: Specimens with hCG l evels near the threshold of the test (25 mIU/mL) may give a negative or indeterminate result. In such cases, another test should be performed with a new specimen in 48-72 hours. If early is suspected clinically in this setting, correlation with quantitative serum b-hCG level is suggested. [facility] has confirmed the use of plasma for this test. This has not been cleared or approved by the U.S. Food and Drug Administration. The FDA has determined that such clearance is not necessary. [facility] HCG Screen, Bloodon 06-27-20 22 HCG Screen, Blood Negative Normal [facility] Comment on above: Result Comment: Spec imens with hCG levels near the threshold of the test (25 mIU/mL) may give a negative or indeterminate result. In such cases, another test should be performed with a new specimen in 48-72 hours. If early is suspected clinically in this setting, correlation with quantitative serum b-hCG level is suggested. [facility] has confirmed the use of plasma for this test. This has not been cleared or approved by the U.S. Food and Drug Administration. The FDA has determined that such clearance is not necessary. Performed By: #### P HEP, HIVCMB #### [address] [place] [address] Dimensional Inspector: Kashmir Oliver MD #### CP, CBC, HCG #### [facility] [address] [place] [address] [place] [address] Dimensional Inspector: Blaze Aguilar MD HIV Ag/Abon 01-10-2022 HIV Ag/Ab Non-Reactive Normal NR [facility] Comment on above: Result Comment: No l aboratory evidence of HIV infection. If acute HIV infection is suspected, consider testing for HIV-1 RNA. Performed By: #### P HEP, HIVCMB #### [address] [place] [address] Dimensional Inspector: Kashmir Oliver MD #### CP, CBC, HCG #### [address] [place] [address] Dimensional Inspector: Blaze Aguilar MD HIV Screenon 01-10-2022 HIV Ag/Ab Non-Reactive NONREACTIVE [facility] Comment on above: No laboratory eviden ce of HIV infection. If acute HIV infection is suspected, consider testing for HIV-1 RNA. [facility] Hepatitis Acute Redd 01-10 Hep A Ab,IgM Non-Reactive Normal NR [facility] Comment on above: Performed By: #### P HEP, HIVCMB #### [address] [place] [address] Dimensional Inspector: Kashmir Oliver MD #### CP, CBC, HCG #### [address] [place], [place] [id number] Dimensional Inspector: Blaze Aguilar MD Hep B Core Ab,IgM Non-Reactive Normal [facility] Comment on above: Performed By: #### P HEP, HIVCMB #### [address] [address] Dimensional Inspector: Kashmir Oliver MD #### CP, CBC, HCG #### [address] [place] 1003483 Dimensional Inspector: Blaze Aguilar MD Hep B Surf Ag Non-Reactive Normal [facility] Comment on above: Performed By: #### P HEP, HIVCMB #### [address] [address] Dimensional Inspector: Kashmir Oliver MD #### CP, CBC, HCG #### [address] [place] [id number] Dimensional Inspector: Blaze Aguilar MD Hep C Ab Non-Reactive Normal [facility] Comment on above: Result Comment: The hepatitis C procedure used in our laboratory is a Chemiluminescent test specific for three recombinant HCV antigens. A negative anti-HCV result indicates that the antibodies to hepatitis C virus are not present at this time. Individuals with reactive anti-HCV should be considered infected and infectious until proven otherwise. Confirmation of all equivocal or reactive results is recommended by ordering HCV RNA by PCR. Performed By: #### P HEP, HIVCMB #### [address] [address] Dimensional Inspector: Kashmir Oliver MD #### CP, CBC, HCG #### [address] [place], [place] [id number] Dimensional Inspector: Blaze Aguilar MD Hepatitis Panel, [facility] HAV IgM IA Qn (S) Non-Reactive NONREACTIVE [facility] Hep B Core Ab, IgM Non-Reactive NONREACTIVE [facility] Hepatitis B Surface Ag Non-Reactive NONREACTIVE [facility] Hepatitis C Ab Non-Reactive NONREACTIVE [facility] Comment on above: The hepatitis C procedure used in our laboratory is a Chemiluminescent test specific for three recombinant HCV antigens. A negative anti-HCV result indicates that the antibodies to hepatitis C virus are not present at this time. Individuals with reactive anti-HCV should be considered infected and infectious until proven otherwise. Confirmation of all equivocal or reactive results is recommended by ordering HCV RNA by PCR. [facility] Laboratory - Chemistry and C hemistry - challengeon 01-10-2022 GFR/1.73 sq M.predicted MDRD (S/P/Bld) [Vol rate/Area] [facility] Comment on above: Average GFR for 30-3 9 years old: 107 mL/min/1.73sq m Chronic Kidney Disease: <60 mL/min/1.73sq m Kidney failure: <15 mL/min/1.73sq m eGFR calculated using average adult body mass. Additional eGFR calculator available at: http://www.Thumb.ServerEngines/multiple_crcl_2012.htm Stage 1: Some kidney damage normal GFR Stage 2: Mild kidney damage GFR 60-89 Stage 3: Moderate kidney damage GFR 30-59 Stage 4: Severe kidney damage GFR 15-29 Stage 5: Severe kidney damage GFR <15 ESRD - chronic treatment by dialysis or transplant Vital Signs Date Time Vital Sign Value Performing Clinician More stover 10-07-2023 18:01-0400 Diastolic blood pressure 79 mm[Hg] PHYSICIAN NO [facility] 10-07-2023 18:01-0400 Heart rate 72 /min PHYSICIAN NO [facility] 10-07-2023 18:01-0400 Respiratory rate 18 /min PHYSICIAN NO [facility] 10-07-2023 18:01-0400 SaO2% (BldA) [Mass fraction] 100 % PHYSICIAN NO [facility] 10-07-2023 18:01-0400 Systolic blood pressure 145 mm[Hg] PHYSICIAN NO [facility] 10-07-2023 17:30-0400 Body height 170.18 cm PHYSICIAN NO [facility] 10-07-2023 17:30-0400 Body temperature 97.8 [degF] PHYSICIAN NO [facility] 10-07-2023 17:30-0400 Body weight 63.9 kg PHYSICIAN NO [facility] 10-06-2023 08:48-0400 Body height 170.2 cm [facility] 2 [facility] 10-06-2023 08:48-0400 Body mass index (BMI) [Ratio] 21.75 kg/m2 [address] 10-06-2023 08:48-0400 Body weight 63.[address] 10-06-2023 08:48-0400 Diastolic blood pressure 60 mm[Hg] [address] 10-06-2023 08:48-0400 Systolic blood pressure 112 mm[Hg] [address] 09-26-2023 14:03-0400 Body height 170.2 cm Brian Diaz MD Work Phone: [facility] 09-26-2023 14:03-0400 Body mass index (BMI) [Ratio] 21.89 kg/m2 Brian Diaz MD Work Phone: [facility] 09-26-2023 14:03-0400 Body weight 63.4 kg Brian Diaz MD Work Phone: [facility] 09-26-2023 14:03-0400 Diastolic blood pressure 74 mm[Hg] Brian Diaz MD Work Phone: [facility] 09-26-2023 14:03-0400 Heart rate 67 /min Brian Diaz MD Work Phone: [facility] 09-26-2023 14:03-0400 Systolic blood pressure 130 mm[Hg] Brian Diaz MD Work Phone: [facility] 01-28-2023 12:04-0400 Diastolic blood pressure 99 mm[Hg] PHYSICIAN NO [facility] 01-28-2023 12:04-0400 Systolic blood pressure 154 mm[Hg] PHYSICIAN NO [facility] 01-28-2023 12:00-0400 Heart rate 58 /min PHYSICIAN NO [facility] 01-28-2023 12:00-0400 Respiratory rate 16 /min PHYSICIAN NO [facility] 01-28-2023 12:00-0400 SaO2% (BldA) [Mass fraction] 98 % PHYSICIAN NO [facility] 01-28-2023 09:48-0400 Body height 170.18 cm PHYSICIAN NO [facility] 01-28-2023 09:48-0400 Body temperature 97.8 [degF] PHYSICIAN NO [facility] 01-28-2023 09:48-0400 Body weight 63.5 kg PHYSICIAN NO [facility] Encounters Encounter Date Encounter Type Care Provider Facility Start: 01-17-2024 End: 01-17-2024 ambulatory [facility] Start: 01-17-2024 End: 01-17-2024 ambulatory [facility] Start: 12-28-2023 ambulatory SELF SELF [facility] Start: 12-20-2023 End: 12-20-2023 ambulatory DARLINE LEGGETT [facility] Start: 12-20-2023 End: 12-20-2023 [facility] DARLINE LEGGETT [facility] Start: 12-20-2023 End: 12-20-2023 ambulatory [facility] Start: 12-19-2023 End: 12-19-2023 ambulatory [facility] Start: 12-19-2023 End: 12-19-2023 ambulatory [facility] Start: 12-14-2023 ambulatory SELF SELF [facility] Start: 12-06-2023 End: 12-06-2023 [facility] Start: 11-30-2023 ambulatory Alta SUE [facility] Start: 11-29-2023 End: 11-29-2023 ambulatory DARLINE LEGGETT [facility] Start: 11-23-2023 End: 11-23-2023 ambulatory [place] C [facility] Start: 11-23-2023 End: 11-23-2023 ambulatory [facility] Start: 11-16-2023 ambulatory [facility] Start: 11-13-2023 End: 11-13-2023 Emergency department patient visit NO PCP NO PCP [facility] Start: 11-13-2023 End: 11-14-2023 Emergency department patient visit MARICHUY Maryanne NICHOLAS [facility] Start: 11-12-2023 End: 11-12-2023 Emergency department patient visit NO NO PCP [facility] Start: 11-09-2023 ambulatory [facility] Start: 11-06-2023 End: 11-07-2023 ambulatory JUWAN MEYERS [facility] Start: 11-02-2023 ambulatory [facility] Start: 10-27-2023 End: 10-27-2023 ambulatory NICOLE KERN [facility] Start: 10-27-2023 End: 10-27-2023 ambulatory [facility] Start: 10-26-2023 ambulatory SELF SELF [facility] Start: 10-20-2023 Orders Only Jemma roblero COMPUTER 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-CNM Work Phone: [facility] Comment on above: 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) Start: 10-07-2023 End: 10-07-2023 Emergency department patient visit Lopez Tamez Facility:[facility] Start: 10-07-2023 End: 10-07-2023 Emergency department patient visit PHYSICIAN SHAINA FAMILY [facility] Work Phone: Start: 10-07-2023 Orders Only Jahaira quintero COMPUTER 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-CNM Work Phone: [facility] Comment on above: care, subse quent in first trimester (Primary Dx) Start: 10-06-2023 Patient encounter procedure Natalie Mitchell [facility] Comment on above: Food insecurity; High risk multigravida, first trimester Start: 10-06-2023 End: 10-06-2023 ambulatory [facility] Start: 10-06-2023 End: 10-06-2023 ambulatory [facility] Start: 10-06-2023 End: 10-06-2023 Office outpatient new 45 minutes [facility] Comment on above: care, subse quent in first trimester (Primary Dx); Mild hemophilia A (CMS-HCC); 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; Less than 8 weeks gestation of ; Encounter for supervision of normal in multigravida; Food insecurity; High risk multigravida, first trimester; History of gestational hypertension; complicated by subutex maintenance, antepartum (CMS-HCC); Nausea/vomiting in ; Mild asthma, unspecified whether complicated, unspecified whether persistent; Tobacco smoking affecting in first trimester Start: 10-06-2023 End: 10-06-2023 ambulatory [place] ALONSOLEMUEL [facility] Start: 09-27-2023 Orders Only Brian Daiz MD Work Phone: [facility] Hematology Comment on above: Help Me Grow; Karen rodriguezagement Results Start: 09-26-2023 End: 09-26-2023 [facility] Start: 09-26-2023 End: 09-26-2023 Office outpatient visit 15 minutes Brian Diaz MD Work Phone: [facility] Comment on above: Mild hemophilia A (C MS-HCC) (Primary Dx); History of anemia; 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 Start: 01-28-2023 End: 01-28-2023 Emergency department patient visit PHYSICIAN NO FAMILY Facility:[facility] Start: 01-28-2023 End: 01-28-2023 Emergency department patient visit PHYSICIAN NO FAMILY [facility] Work Phone: Start: 04-06-2022 End: 04-06-2022 Emergency department patient visit [facility] Facility:[facility] Start: 04-06-2022 End: 04-06-2022 ambulatory [facility] Facility:[facility] Start: 04-04-2022 Admission to establishment Lnig [facility] Start: 04-04-2022 ambulatory Ling [facility] Comment on above: Aggressive Behavior Start: 04-04-2022 End: 04-04-2022 Emergency department patient visit BEN BYERS Facility:[facility] Start: 01-26-2022 End: 01-26-[address] CINDY SALINAS Facility: Start: 01-10-2022 End: 01-11-2022 ambulatory [facility] Start: 01-10-2022 End: 01-10-2022 Subsequent hospital visit by physician MTHZ Laboratory Procedures Date Procedure Procedure Detail Performing Clinician Start: 12-06-2023 Amniocentesis Amniocentesis JUWAN MEYERS Start: 10-06-2023 Antibody screen Chs 2 Start: 10-06-2023 AMB REFERRAL TO [facility] Leander LOPEZ Work Phone: Start: 10-06-2023 Adult depression screening assessment Natalie Mitchell Start: 09-26-2023 Follow-up visit Follow-up BRIAN DIAZ Start: 09-26-2023 Adult depression screening assessment Brian Diaz MD Work Phone: Start: 01-10-2022 Antibody hiv-1&hiv-2 single result Fahad Calloway COMPUTER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 obtained with verbal consent given today. 23. [facility] Referral: given 24. Social work consult: completed today. SW saw and spoke with patient today regarding additional resources. 25. Release of records forms to be complete at checkout today for first two deliveries at different facilities. 1st: [place], [place] Dr. De La Garza. Small amount of bleeding per pt but stopped with shot in her leg. 2nd delivery: [facility], [place], [place]. hemorrhage with this delivery. 26. Follow up: 3 weeks with CNM when patient is a minimum of 11 gestational weeks for OBI physical and genetic/carrier screening. After that time she will need to be seen by [facility]. The patient was given the opportunity to ask questions. She voiced understanding and is in agreement with the plan above. Greater than 50% of this 45 minute appointment was spent with the patient on counseling and coordination of care regarding early gestation care. JESSICA Bull APRN-CNM 10/06/23 1314 Pt here for Confirmation of at 8w0d Complaining of nausea & vomiting, requesting medication. Requesting PNV This was a unplanned , is accepting of . EPDS: 0 documented in this encounter [facility] [employer] [facility] 09-27-2023 Miscellaneous Notes 09/27/23 Help me Grow referral made Ba baldwin MSW SALES ENABLEMENT SPECIALIST 09/27/23 Phone call to [place] [phone] spoke with Nahomy referral made for case management services; reference # [id number] Ba Lauderdale STORAGE WORKER SALES ENABLEMENT SPECIALIST documented in this encounter [facility] 09-27-2023 Telephone encounter Note 09/27/23 Help [employer] referral made Ba allan STORAGE WORKER SALES ENABLEMENT SPECIALIST [facility] Work Phone: 09-27-2023 Telephone encounter Note 09/27/23 Phone call to [place] [phone] spoke with Nahomy referral made for case management services; reference # [id number] Ba Lauderdale STORAGE WORKER SALES ENABLEMENT SPECIALIST [facility] 09-27-2023 Miscellaneous Notes ----- Message from Brian Diaz MD sent at 09/27/2023 8:46 AM EDT ----- Results noted. Will ask hemophilia center to contact patient with results. CBC is normal. Iron studies are consistent with iron deficiency with a ferritin of 16. Will start additional oral iron supplement. Factor 8 activity level is low at 35%. We will need to repeat factor 8 activity level in the 3rd trimester of . Phone call to patient regarding lab results and plan of care. Understanding verbalized. documented in this encounter [facility] 09-27-2023 Telephone encounter Note ----- Message from Brian Diaz MD sent at 09/27/2023 8:46 AM EDT ----- Results noted. Will ask hemophilia center to contact patient with results. CBC is normal. Iron studies are consistent with iron deficiency with a ferritin of 16. Will start additional oral iron supplement. Factor 8 activity level is low at 35%. We will need to repeat factor 8 activity level in the 3rd trimester of . [facility] 09-27-2023 Telephone encounter Note Phone call to patient regarding lab results and plan of care. Understanding verbalized. [facility] 09-26-2023 History of Presen t illness Narrative Images from the original note were not included. [facility] ADULT & PEDIATRIC BENIGN HEMATOLOGY PEDIATRIC THROMBOPHILIA Dr.Dagmar Janis Whitten PA-C OUTPATIENT FOLLOW-UP NOTE: [facility] Patient ID: Nahomy Galvan, 33 y.o. female PCP: No primary care provider on file. : 1990 CHIEF COMPLAINT: Chief Complaint Patient presents with Follow-up HISTORY OF PRESENT ILLNESS: Nahomy Galvan is a 33 y.o. 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 Patient's baseline factor 8 level is 39%, in 2016. Her brother has hemophilia A. She was also diagnosed with platelet function defect/ delta granule storage pool deficiency at the hemophilia center, platelet electron microscopy showed 2.34 delta/dense granules per platelet. She has had 4 pregnancies, 4 daughters in the past, 2007, 2009, 2016, and 2020. She had a hemorrhage in 2009 requiring blood transfusion. Then she was diagnosed with hemophilia A and DGSPD. In 2017 she had a , per chart review, required factor and platelets prior to delivery. Patient also reports she received Amicar with her vaginal delivery in 2020. Her brother has severe hemophilia A. Does report symptoms of iron deficiency including fatigue and cold sensitivity. She has a planned dental extraction coming up (not scheduled yet). She also is currently @ 7 wks, has not seen craft artist yet. Denies any bleeding or bruising. PAST HEMATOLOGY HISTORY: Oncology History Overview Note PATIENT DOES NOT HAVE CANCER-USED FOR A BLEEDING HISTORY Diagnosis: Storage Pool Deficiency (EM 2.34, Abnormal to ADP x3, Epi x2) Hemophilia A, mild (Factor 8 39%) Diagnosis hx: menorrhagia; half brother w/ Hemophilia A Treatment: Advate,Amciar, Lysteda NO RESPONSE TO DDAVP Diagnostic Results: Genetic testing [facility] labs) 12-30-2016-positive for F8 mutation [id number] (consistent with mild hemophilia) Date Test Name Results Template 11/25/2016 Factor VIII Activity 66 % activity Normal 09/13/2016 Factor VIII Activity 54 % activity Normal 09/08/2015 Electron microscopy for platelet dense granules 2.34 dg Abnormal 09/08/2015 Factor VIII Activity Diagnosis Baseline 39 % activity Abnormal 09/08/2015 vWF Antigen Diagnosis Baseline 85 % Normal 09/08/2015 VWF factor activity - ristocetin cofactor diagnosis baseline 67 % activity Normal 03/01/2010 Collagen ADP platelet function test 87 s Normal Coag Workup 03/01/2010 Collagen/epinephrine platelet function test 162 s Normal Coag Workup 03/01/2010 Electron microscopy for platelet dense granules 4.93 dg Normal Coag Workup 03/01/2010 Factor VIII Activity Baseline 63 % activity Normal 03/01/2010 PT - Prothrombin time - INR in Platelet poor plasma by Coagulation assay 11.6 s Normal Coag Workup 03/01/2010 PTT - Partial thromboplastin time - Activated partial thrombplastin time (aPTT) in Platelet poor plasma by Coagulation assay 33 s Normal Coag Workup 03/01/2010 Ristocetin cofactor assay 52 % activity Normal 03/01/2010 von Willebrand factor antigen level 64 % Normal 03/01/2010 von Willebrand factor multimer assay - von Willebrand factor (vWf) multimers in Platelet poor plasma by Immunoblot (IB) 0 Normal Coag Workup 01/26/2010 Factor IX Activity Diagnosis Baseline 144 % Normal Coag Workup 01/26/2010 Factor VIII Activity Baseline 59 % activity Normal 03/01/2010 Platelet aggregation assay - Platelet aggregation XXX induced [Substance threshold] in Platelet rich plasma Abnormal Hemophilia A ([facility]) 01/16/2010 Surgery Vaginal adexomxw-GRD-4 units of blood, cryoprecipitate and DDAVP 03/01/2010 Initial Diagnosis Hemophilia A ([facility]) 02/05/2021 Surgery Vaginal delivery of baby girl. Platelets given prior to epidural. Platelet dysfunction ([facility]) 1995 Surgery Adenoidectomy-bleeding, required packing 12/11/2007 Surgery Vaginal Delivery-increased PP bleeding, did not require blood products 01/16/2010 Surgery Vaginal deliver-4 units of blood, cryoprecipitate and DDAVP 03/01/2010 Initial Diagnosis Platelet dysfunction -dense granules-2.34, abnl agg to ADP, Epi 03/05/2010 Surgery Contraceptive device inserted; removed 05/25/2010 07/19/2010 Surgery Mirena coil inserted 08/2011 Surgery Dental Procedure 04/11/2017 Surgery - Advate 1980 units & 1 units Platelets prior 02/05/2021 Surgery Vaginal delivery of baby girl. Platelets given prior to epidural. REVIEW OF SYSTEMS: Complete 10-point ROS is negative except as mentioned in HPI. PAST MEDICAL HISTORY: Past Medical History: Diagnosis Date Abnormal Pap smear of cervix 2015 low grade she said it showed Anemia 02/2010 with Depression 2011 on meds Depression 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 pt reports hx of heroin abuse in 2016, used subutex for a few days Urinary tract infection in the past Varicella age 18 PAST SURGICAL HISTORY: Past Surgical History: Procedure Laterality Date ADENOIDECTOMY 1995 [place]-increased bleeding pt still has tonsils N/A 04/11/2017 Performed by Lilliam Patrick MD at [facility] OR DENTAL SURGERY 08/2011 INTRAUTERINE DEVICE INSERTION 03/05/2010 Removed 05/25/2010 INTRAUTERINE DEVICE INSERTION 07/19/2010 Mirena VAGINAL DELIVERY 12/11/2007 VAGINAL DELIVERY 01/16/2010 VAGINAL DELIVERY 02/05/2021 PAST FAMILY HISTORY: Family History Problem Relation Age of Onset Hemophilia Mother mild No Known Problems Father Hemophilia Brother half brother Sickle cell trait Brother Von Willebrand disease Daughter Hemophilia Daughter mild Hypertension Paternal Grandfather Diabetes Paternal Grandfather Kidney disease Paternal Grandfather Hypertension Paternal Grandmother Hypertension Maternal Grandmother Hypertension Maternal Grandfather Diabetes Maternal Grandfather Stroke Maternal Grandfather Epistaxis Maternal Grandfather Kidney disease Maternal Grandfather Hearing loss Maternal Grandfather Von Willebrand disease Sister SOCIAL HISTORY: [facility] in [facility] currently. 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- [employer] Tobacco Use Smoking status: Every Day Packs/day: 0.25 Years: 8.00 Additional pack years: 0.00 Total pack years: 2.00 Types: Cigarettes Last attempt to quit: 06/16/2020 Years since quittin.2 Smokeless tobacco: Never Substance and Sexual Activity Alcohol use: No Alcohol/week: 0.0 standard drinks of alcohol Drug use: Not Currently Frequency: 7.0 times per week Types: Fentanyl, Heroin Comment: 1 GM DAILY FOR 3 YEARS OR MORE Sexual activity: Yes Partners: Male Other Topics Concern Not on file Social History Narrative Not on file Social Determinants of Health Financial Resource Strain: Not on file Food Insecurity: No Food Insecurity (04/18/2023) Hunger Screening Food Insecurity - Worry: Never True Food Insecurity - Inability: Never True Transportation Needs: Not on file Physical Activity: Not on file Stress: Not on file Social Connections: Not on file Interpersonal Safety: Not At Risk (10/27/2020) Humiliation, Afraid, Rape, and Kick questionnaire Fear of Current or Ex-Partner: No Emotionally Abused: No Physically Abused: No Sexually Abused: No Housing Instability: Not on file MEDICATIONS: Current Outpatient Medications on File Prior to Visit Medication Sig Dispense Refill acetaminophen (TYLENOL EXTRA STRENGTH) 500 mg tablet Take 2 tablets (1,000 mg total) by mouth every 8 (eight) hours as needed for pain. 30 tablet 0 ARIPiprazole (ABILIFY) 5 mg tablet Take 5 mg by mouth daily. ibuprofen (MOTRIN) 800 mg tablet Take 1 tablet (800 mg total) by mouth every 6 (six) hours as needed for pain. 30 tablet 0 tranexamic acid (LYSTEDA) 650 mg tablet Take 2 tablets (1,300 mg total) by mouth 3 (three) times a day as needed (for up to 5 days for vaginal bleeding). 30 tablet 0 No current facility-administered medications on file prior to visit. ALLERGIES: Allergies Allergen Reactions Ceclor [Cefaclor] Rash PHYSICAL EXAMINATION: Vital signs: BP 130/74 (BP Site: Right Arm, BP Postition: Sitting) Pulse 67 Ht 170.2 cm (5' 7 ) Wt 63.4 kg (139 lb 12.4 oz) BMI 21.89 kg/m General appearance: alert, no acute distress HEENT: supple CV: RRR, no murmurs PULM: CTAB, no wheezing ABD: soft, NT/ND EXT: No edema. LABORATORY DATA: Lab Results Component Value Date WBC 13.1 (H) 02/06/2021 HGB 10.0 (L) 02/06/2021 HCT 28.9 (L) 02/06/2021 MCV 93 02/06/2021 PLT 198 02/06/2021 Lab Results Component Value Date GLU 91 02/05/2021 CALCIUM 8.9 02/05/2021 SODIUM 135 02/05/2021 K 4.0 02/05/2021 CO2 25 02/05/2021 BUN 7 02/05/2021 CREATININE 0.70 02/05/2021 Lab Results Component Value Date ALT 10 02/05/2021 AST 17 02/05/2021 ALKPHOS 131 (H) 02/05/2021 No results found for: INR , PROTIME IMAGING: Reviewed in EPIC BILLING: Total time spent was 21 minutes: Preparing to see the patient (e.g., review of tests) Obtaining and/or reviewing separately obtained history Performing a medically appropriate examination and/or evaluation Counseling and educating the patient/family/caregiver Ordering medications, tests, or procedures Documenting clinical information in the electronic or other health record ASSESSMENT: Nahomy Galvan is a 33 y.o. 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 1. Mild hemophilia A / hemophilia A carrier: This was diagnosed after post hemorrhage (2009). Baseline factor level was 39% in 2006. Her brother has severe hemophilia A. She has had 4 pregnancies in the past, 2007, 2009, 2016, and 2020. Her in 2009 resulted in hemorrhage then she was diagnosed. In 2016 and 2020, she received plts and factor prior to last two deliveries. She has had 4 daughters, no sons in past. Patient was advised to update us if she's having a male or female this . If she has a boy, he will have a 50% chance of getting hemophilia. 2. Delta/dense granule storage pool deficiency: Platelet electron microscopy showed 2.34 delta/dense granules per platelet. We discussed this diagnosis. I consider this a mild bleeding disorder. She falls into the abnormal range at the [facility] electron microscopy lab, but also falls into the abnormal range by other laboratories ([facility] uses 1.2 as their cutoff and other labs use 2 as their cutoff). - Stable. - See delivery plan below. 3. plan: She is currently . - Check factor 8 level during . If above 40%, then no specific treatment is needed at time of delivery unless bleeding is encountered. - Per updated guidelines and discussions (with OB and anesthesia), will repeat platelet electron microscopy in the 3rd trimester of (around 28-30 weeks). If repeat dense granule count is normal (above 4), then the patient does not need any extra measures (platelet transfusion and/or TXA) from a hematologic standpoint. If repeat dense granule count is still low (below 4), then a consult with anesthesia is recommended and a single dose of TXA (1g IV over 10 minutes), given before neuro axial anesthesia is placed, is recommended. It is recommended that the most experienced provider available place the neuroaxial anesthetic. - Will recheck Factor VIII levels today and possibly again in third trimester. Patient was advised to update us if she's having a male or female. - If excessive bleeding occurs post-delivery, then recommended TXA at standard dosing. - Notify the food service assistant me at [phone] of any bleeding complications or concerns. - Notify hemophilia center of any questions or concerns at [phone]. 4. History of iron deficiency anemia: ferritin in 11/2020 was 14. Reports she has taken oral iron before but never required IV iron infusions. Reports symptoms of iron deficiency including fatigue and cold sensitivity. Will recheck iron studies today. 5. History of opioid abuse: abstinent: on Suboxone RECOMMENDATIONS: - continue oral iron supplementation, will check iron labs today - check Factor VIII level today - she is scheduled to see machine set up technician only after 10 weeks, we'll request sooner follow-up given her medical conditions - she was advised to update us on gender. If she has a boy, he will have a 50% chance of getting hemophilia - she will update the facility if/when she's scheduled for her dental work - plan described above - RTC in third trimester - SABRINA LUTZ MD 09/26/23 5:09 PM [facility] Hem/onc fellow, PGY-4 Attending Attestation: I saw the patient. I participated and was physically present during the critical/laird portions of the service. I was directly involved in the management and treatment plan of the patient. I reviewed the resident's note. Additional Notes/Findings: Patient known to me from the past. She has a history of mild hemophilia A / hemophilia A carrier status. She also has a history of a questionable platelet function defect, but the clinical significance this in the setting of her hemophilia is less clear. She was here today for dental clearance for dental extractions, but this will likely be on hold given her . We discussed her today. She is currently 7 weeks along. We will refer her to [place] for [facility]. Our perinatal social worker met with the patient today. We will check labs today including CBC and iron studies. She may need additional iron supplementation during . She will continue with vitamin with iron for now. We will so check factor 8 activity level today. If level is above 40% during , then no specific treatment is needed for her hemophilia at the time of delivery unless bleeding is encountered. We will see her back later in to repeat factor 8 level. We will also plan to repeat her platelet electron microscopy in the 3rd trimester as per Ob/anesthesia protocol. RTC in 3rd trimester. Brian Diaz MD Adult Document Control Specialist [facility] Pager: [phone] Patient here for follow-up with Dr. Diaz. Estimated Date of Delivery: 05/11/24. LMP: 08/05/23 Has not set up OB appointment yet. Denies epistaxis or bleeding issues. Started on PNV pe self OTC. Noted Food Insecurity. BERTHA Pendleton notified. [facility] possible [facility] extractions and then implants.No scheduled yet. Informed pt. To call once scheduled. Dr. Diaz notified. Pt is a 33 year old female with vWD, here for follow up and Pt agreeable to meet with SW Per pt report, she is about 7 weeks , denies any bleeding concerns She is currently residing in [place], [place] with her grimes male roommate. The father of the baby is male named Filipe. They do not have a positive relationship, he is not currently involved, he has relapsed and whereabouts are unknown. Nahomy has a total of 4 other children; Kriss 15yrs (Hemo A), Karina 13 (vWD, SPD), Yadi 6yr (not affected), Sirena 2yrs (not tested). All four children were removed by [facility] in [facility] and placed in the care of relatives. Kriss and Sirena are in the care of there maternal grandmother; Karina and Yadi are in the care of their fathers. All four children have different fathers. Nahomy has a history of drug abuse, drug of choice is Fentanyl. Nahomy last used on September 16, 2023. She denies use of any other drug at this time. She is involved in suboxone treatment at [facility] in [place], [place]. She is planning on enrolling into counseling services with [facility]. DILMA provided a few options and mailed a list of providers. Nahomy is also in need of dental care, she is linked with [facility], dilma will mail a list of community dental agencies. Nahomy does not have any baby items, dilma provided resources that include a free pack and play, [employer] for clothing and baby items, [employer] car seat, [facility], [place]. Nahomy was agreeable for a referral to [facility], and [facility] casemanagement. Pt is currently working 30 hours per week, earning about 17.00 per hour, rent is 850.00 splitting cost with her roommate. Nahomy expressed a food shortage and request a script to the [employer] food pantry. Dr. Diaz printed a script to the pantry. Dr. Diaz put in a referral to the [place] for [facility] Nahomy is knowledgeable on how to use medicaid cab, she arranged for her transportation, she utilized medicaid cab today for her appointment. Nahomy has a past history of depression, denies any current SI. She has a past attempt of suicide when she was 18 years old took tylenol PM, had stomach pumped. No other attempts. DILMA encouraged to link to recommended supportive services to increase supports Nahomy had a medical alert, she has lost the bracelet. DILMA will research options. Report with Dr. Diaz Resources: Counseling [facility] [place] Safe sleep program [employer] Ba GARCÍAW documented in this encounter [facility] 07-25-2023 Miscellaneous Notes 07/25/22 Phone call to Nahomy, to provide support and assistance for getting to today's scheduled appointment, the listed number on file [phone] is not a working number. Ba GARCÍAW documented in this encounter [facility] 07-25-2023 Telephone encounter Note 07/25/22 Phone call to Nahomy, to provide support and assistance for getting to today's scheduled appointment, the listed number on file [phone] is not a working number. Ba STONE [employer] Work Phone: 02-23-2023 Note Patient Education Ma terials Follows: Dental Abscess A dental abscess is an infection around a tooth that may involve pain, swelling, and a collection of pus, as well as other symptoms. Treatment is important to help with symptoms and to prevent the infection from spreading. The general types of dental abscesses are: ? Pulpal abscess. This abscess may form from the inner part of the tooth (pulp). ? Periodontal abscess. This abscess may form from the gum. What are the causes? This condition is caused by a bacterial infection in or around the tooth. It may result from: ? Severe tooth decay (cavities). ? Trauma to the tooth, such as a broken or chipped tooth. What increases the risk? This condition is more likely to develop in males. It is also more likely to develop in people who: ? Have cavities. ? Have severe gum disease. ? Eat sugary snacks between meals. ? Use tobacco products. ? Have diabetes. ? Have a weakened disease-fighting system (immune system). ? Do not brush and care for their teeth regularly. What are the signs or symptoms? Mild symptoms of this condition include: ? Tenderness. ? Bad breath. ? Fever. ? A bitter taste in the mouth. ? Pain in and around the infected tooth. Moderate symptoms of this condition include: ? Swollen neck glands. ? Chills. ? Pus drainage. ? Swelling and redness around the infected tooth, in the mouth, or in the face. ? Severe pain in and around the infected tooth. Severe symptoms of this condition include: ? Difficulty swallowing. ? Difficulty opening the mouth. ? Nausea. ? Vomiting. How is this diagnosed? This condition is diagnosed based on: ? Your symptoms and your medical and dental history. ? An examination of the infected tooth. During the exam, your dental care provider may tap on the infected tooth. You may also need to have X-rays taken of the affected area. How is this treated? This condition is treated by getting rid of the infection. This may be done with: ? Antibiotic medicines. These may be used in certain situations. ? Antibacterial mouth rinse. ? Incision and drainage. This procedure is done by making an incision in the abscess to drain out the pus. Removing pus is the first priority in treating an abscess. ? A root canal. This may be performed to save the tooth. Your dental care provider accesses the visible part of your tooth (crown) with a drill and removes any infected pulp. Then the space is filled and sealed off. ? Tooth extraction. The tooth is pulled out if it cannot be saved by other treatment. You may also receive treatment for pain, such as: ? Acetaminophen or NSAIDs. ? Gels that contain a numbing medicine. ? An injection to block the pain near your nerve. Follow these instructions at home: Medicines ? Take oogh-jkp-qwwspgk and prescription medicines only as told by your dental care provider. ? If you were prescribed an antibiotic, take it as told by your dental care provider. Do not stop taking the antibiotic even if you start to feel better. ? If you were prescribed a gel that contains a numbing medicine, use it exactly as told in the directions. Do not use these gels for children who are younger than 2 years of age. ? Use an antibacterial mouth rinse as told by your dental care provider. General instructions ? Gargle with a mixture of salt and water 3?4 times a day or as needed. To make salt water, completely dissolve ??1 tsp (3?6 g) of salt in 1 cup (237 mL) of warm water. ? Eat a soft diet while your abscess is healing. ? Drink enough fluid to keep your urine pale yellow. ? Do not apply heat to the outside of your mouth. ? Do not use any products that contain nicotine or tobacco. These products include cigarettes, chewing tobacco, and vaping devices, such as e-cigarettes. If you need help quitting, ask your dental care provider. ? Keep all follow-up visits. This is important. How is this prevented? ? Excellent dental home care, which includes brushing your teeth every morning and night with fluoride toothpaste. Floss one time each day. ? Get regularly scheduled dental cleanings. ? Consider having a dental sealant applied on teeth that have deep grooves to prevent cavities. ? Drink fluoridated water regularly. This includes most tap water. Check the label on bottled water to see if it contains fluoride. ? Reduce or eliminate sugary drinks. ? Eat healthy meals and snacks. ? Wear a mouth guard or face shield to protect your teeth while playing sports. Contact a health care provider if: ? Your pain is worse and is not helped by medicine. ? You have swelling. ? You see pus around the tooth. ? You have a fever or chills. Get help right away if: ? Your symptoms suddenly get worse. ? You have a very bad headache. ? You have problems breathing or swallowing. ? You have troub (more content not included)... [facility] 04-06-2022 Note Education Materials Urology Dysuria Follow-up with your primary care physician to review this emergency department visit. Your GC/chlamydia test is pending. You were treated prophylactically for possible infection, take the antibiotics as prescribed. Dysuria is pain or discomfort during urination. The pain or discomfort may be felt in the part of the body that drains urine from the bladder (urethra) or in the surrounding tissue of the genitals. The pain may also be felt in the groin area, lower abdomen, or lower back. You may have to urinate frequently or have the sudden feeling that you have to urinate (urgency). Dysuria can affect anyone, but it is more common in females. Dysuria can be caused by many different things, including: ? Urinary tract infection. ? Kidney stones or bladder stones. ? Certain STIs (sexually transmitted infections), such as chlamydia. ? Dehydration. ? Inflammation of the tissues of the vagina. ? Use of certain medicines. ? Use of certain soaps or scented products that cause irritation. Follow these instructions at home: Medicines ? Take omsj-mxu-mcrcctu and prescription medicines only as told by your health care provider. ? If you were prescribed an antibiotic medicine, take it as told by your health care provider. Do not stop taking the antibiotic even if you start to feel better. Eating and drinking ? Drink enough fluid to keep your urine pale yellow. ? Avoid caffeinated beverages, tea, and alcohol. These beverages can irritate the bladder and make dysuria worse. In males, alcohol may irritate the prostate. General instructions ? Watch your condition for any changes. ? Urinate often. Avoid holding urine for long periods of time. ? If you are female, you should wipe from front to back after urinating or having a bowel movement. Use each piece of toilet paper only once. ? Empty your bladder after sex. ? Keep all follow-up visits. This is important. ? If you had any tests done to find the cause of dysuria, it is up to you to get your test results. Ask your health care provider, or the department that is doing the test, when your results will be ready. Contact a health care provider if: ? You have a fever. ? You develop pain in your back or sides. ? You have nausea or vomiting. ? You have blood in your urine. ? You are not urinating as often as you usually do. Get help right away if: ? Your pain is severe and not relieved with medicines. ? You cannot eat or drink without vomiting. ? You are confused. ? You have a rapid heartbeat while resting. ? You have shaking or chills. ? You feel extremely weak. Summary ? Dysuria is pain or discomfort while urinating. Many different conditions can lead to dysuria. ? If you have dysuria, you may have to urinate frequently or have the sudden feeling that you have to urinate (urgency). ? Watch your condition for any changes. Keep all follow-up visits. ? Make sure that you urinate often and drink enough fluid to keep your urine pale yellow. This information is not intended to replace advice given to you by your health care provider. Make sure you discuss any questions you have with your health care provider. Document Revised: 02/12/2021 Document Reviewed: 02/12/2021 [employer] Patient Education ? [address] [facility] 04-04-2022 Miscellaneous Notes BEHAVIORAL HEALTH BRIEF INTAKE NOTE SERVICE DATE: 04/04/2022 SERVICE TIME: 9:24 AM Nahomy Galvan is a 32 year old [facility]. Pt denied suicidal and homicidal ideations, denied auditory and visual hallucinations. 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 History of anemia Personal history of diseases of blood and blood-forming organs 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 Less than 8 weeks gestation of documented [facility] this encounter [facility]* Diagnosis Food insecurity High risk multigravida, first trimester [facility] Diagnosis care, subsequent in first trimester- Primary 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 Less than 8 weeks gestation of Encounter for supervision of normal in multigravida Food insecurity High risk multigravida, first trimester History of gestational hypertension complicated by subutex maintenance, antepartum ([facility]) Nausea/vomiting in Unspecified vomiting of , unspecified as to episode of care Mild asthma, unspecified whether complicated, unspecified whether persistent Tobacco smoking affecting in first trimester documented [facility]* Diagnosis care, subsequent in first trimester- Primary documented [facility] this encounter [facility]* Diagnosis 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 * Good Food Sources of Iron (Tunisian) [facility] [employer] SystemInstructionsNot on file documented in this [facility]Pro[facility] [employer] SystemInstructionsNot on file documented in this [facility]ProMem[facility] SystemInstructionsNot on file documented in this encounterPro[facility] SystemInstructionsNot on file documented in this encounterProMed[facility] SystemInstructionsNot on file documented in this encounterProMedi[facility] SystemInstructionsNot on file documented in this encounterProDecatur [facility] Health SystemInstructionsNot on file documented in this encounterProDecatur [facility] Health SystemInstructionsNot on file documented in this encounterProMedi[facility] Health SystemInstructionsNot on file documented in this encounterProMemorial Health [facility] SystemReason for referral (narrative)* Health Education (Routine) - Pending Review Specialty Diagnoses / Procedures Referred By Gilma granados Referred To Contact Nutrition Diagnoses History of anemia 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 Less than 8 weeks gestation of Brian Diaz MD [address] [place] [id number] [facility] [address] [place] [address] Referral ID Status Reason Start Date Expiration Date V isits Requested Visits Authorized [id number] Pending Review 09/26/2023 09/25/2024 12 12 * Consultation (Routine) - Pending Review Specialty Diagnoses / Procedures Referred By Gilma granados Referred To Contact Obstetrics and Gynecology Diagnoses 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 Less than 8 weeks gestation of Brian Diaz MD [address] [place] [id number] [facility] [address] [place] [address] Referral ID Status Reason Start Date Expiration Date Visits Requested Visits Authorized [id number] Pending Review Specialty Services Required 09/26/2023 09/25/[address] [facility] SystemReason for referral (narrative)* Consultation (Routine) - Pending Review Specialty Diagnoses / Procedures Referred By Gilma granados Referred To Contact Addiction Medicine / Tobacco Cessation Diagnoses High risk multigravida, first trimester Tobacco smoking affecting in first trimester [facility] [address] [place] [address] [facility] [address] [place] [address] Referral ID Status Reason Start Date Expiration Date Visits Requested Visits Authorized [id number] Pending Review Specialty Services Required 10/06/2023 10/05/2024 1 1 * Health Education (Routine) - Pending Review Specialty Diagnoses / Procedures Referred By Gilma t Referred To Contact Nutrition Diagnoses Food insecurity High risk multigravida, first trimester [facility] [address] [place] [address] [facility] [address] [place] [address] Referral ID Status Reason Start Date Expiration Date V isits Requested Visits Authorized [id number] Pending Review 10/06/2023 10/05/[address] [facility] [address] [facility] Summary Purpose Family History No Family History Records Found Relationship Condition Age at Onset Recorded Date/T araceli Not Specified Hypertension Unknown Diabetes mellitus Unknown Advance Directives No Advanced Directives Records Found Advance Directive Response Recorded Date/ Time Advance Directives No March 8:51pm Latest Code Status on File Code Status Date Activated Date Inactivated Comments Full Code 02/05/2021 8:24 AM 02/07/2021 6:33 PM Code Status History Code Status Date Activated Date Inactivated Comments Full Code 01/20/2021 10:03 PM 01/21/2021 4:44 PM Full Code 11/17/2020 2:02 PM 11/18/2020 5:59 PM Latest Code Status on File Code Status Date Activated Date Inactivated Comments Full Code 02/05/2021 8:24 AM 02/07/2021 6:33 PM Code Status History Code Status Date Activated Date Inactivated Comments Full Code 01/20/2021 10:03 PM 01/21/2021 4:44 PM Full Code 11/17/2020 2:02 PM 11/18/2020 5:59 PM Chief Complaint and Reason for Visit Chief Complaint vomiting, back pain Chief Complaint mouth pain Reason for Referral Specialty Diagnoses / Procedures Referred By Contac t Referred To Contact Maternal and Medicine Diagnoses care, subsequent in first trimester Procedures [facility] with or without consult Jahaira Villasenor, COMPUTER 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-CNM [address] [facility], [address] [address] [facility] Maternal Med [address] [place] [address] Referral ID Status Reason Start Date Expiration Date V isits Requested Visits Authorized [id number] Pending Review 10/07/2023 10/06/2024 1 1 Additional Source Comments INFORMATION SOURCE (unrecogn ized section and content) DATE CREATED AUTHOR 01/11/2022 [facility] DATE CREATED AUTHOR AUTHOR'S ORGANIZ ATION 02/04/2022 [facility] DATE CREATED AUTHOR AUTHOR'S ORGANIZ ATION 04/16/2022 [facility] DATE CREATED AUTHOR AUTHOR'S ORGANIZ ATION 03/04/2023 [facility] DATE CREATED AUTHOR AUTHOR'S ORGANIZ ATION 05/29/2023 [facility] DATE CREATED AUTHOR AUTHOR'S ORGANIZ ATION 09/28/2023 [facility] DATE CREATED AUTHOR AUTHOR'S ORGANIZ ATION 10/18/2023 [facility] DATE CREATED AUTHOR AUTHOR'S ORGANIZ ATION 11/14/2023 [facility] DATE CREATED AUTHOR AUTHOR'S ORGANIZ ATION 12/29/2023 [facility] DATE CREATED AUTHOR AUTHOR'S ORGANIZ ATION 01/18/2024 [facility] Source Comments (unrecognize d section and content) In the event this informatio n is protected by the Federal Confidentiality of Alcohol and Drug Abuse Patient Records regulations: The Federal rules restrict any use of the information to criminally investigate or prosecute any alcohol or drug abuse patient.[facility] Reason for Visit (unrecogniz ed section and content) Reason Onset Date Comments Aggressive Behavior 04/04/2022 Reason Onset Date Comments follow up 07/25/2023 Reason Comments Follow-up Reason Onset Date Comments [facility] 09/27/2023 [place] [facility]agement 09/27/2023 Reason Onset Date Comments Results 09/27/2023 Reason Comments Confirmation of Specialty Diagnoses / Procedures Referred By Contac t Referred To Contact Obstetrics and Gynecology Diagnoses 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 Specialty Start Date End Date Jemma Prieto, COMPUTER 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-SHIPS OR BARGES LOADER [address] [place] [phone] PCP - General Family Medicine 07/21/20 Team Status: Inactive Member Role Status Dates PHYSICIAN NO FAMILY Primary Care Provider Active Start: October 07, 2023 End: October 07, 2023 Lopez Tamez DO Emergency Provider Active Sta rt: October 07, 2023 End: October 07, 2023 Goals (unrecognized section and content) Goals may be documented in a n alternate sectionNot on filedocumented as of this encounterNot on filedocumented as of this encounterNot on filedocumented as of this encounterNot on filedocumented as of this encounterNot on filedocumented as of this encounterNot on filedocumented as of this encounterNot on filedocumented as of this encounterNot on filedocumented as of this encounterNot on filedocumented as of this encounterGoals may be documented in an alternate sectionNot on filedocumented as of this encounterNot on filedocumented as of this encounter FOR RECORDS PERTAINING TO PATIENTS WHO ARE OR HAVE BEEN ENROLLED IN A CHEMICAL DEPENDENCY/SUBSTANCEABUSE PROGRAM, SOME INFORMATION MAY BE OMITTED. This clinical summary was aggregated from multiple sources. Caution should be exercised in using it in the provision of clinical care. This summary normalizes information from multiple sources, and as a consequence, information in this document may materially change the coding, format and clinical context of patient data. In addition, data may be omitted in some cases. CLINICAL DECISIONS SHOULD BE BASED ON THE PRIMARY CLINICAL RECORDS. [facility]. provides no warranty or guarantee of the accuracy or completeness of information in this document.
--- NOTE | 2024-02-05 10:17 | ED.GENADUL1 ---
HPI HPI - General Adult General Chief complaint: Dental/Oral Stated complaint: MOUTH PAIN, TOOTH PAIN Time Seen by Provider: 02/05/24 10:01 Source: patient Mode of arrival: walk-in Limitations: no limitations History of Present Illness HPI narrative: Patient is a 34-year-old female who is presenting to the ER today with chief concern about her blood pressure secondary to dental infection. Patient blood pressure is within normal limits in the ER. Patient has not taken her blood pressure, she thought it would be elevated secondary to pain or infection. Patient was started on clindamycin yesterday for dental infection, she taste pus that is coming from tooth #17. Patient has had multiple, multiple, multiple dental infections without seeing a dentist. Patient says that she has a dental appointment in April. Patient states she is 25 weeks . She has no pelvic pain, vaginal bleeding; no abnormalities with at this point. Patient has mild swelling to left side of her face, also has a few lymph nodes noted to the left side of her neck. Patient has no meningeal signs or symptoms. Patient has no chest pain, shortness of breath. No minimal nausea, no vomiting, no other acute complaints. 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 Patient sees family services for PCP. Patient says that she has a dentist appointment in April. All systems are negative except as noted/marked. All systems reviewed and otherwise negative. Nurses note and vital signs reviewed and patient is not hypoxic. Nurses notes reviewed and patient is noted to be non-hypoxic. General: The patient is comfortable, alert and oriented x3, well appearing, non toxic in no apparent distress. Head: Atraumatic and normocephalic. Eyes: Normal conjunctiva ENT: The oropharynx is normal. No pharyngeal erythema, uvular edema, tonsillar exudates, asymmetry or trismus. Uvula is midline. Mouth is normal to inspection With the exception of a pain on percussion of the tooth #16/17 and evidence of dental caries. There has minimal left-sided evidence of facial asymmetry; NO abscess formation. Floor of the mouth is soft. No tenderness in the submental or submandibular space. No tongue elevation or deviation. The patient has no evidence of periapical abscess, gingivitis, ANUG or other acute pathology. Airway is patent. Patient has several areas of dental caries as well, including teeth 31, 32. Neck: The neck demonstrates normal range of motion. No meningeals signs are present. No stridor. No masses or lymphandenopathy noted besides mild left anterior cervical lymphadenopathy; no posterior lymphadenopathy noted.. Respiratory: No acute distress, lungs are clear to auscultation, no wheezing, rhonchi, or rales noted. No stridor or retractions are noted. Cardiovascular: Regular rate and rhythm Skin: The skin exam shows no evidence of rashes Neuro: Alert and oriented x4, normal speech Lymphatic: No cervical lymphadenopathy Related Data Home Medications ?Medication ?Instructions ?Recorded ?Confirmed aripiprazole 2 mg tablet (Abilify) 2 mg PO DAILY 03/21/23 02/05/24 buprenorphine 300 mg/1.5 mL 300 mg subcut .monthy 03/21/23 03/21/23 solution,exten.rel.subcutaneous syringe (Sublocade) aspirin 81 mg chewable tablet 1 tab PO DAILY 02/05/24 02/05/24 Previous Rx's ?Medication ?Instructions ?Recorded clindamycin HCl 300 mg capsule 300 mg PO Q6H 10 days #40 caps 11/26/23 ondansetron 4 mg disintegrating 4 mg PO Q4H PRN nausea and 02/05/24 tablet vomiting 3 days #6 tabs Allergies Allergy/AdvReac Type Severity Reaction Status Date / Time cefaclor [From [facility]] Allergy Mild Rash Verified 02/05/24 09:49 Opioid HPI Opioid Management Most Recent Opioid Data: No Data to Display Exam Constitutional Vital Signs, click to edit/add: Last Vital Signs Temp 97.9 F 02/05/24 09:44 Pulse 70 02/05/24 09:44 Resp 16 02/05/24 09:44 BP 119/62 02/05/24 09:44 Pulse Ox 99 02/05/24 09:44 O2 Del Method Room Air 02/05/24 09:44 Course Vital Signs Vital signs: Vital Signs Temperature 97.9 F 02/05/24 09:44 Pulse Rate 70 02/05/24 09:44 Respiratory Rate 16 02/05/24 09:44 Blood Pressure 119/62 02/05/24 09:44 Pulse Oximetry 99 02/05/24 09:44 Oxygen Delivery Method Room Air 02/05/24 09:44 Temperature 97.9 F 02/05/24 09:44 Pulse Rate 70 02/05/24 09:44 Respiratory Rate 16 02/05/24 09:44 Blood Pressure 119/62 02/05/24 09:44 Pulse Oximetry 99 02/05/24 09:44 Oxygen Delivery Method Room Air 02/05/24 09:44 Medical Decision Making MDM Narrative Medical decision making narrative: Patient has acute on chronic dental infection. 10 minutes was spent at bedside educating patient that she must follow-up with dentist for definitive care. Patient was given a dental clinic list referral sheet. Patient was given nausea medicine prophylactically. Patient can use Tylenol as needed for pain. There is no acute significant abscess noted. Patient has minimal left anterior cervical lymphadenopathy. Patient blood pressure is within normal limits at this time. Education on blood pressure being consistently greater than 140/90 and following up with her OB was done at bedside. Patient understands this, patient can use ice 20 minutes on, 20 minutes off if needed. Patient was given a prescription for Zofran as if needed for nausea and vomiting. Patient just darted taking clindamycin yesterday. Patient will follow-up with PCP as needed as well. Dental clinic sheet was provided. No questions at discharge. No significant intraoral pathology noted besides chronic dental caries that she is not definitively treating with dental follow-up. Patient says that she has a dental appointment in April Discharge Plan Discharge Stand Alone Forms: Work/School Release, Portal Instructions Chief Complaint: Dental/Oral Clinical Impression: Dental caries, Toothache, Atypical face pain Patient Disposition: Home, Self-Care Time of Disposition Decision: 10:08 Condition: Fair Prescriptions / Home Meds: New ondansetron 4 mg tablet,disintegrating 4 mg PO Q4H PRN (Reason: nausea and vomiting) 3 Days Qty: 6 0RF No Action aripiprazole [Abilify] 2 mg tablet 2 mg PO DAILY Hold Instructions: Doctor's Order Sublocade 300 mg/1.5 mL solution, extended rel syringe 300 mg SUBCUT .monthy clindamycin HCl 300 mg capsule 300 mg PO Q6H 10 Days Qty: 40 0RF aspirin 81 mg tablet,chewable 1 tab PO DAILY Print Language: Kinyarwanda Instructions: Lymphadenopathy (ED), Toothache (ED), Atypical Facial Pain (ED) Additional Instructions: Use ice 20 minutes on, 20 minutes off for pain, swelling Check your blood pressure and grocery stores or drugstores, anything consistently greater than 140/90 is concerning for elevated blood pressure during Finish antibiotics as prescribed. Use nausea medication as needed. Dental clinic list has been given to you, you must follow-up with dentist and most likely will need teeth extracted to help fix chronic dental caries Use Tylenol as needed for pain Education on lymphadenopathy was given to you for educational purposes as well. Lymph Nodes should improve after infection has improved, if not follow-up with PCP or CHARGE MANAGER. Referrals: Physician,Non-Staff, MD [Primary Care Provider] - 1 week
== END 2024-02-05 10:25 | disposition home or self-care (01) ==
PROVIDERS: Emergency Provider Emergency Medicine
DX: O99.612 Diseases of the digestive system complicating pregnancy, second trimester (principal); K08.89 Other specified disorders of teeth and supporting structures; K02.9 Dental caries, unspecified; O26.892 Other specified pregnancy related conditions, second trimester; G50.1 Atypical facial pain; Z3A.25 25 weeks gestation of pregnancy
CPT/HCPCS: 99283